=== PATIENT | female | born 1960 | race Caucasian/White ===

== ENCOUNTER 2016-07-22 17:01 | Observation (INO) | payer SELFPAY ==
[~2016-07-22] VITALS: Ht 167.6 cm; Wt 53.2 kg
[~2016-07-22 17:01] MED LIST: LORTA10 PO
[2016-07-22 17:05] VITALS: BP 97/59; PULSE 91; RESP 18; TEMP 98.7; O2SAT 96
[2016-07-22] MEDS ORDERED: SODIUM CHLOR 0.9% 1000 ML INJ 1,000 ML IV SCH (17:22)
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
[2016-07-22] MEDS ORDERED: SODIUM CHLORIDE 0.9% FLUSH 10 ML FLUSH IV FLUSH PRN ×2 (17:30→19:45)
[2016-07-22 18:03] LABS: HEMO FLAGS DIFF FINAL; MEAN CELL VOLUME 99.6 FL (80.0-100.0); MEAN CORPUSCULAR HEMOGLOBIN 34.5 PG (27.0-34.0); MEAN CORPUSCULAR HGB CONC 34.6 % (32.0-36.0); PLATELET COUNT 227 TH/MM3 (150-450); RED BLOOD COUNT 3.81 MIL/MM3 (4.00-5.30); RED CELL DISTRIBUTION WIDTH 14.8 % (11.6-17.2); WHITE BLOOD COUNT 8.4 TH/MM3 (4.0-11.0)
[2016-07-22 18:04] LABS: AUTOMATED NEUTROPHIL # 3.5 TH/MM3 (1.8-7.7); BASOPHIL # 0.1 TH/MM3 (0-0.2); BASOPHIL % 1.3 % (0.0-2.0); EOSINOPHIL # 0.2 TH/MM3 (0-0.4); EOSINOPHIL % 2.9 % (0.0-4.0); LYMPH % 47.1 % (9.0-44.0); LYMPHOCYTE # 4.1 TH/MM3 (1.0-4.8); MONO % 7.3 % (0.0-8.0); NEUT % 41.4 % (16.0-70.0)
[2016-07-22 18:10] LABS: BLOOD, URINE SMALL (NEG); GLUCOSE,URINE NEG (NEG); KETONE, URINE TRACE mg/dL (NEG); NITRITE,URINE NEG (NEG); PH, URINE 5.5 (5.0-8.5)
[2016-07-22 18:12] LABS: CHLORIDE 110 MEQ/L (98-107); POTASSIUM 3.4 MEQ/L (3.5-5.1); SODIUM (NA) 146 MEQ/L (136-145)
[2016-07-22 18:14] VITALS: O2SAT 98
[2016-07-22 18:16] LABS: ANION GAP 9 MEQ/L (5-15); BICARBONATE 27.4 MEQ/L (21.0-32.0)
[2016-07-22 18:17] LABS: BLOOD UREA NITROGEN 22 MG/DL (7-18)
[2016-07-22 18:17] LABS: URINE COLOR YELLOW (YELLW/STRAW)
[2016-07-22 18:18] LABS: AMPHETAMINE, URINE NEG (NEG); BARBITURATES, URINE NEG (NEG); COCAINE, URINE NEG (NEG)
[2016-07-22 18:18] LABS: APTT (PATIENT) 24.4 SEC (24.3-30.1); INTERNATIONAL NORMALIZED RATIO 0.9 RATIO; PROTHROMBIN TIME - PATIENT 9.8 SEC (9.8-11.6)
[2016-07-22 18:19] LABS: ALT (GPT) 61 U/L (10-53); AST (GOT) 69 U/L (15-37); GLOMERULAR FILTRATION RATE 105 ML/MIN (>89)
[2016-07-22 18:21] LABS: TOTAL BILIRUBIN ADULT 0.3 MG/DL (0.2-1.0)
[2016-07-22 18:22] LABS: ALKALINE PHOSPHATASE 45 U/L (45-117)
[2016-07-22 18:22] LABS: COMMENT (UR) CULT NOT INDICATED; CULTURE IF INDICATED CULT NOT INDICATED; SQUAMOUS EPITHELIAL CELL URINE 0-5 /hpf (0-5); WBC, URINE 0-2 /hpf (0-5)
--- NOTE | 2016-07-22 18:27 | RADHPO ---
EXAM DATE/TIME: 07/22/2016 17:52 [facility] COMPARISON: CHEST SINGLE AP, October 06, 2013, 19:33. INDICATIONS : Chest tightness. MEDICAL HISTORY : None. SURGICAL HISTORY : None. ENCOUNTER: Initial ACUITY: 3 months PAIN SCORE: 4/10 LOCATION: Bilateral chest FINDINGS: The lungs are clear without infiltrate, nodule, or mass. There is no appreciable pleural effusion fo r technique. Heart and mediastinum are unremarkable. CONCLUSION: No acute cardiopulmonary disease. Leyla Renteria MD on July 22, 2016 at 18:26 Board Certified Radiologist. This report was verified electronically.
--- NOTE | 2016-07-22 18:40 | RADHPO ---
EXAM DATE/TIME: 07/22/2016 17:56 [facility] COMPARISON: No previous studies available for comparison. INDICATIONS : Bilateral flank pain. Low back pain. Dysuria. ORAL CONTRAST: No oral contrast ingested. RADIATION DOSE: 5.96 CTDIvol (mGy) MEDICAL HISTORY : None SURGICAL HISTORY : Appendectomy. ENCOUNTER: Initial ACUITY: 2 weeks PAIN SCALE: 7/10 LOCATION: Bilateral flank TECHNIQUE: Volumetric scanning of the abdomen and pelvis was performed. Using automated exposure control and ad justment of the mA and/or kV according to patient size, radiation dose was kept as low as reasonably achievable to obtain optimal diagnostic quality images. FINDINGS: CT Abdomen: The liver, spleen, pancreas, kidneys, adrenals are unremarkable. There is no evidence for any appreciable pathological adenopathy, free fluid, or bowel obstruction. Chronic vascular calcific ations are present involving the aorta, iliac arteries without any significant stenosis or aneurysmal dilatations for technique. There is no evidence for any stones in the kidneys or the course of the ureters on either side. There is no hydronephrosis. CT pelvis: There is moderate amount of stool throughout the colon and in the cecum and towards the ti p of the cecum anteromedially there is a masslike area measures 4.6 cm may be a fecaloma, however a m ass is difficult to exclude. CONCLUSION: Possible fecaloma in the cecum, however a mass is difficult to exclude and may consid er nonemergent colonoscopy based on clinical grounds. Leyla Renteria MD on July 22, 2016 at 18:35 Board Certified Radiologist. This report was verified electronically.
[2016-07-22 19:03] VITALS: BP 112/62; PULSE 79; RESP 18; O2SAT 94
[2016-07-22 19:12] LABS: ACETAMINOPHEN LESS THAN 2.0 MCG/ML (10.0-30.0)
[2016-07-22] MEDS ORDERED: BISACODYL 10 MG SUPP RECTAL PRN (19:45)
[2016-07-22] MEDS ORDERED: LORazepam 2 MG TAB PO PRN (19:45)
[2016-07-22] MEDS ORDERED: ACETAMINOPHEN 325 MG TAB PO PRN (19:45)
[2016-07-22] MEDS ORDERED: HALOPERIDOL LACTATE 5 MG/ML AMP IM PRN (19:45)
[2016-07-22] MEDS ORDERED: ONDANSETRON HCL 4 MG/2 ML VIAL IVP PRN (19:45)
[2016-07-22] MEDS ORDERED: LORazepam 2 MG/ML VIAL IV PUSH PRN ×4 (19:45)
[2016-07-22] MEDS ORDERED: FLUMAZENIL 0.5 MG/5 ML VIAL IV PUSH PRN (19:45)
[2016-07-22] MEDS ORDERED: LORazepam 1 MG TAB PO PRN (19:45)
[2016-07-22 20:06] VITALS: BP 114/60; PULSE 80; RESP 18; O2SAT 96
[2016-07-22] MEDS: MULTIVITAMIN INJ 10 ML, FOLIC ACID INJ 1 MG in SODIUM CHLORID 0.9% 500 ML INJ 500 ML IV SCH (20:39)
[2016-07-22] MEDS: SODIUM CHLORIDE 0.9% FLUSH 10 ML FLUSH IV FLUSH SCH (21:00)
[2016-07-23 00:45] VITALS: BP 141/84; PULSE 80; RESP 16; TEMP 99; O2SAT 97
[2016-07-23] MEDS: SODIUM CHLOR 0.9% 1000 ML INJ 1,000 ML IV SCH ×4 (00:55→22:43)
[2016-07-23] MEDS: THIAMINE INJ 100 MG in SODIUM CHLORIDE 0.9% INJ 100 ML IV SCH ×2 (00:56→20:00)
[2016-07-23 04:00] VITALS: BP 155/74; PULSE 79; RESP 16; TEMP 98.8; O2SAT 93
[2016-07-23 06:01] LABS: AUTOMATED NEUTROPHIL # 3.9 TH/MM3 (1.8-7.7); BASOPHIL # 0.1 TH/MM3 (0-0.2); BASOPHIL % 0.9 % (0.0-2.0); EOSINOPHIL # 0.3 TH/MM3 (0-0.4); EOSINOPHIL % 4.1 % (0.0-4.0); HEMO FLAGS DIFF FINAL; LYMPH % 38.3 % (9.0-44.0); LYMPHOCYTE # 2.9 TH/MM3 (1.0-4.8); MEAN CELL VOLUME 98.2 FL (80.0-100.0); MEAN CORPUSCULAR HEMOGLOBIN 33.1 PG (27.0-34.0); MEAN CORPUSCULAR HGB CONC 33.7 % (32.0-36.0); MONO % 5.9 % (0.0-8.0); NEUT % 50.8 % (16.0-70.0); PLATELET COUNT 190 TH/MM3 (150-450); RED BLOOD COUNT 3.67 MIL/MM3 (4.00-5.30); RED CELL DISTRIBUTION WIDTH 14.9 % (11.6-17.2); WHITE BLOOD COUNT 7.6 TH/MM3 (4.0-11.0)
[2016-07-23 06:10] LABS: CHLORIDE 112 MEQ/L (98-107); POTASSIUM 3.4 MEQ/L (3.5-5.1); SODIUM (NA) 146 MEQ/L (136-145)
[2016-07-23 06:14] LABS: ANION GAP 10 MEQ/L (5-15); BICARBONATE 24.1 MEQ/L (21.0-32.0)
[2016-07-23 06:15] LABS: BLOOD UREA NITROGEN 15 MG/DL (7-18)
[2016-07-23 06:18] LABS: ALT (GPT) 58 U/L (10-53); AST (GOT) 66 U/L (15-37); GLOMERULAR FILTRATION RATE 144 ML/MIN (>89)
[2016-07-23 06:19] LABS: TOTAL BILIRUBIN ADULT 0.6 MG/DL (0.2-1.0)
[2016-07-23 06:20] LABS: ALKALINE PHOSPHATASE 39 U/L (45-117)
[2016-07-23 08:00] VITALS: BP 140/81; PULSE 68; RESP 16; TEMP 98.4; O2SAT 96
[2016-07-23] MEDS: SODIUM CHLORIDE 0.9% FLUSH 10 ML FLUSH IV FLUSH SCH ×2 (09:00→21:00)
[2016-07-23 12:00] VITALS: BP 155/75; PULSE 62; RESP 16; TEMP 98.2; O2SAT 95
--- NOTE | 2016-07-23 13:23 | HHI.HP ---
[facility] [place] [facility] Unknown Admission Diagnosis alcohol intoxication, abdominal pain, fecaloma versus colon mass Diagnoses: Chief Complaint: Alcohol intoxication, joint aches, pain. Travel History International Travel<30 Days: No Contact w/Intl Traveler <30 Da: No Traveled to Known Affected Are: No History of Present Illness Ms. Bhat is a 55 year old female with a history of alcoholism who presented to the ED on 07/22/2016 for evaluation of joint pains and aches. She also requested alcohol detox. She tried to detox on her own but had trouble dealing with withdrawal symptoms. So she started drinking again. She reports room spinning sensation whenever she moves her head. However, slow movement of her head does not cause much symptoms. She also expressed suicidal ideations. Initial alcohol level was 334. ED workup included CT abdomen pelvis which showed possible fecaloma in the cecum however a mass was difficult to exclude. Patient was subsequently admitted to the hospital for observation. Patient denies any chest pain, SOB, fever, chills. No changes in bowel or bladder habits. Review of Systems Except as stated in HPI: all other systems reviewed are Neg Past Family Social History Past Medical History Alcoholism Arthritis. Past Surgical History Appendectomy Gynecological surgery. Reported Medications No medication on a regular basis. Allergies: Coded Allergies: No Known Allergies (Unverified , 07/22/16) Family History Mother - lung cancer. Dad left when she was 3. Social History Smokes pack a day. Drinks alcohol. Denies using illicit drugs. Physical Exam Vital Signs Vital Signs Date Time Temp Pulse Resp B/P Pulse Ox O2 Delivery O2 Flow Rate FiO2 07/23/16 08:00 98.4 68 16 140/81 96 07/23/16 04:00 98.8 79 16 155/74 93 07/23/16 00:45 99.0 80 16 141/84 97 07/23/16 00:26 18 07/22/16 23:04 18 07/22/16 23:04 18 07/22/16 21:28 18 Room Air 07/22/16 20:15 80 18 07/22/16 20:06 80 18 114/60 96 Room Air 07/22/16 19:03 79 18 112/62 94 Room Air 07/22/16 19:03 82 18 94 Room Air 07/22/16 18:14 98 Room Air 07/22/16 17:05 98.7 91 18 97/59 96 Physical Exam GENERAL: This is a well-nourished, well-developed patient, in no apparent distress. No tremors. SKIN: No rashes, ecchymoses or lesions. Warm and dry. HEAD: Atraumatic. Normocephalic. No temporal or scalp tenderness. EYES: Pupils equal round and reactive. No injection or drainage. ENT: Nose without bleeding, purulent drainage or septal hematoma. Airway patent. NECK: Trachea midline. No lymphadenopathy. Supple, nontender, no meningeal signs. CARDIOVASCULAR: Regular rate and rhythm without murmurs, gallops, or rubs. No JVD. RESPIRATORY: Moderate air entry. Breath sounds equal bilaterally. No wheezes, rales, or rhonchi. GASTROINTESTINAL: Abdomen soft, non-tender, nondistended. No guarding. MUSCULOSKELETAL: Extremities without clubbing, cyanosis, or edema. NEUROLOGICAL: Awake and alert. Cranial nerves II through XII intact. No focal neurological deficits. Normal speech. Laboratory Laboratory Tests Test 07/22/16 07/22/16 07/23/16 17:35 18:00 05:00 White Blood Count 8.4 7.6 Red Blood Count 3.81 3.67 Hemoglobin 13.1 12.1 Hematocrit 38.0 36.0 Mean Corpuscular Volume 99.6 98.2 Mean Corpuscular Hemoglobin 34.5 33.1 Mean Corpuscular Hemoglobin 34.6 33.7 Concent Red Cell Distribution Width 14.8 14.9 Platelet Count 227 190 Mean Platelet Volume 7.6 7.4 Neutrophils (%) (Auto) 41.4 50.8 Lymphocytes (%) (Auto) 47.1 38.3 Monocytes (%) (Auto) 7.3 5.9 Eosinophils (%) (Auto) 2.9 4.1 Basophils (%) (Auto) 1.3 0.9 Neutrophils # (Auto) 3.5 3.9 Lymphocytes # (Auto) 4.1 2.9 Monocytes # (Auto) 0.6 0.4 Eosinophils # (Auto) 0.2 0.3 Basophils # (Auto) 0.1 0.1 CBC Comment DIFF FINAL DIFF FINAL Differential Comment Prothrombin Time 9.8 Prothromb Time International 0.9 Ratio Activated Partial 24.4 Thromboplast Time Sodium Level 146 146 Potassium Level 3.4 3.4 Chloride Level 110 112 Carbon Dioxide Level 27.4 24.1 Anion Gap 9 10 Blood Urea Nitrogen 22 15 Creatinine 0.59 0.45 Estimat Glomerular Filtration 105 144 Rate Random Glucose 90 104 Calcium Level 8.1 7.6 Total Bilirubin 0.3 0.6 Aspartate Amino Transf 69 66 (AST/SGOT) Alanine Aminotransferase 61 58 (ALT/SGPT) Alkaline Phosphatase 45 39 Total Protein 6.8 6.1 Albumin 3.6 3.2 Salicylates Level 4.3 Acetaminophen Level LESS THAN 2.0 Ethyl Alcohol Level 334 Urine Color YELLOW Urine Turbidity CLEAR Urine pH 5.5 Urine Specific [place] 1.026 Urine Protein TRACE Urine Glucose (UA) NEG Urine Ketones TRACE Urine Occult Blood SMALL Urine Nitrite NEG Urine Bilirubin NEG Urine Leukocyte Esterase NEG Urine RBC 3-5 Urine WBC 0-2 Urine Squamous Epithelial 0-5 Cells Urine Bacteria NONE Microscopic Urinalysis Comment CULT NOT INDICATED Urine Opiates Screen NEG Urine Barbiturates Screen NEG Urine Amphetamines Screen NEG Urine Benzodiazepines Screen NEG Urine Cocaine Screen NEG Urine Cannabinoids Screen NEG Result Diagram: 07/23/16 0500 07/23/16 0500 Imaging Last Impressions Abdomen/Pelvis CT 07/22/16 1722 Signed Impressions: Service Date/Time: July 17:56 - CONCLUSION: Possible fecaloma in the cecum, however a mass is difficult to exclude and may consider nonemergent colonoscopy based on clinical grounds. Leyla Renteria MD Chest X-Ray 07/22/16 0000 Signed Impressions: Service Date/Time: July 17:52 - CONCLUSION: No acute cardiopulmonary disease. Leyla Renteria MD Assessment and Plan Problem List: (1) Alcohol intoxication ICD Code: F10.129 Status: Acute (2) Fecaloma ICD Code: K56.41 Status: Acute (3) Arthritis ICD Code: M19.90 Status: Acute (4) Vertigo ICD Code: R42 Status: Acute Assessment and Plan Ms. Bhat is a 55-year-old female who presented to the hospital on 07/22/2016 due to joint pain and aches. She also requested alcohol detox. CT abdomen pelvis was done due to abdominal pain. Imaging studies shows fecaloma in the cecum - however a mass could not be excluded. Gastroenterology was consulted. - Acute alcohol intoxication - Continue CIWA protocol. - Continue multivitamins, thiamine. - Start Librium 10 mg 3 times a day. - Fecaloma versus colonic mass - Awaiting input from gastroenterology. - Hand arthritis - will get Hand x-ray. Acetaminophen for pain. - Vertigo - start meclizine. - Transfer to the floor. Full code. Lovenox. Problem Qualifiers (1) Alcohol intoxication: Qualified Code: F10.120 - Alcohol intoxication, uncomplicated Kameron Bell DO Jul 23, 2016 13:23
--- NOTE | 2016-07-23 15:56 | PD.CONS ---
Provisional Diagnosis Admission Date Jul 22, 2016 at 19:39 [place] I. Alcohol-induced mood disorder, alcohol disorder [place] II. Deferred [place] III. No medical history [place] IV. Recently became unemployed [place] V. 54 History of Present Illness Service Psychiatry Consult Requested By Primary Care Physician Unknown HPI The patient is a 55-year-old woman, domiciled with her daughter and her mother in [place], unemployed, , with psychiatric history of alcohol use disorder, no previous psychiatric hospitalizations, no previous suicidal attempts, history of self cutting behavior with no SI, no significant medical history, who presented to the ED on 07/22/2016 for evaluation of joint pains and aches. She also requested alcohol detox. She tried to detox on her own but had trouble dealing with withdrawal symptoms. Initial alcohol level was 334. Admitted due to abdominal CT finding fecaloma, dehydration. Patient expressed suicidal ideation in the ER. Consulted to psychiatry. On somatic evaluation the patient denies depressive symptoms, she states that she was drunk when she stated that she wanted to . She denies depressive symptoms, she denies anxiety, she denies anhedonia, denies hopelessness she denies visual and auditory hallucinations, and she denies suicidal or homicidal ideation.. Patient is fully oriented 3, no gross cognitive impairment observed. No agitation, no aggressive behavior, no paranoia, no delusions observed. Patient reports daily use of alcohol, difficult to quantify, she says she drinks a pint of vodka at least everyday. Patient is motivated to go to detox/rehabilitation. Review of Systems Constitutional: DENIES: Diaphoretic episodes, Fatigue, Fever, Weight gain, Weight loss, Chills, Dizziness, Change in appetite, Night Sweats Endocrine: DENIES: Abnorml menstrual pattern, Heat/cold intolerance, Polydipsia , Polyuria, Polyphagia Eyes: DENIES: Blurred vision, Diplopia, Eye inflammation, Eye pain, Vision loss , Photosensitivity, Double Vision Ears, nose, mouth, throat: DENIES: Tinnitus, Hearing loss, Vertigo, Nasal discharge, Oral lesions, Throat pain, Hoarseness, Ear Pain, Running Nose, Epistaxis, Sinus Pain, Toothache, Odynophagia Respiratory: DENIES: Apneas, Cough, Snoring, Wheezing, Hemoptysis, Sputum production, Shortness of breath Cardiovascular: DENIES: Chest pain, Palpitations, Syncope, Dyspnea on Exertion , PND, Lower Extremity Edema, Orthopnea, Claudication Genitourinary: DENIES: Abnormal vaginal bleeding, Dysmenorrhea, Dyspareunia, Sexual dysfunction, Urinary frequency, Urinary incontinence, Urgency, Hematuria , Dysuria, Nocturia, Vaginal discharge Musculoskeletal: DENIES: Joint pain, Muscle aches, Stiffness, Joint Swelling, Back pain, Neck pain Integumentary: DENIES: Abnormal pigmentation, Pruritus, Rash, Nail changes, Breast masses, Breast skin changes, Nipple discharge Hematologic/lymphatic: DENIES: Bruising, Lymphadenopathy Immunologic/allergic: DENIES: Eczema, Urticaria Neurologic: DENIES: Abnormal gait, Headache, Localized weakness, Paresthesias, Seizures, Speech Problems, Tremor, Poor Balance Psychiatric: DENIES: Anxiety, Confusion, Mood changes, Depression, Hallucinations, Agitation, Suicidal Ideation, Homicidal Ideation, Delusions Past Family Social History Coded Allergies: No Known Allergies (Unverified , 07/22/16) No Active Prescriptions or Reported Meds Current Medications Medications (Trade) Dose Ordered Sig/Conrad Route Start Time Stop Time Status Last Admin Multivitamins 10 ml/Folic Acid 1 mg/Sodium Chloride 510.2 ml @ 125 mls/hr Q24H IV 07/22/16 20:00 07/27/16 19:59 07/22/16 20:39 (Thiamine Inj/NS Inj) 101 ml @ 100 mls/hr Q24H IV 07/22/16 20:00 07/25/16 19:59 07/23/16 00:56 (Vitamin B1) 100 mg DAILY PO 07/26/16 09:00 (Romazicon Inj) 0.2 mg Q1M PRN IV PUSH 07/22/16 19:45 (Ativan) 1 mg Q4H PRN PO 07/22/16 19:45 (Ativan Inj) 1 mg Q4H PRN IV PUSH 07/22/16 19:45 (Ativan) 2 mg Q2H PRN PO 07/22/16 19:45 (Ativan Inj) 2 mg Q2H PRN IV PUSH 07/22/16 19:45 (Ativan Inj) 2 mg Q1H PRN IV PUSH 07/22/16 19:45 (Ativan Inj) 2 mg Q15M PRN IV PUSH 07/22/16 19:45 Haloperidol Lactate 2 mg 2 mg Q15M PRN IM 07/22/16 19:45 (NS 1000 ml Inj) 1,000 ml @ 100 mls/hr Q10H IV 07/22/16 19:32 07/23/16 00:55 (NS Flush) 2 ml UNSCH PRN IV FLUSH 07/22/16 19:45 (NS Flush) 2 ml BID IV FLUSH 07/22/16 21:00 07/22/16 21:00 (Zofran Inj) 4 mg Q6H PRN IVP 07/22/16 19:45 (Dulcolax Supp) 10 mg DAILY PRN RECTAL 07/22/16 19:45 (Tylenol) 650 mg Q6H PRN PO 07/22/16 19:45 (Roxicodone) 10 mg Q4H PRN PO 07/22/16 19:45 (Roxicodone) 5 mg Q4H PRN PO 07/22/16 19:45 (Lovenox Inj) 40 mg Q24H SQ 07/23/16 16:00 (Librium) 10 mg TID PO 07/23/16 18:00 Family History She denies Social History Patient was born and raised in [place], she is unemployed, recently lost her job in [employer] due to alcoholism, she is , lives with her daughter and her mother, her highest level of education is high school Patient's Strengths (min. 2) Verbal communication Physical Exam On physical exam, no withdrawal symptoms, no EPS, no rigidity, no gait abnormalities, no stiffness, no skin lesions, Vital Signs Vital Signs Date Time Temp Pulse Resp B/P Pulse Ox O2 Delivery O2 Flow Rate FiO2 07/23/16 12:00 98.2 62 16 155/75 95 07/22/16 21:28 Room Air I/O 07/22/16 07/22/16 07/23/16 08:00 16:00 00:00 Intake Total 1000 ml Balance 1000 ml Lab Results NA 146, K3.5, BUN 15, creatinine 0.4, BAL 339, AST 66, ALT 54 CT abdomen pelvis which showed possible fecaloma in the cecum however a mass was difficult to exclude. Mental Status Examination Appearance woman, good hygiene, age appearing, calm, cooperative a little bit agreeable Speech: Unremarkable Orientation: x3 Memory: Impaired (describe) Thought Process: Logical Thought Content: Unremarkable Hallucination Type: None Suicidal Ideation: No Homicidal Ideation: No Previous Homicide Attempts: No Insight: Good Mood: Appropriate Motor Activity: Normal gait Assessment & Plan Problem List: (1) Alcohol abuse with alcohol-induced mood disorder Assessment & Plan: At the moment of this evaluation the patient does not present any acute, significant or concerning objective or subjective symptomatology of depression, anxiety, khadijah or psychosis. She denies suicidal or homicidal ideation, she denies visual and auditory hallucinations. Recent suicidal statement was done in the context of alcohol intoxication, but not the patient is clinically sober she denies suicidal intentions. She is motivated to go to detox/rehabilitation and follow-up medical recommendations. Patient has history of self cutting behavior, but denies SI behind this. The patient does not meet criteria for psychiatric admission at this moment. Continue CIWA protocol. Order trazodone 50 at bedtime to help for sleep. Extensive psychoeducation, supportive motivation provided. [employer] act will be lifted.. ICD Code: F10.14 Assessment & Plan Estimated LOS: Barney Wilde MD Jul 23, 2016 15:56
[2016-07-23] MEDS: ENOXAPARIN SODIUM 40 MG/0.4 ML SYRINGE SQ SCH (17:08)
--- NOTE | 2016-07-23 17:34 | RADHPO ---
EXAM DATE/TIME: 07/23/2016 17:13 [facility] COMPARISON: No previous studies available for comparison. INDICATIONS : Chronic right hand pain. MEDICAL HISTORY : None. SURGICAL HISTORY : Appendectomy. ENCOUNTER: Initial ACUITY: 1 week PAIN SCORE: 6/10 LOCATION: Right upper extremity FINDINGS: No definite fractures, or dislocations are identified. No definite lytic or sclerotic lesion is seen . The joint spaces are well maintained. CONCLUSION: Unremarkable study. Leyla Renteria MD on July 23, 2016 at 17:32 Board Certified Radiologist. This report was verified electronically.
--- NOTE | 2016-07-23 17:34 | RADHPO ---
EXAM DATE/TIME: 07/23/2016 17:13 [place] COMPARISON: No previous studies available for comparison. INDICATIONS : Chronic left hand pain. MEDICAL HISTORY : None. SURGICAL HISTORY : Appendectomy. ENCOUNTER: Initial ACUITY: 1 week PAIN SCORE: 6/10 LOCATION: Left upper extremity FINDINGS: No definite fractures, or dislocations are identified. No definite lytic or sclerotic lesion is seen . The joint spaces are well maintained. approximate 5 mm round calcification is present in the volar aspect of the patient's hand at the level of the third proximal metatarsal bone possibly a phlebolit h the exact etiology is not certain. CONCLUSION: No definite fracture is seen for technique. KRadha Renteria MD on July 23, 2016 at 17:31 Board Certified Radiologist. This report was verified electronically.
--- NOTE | 2016-07-23 19:28 | MB ---
cc: EMERITA BINGHAM M.D., AHMED DATE OF CONSULTATION: 07/23/2016. REASON FOR CONSULTATION: Abnormal CT scan suggesting possibility of colon cancer. PATIENT OF: Dr. Melo. HISTORY OF PRESENT ILLNESS: Ms. Bhat is a 55-year-old lady with strong history of alcohol who basically came in with generalized aches and pains for alcohol detoxification. Currently she has a sitter with her. She also tells me she has lost about 20 pounds in the last few months. She says she is eating well. Her bowels are moving regularly. She is not sure why she is losing weight. She has had no bleeding. There is a family history of lung cancer but no family history of colon polyps or cancer. REVIEW OF SYSTEMS: Unremarkable. PAST MEDICAL HISTORY: 1. Alcoholism. 2. Arthritis. PAST SURGICAL HISTORY: 1. Appendectomy. 2. Gynecological surgery. 3. No previous colonoscopy MEDICATIONS ON ADMISSION: None. ALLERGIES: NONE DOCUMENTED. FAMILY HISTORY: Lung cancer. SOCIAL HISTORY: The patient is a smoker. No alcohol. PHYSICAL EXAMINATION: GENERAL: The physical examination reveals a well-nourished lady who is in no apparent distress. VITAL SIGNS: Stable. HEAD AND NECK: Anicteric sclerae. CHEST: Bilateral air entry ABDOMEN: Abdomen is soft, nontender, no hepatosplenomegaly. Bowel sounds are present. SAFETY AND HEALTH MANAGER: Nonfocal. RECTAL: Deferred at this time. LABORATORY DATA: Labs reveal admission alcohol level of 334, AST 66, ALT 50, AST 58. INR is 0.9. Hemoglobin 12.1. IMAGING STUDIES: A CT of the abdomen and pelvis: Possible fecaloma versus a mass in the cecum. IMPRESSION: 1. Weight loss. 2. Abnormal CT scan. RECOMMENDATIONS: The patient needs a colonoscopy and this has been discussed with her. This can be done on Tuesday if the patient is here over the weekend, otherwise can be scheduled as an outpatient. We will follow with you. Thank you for this referral. MD IRENE Fox/ROCK /5:37 PM /7:21 PM
[2016-07-23 20:10] VITALS: BP 171/89; PULSE 57; RESP 16; TEMP 97.9; O2SAT 95
[2016-07-23] MEDS ORDERED: LORazepam 2 MG/ML VIAL IV PUSH ONE (22:15)
[2016-07-23] MEDS ORDERED: clonazePAM 0.5 MG TAB PO PRN (22:15)
[2016-07-23] MEDS ORDERED: MORPHINE SULFATE 4 MG/ML INJ IV PUSH PRN (22:15)
[2016-07-23] MEDS: MECLIZINE HCL 25 MG TAB PO SCH (22:21)
[2016-07-23] MEDS: MULTIVITAMIN INJ 10 ML, FOLIC ACID INJ 1 MG in SODIUM CHLORID 0.9% 500 ML INJ 500 ML IV SCH (23:45)
[2016-07-24] VITALS: BP 160/92; PULSE 72; RESP 18; TEMP 96; O2SAT 97
[2016-07-24 04:00] VITALS: BP 156/84; PULSE 57; RESP 18; TEMP 96; O2SAT 97
[2016-07-24] MEDS: MECLIZINE HCL 25 MG TAB PO SCH ×3 (06:34→20:54)
[2016-07-24 08:00] VITALS: BP 144/86; PULSE 60; RESP 19; TEMP 96.1; O2SAT 98
[2016-07-24] MEDS: SODIUM CHLORIDE 0.9% FLUSH 10 ML FLUSH IV FLUSH SCH ×2 (08:49→20:55)
--- NOTE | 2016-07-24 08:58 | HHI.PR ---
Subjective Remarks Follow up for alcohol intoxication, fecaloma. Patient is doing well. No acute concerns. Had a good night. No fever, chills. Objective Vitals Vital Signs Date Time Temp Pulse Resp B/P Pulse Ox O2 Delivery O2 Flow Rate FiO2 07/24/16 08:00 96.1 60 19 144/86 98 07/24/16 04:00 96.0 57 18 156/84 97 07/24/16 00:00 96.0 72 18 160/92 97 07/23/16 20:10 97.9 57 16 171/89 95 07/23/16 12:00 98.2 62 16 155/75 95 I/O 07/23/16 07/23/16 07/23/16 07/24/16 07/24/16 07/24/16 07:00 15:00 23:00 07:00 15:00 23:00 Intake Total 0 ml Balance 0 ml Intake Oral 0 ml # Voids 1 3 # Bowel Movements 1 Result Diagram: 07/23/16 0500 07/23/16 0500 Imaging Last Impressions Hand X-Ray 07/23/16 0000 Signed Impressions: Service Date/Time: Saturday, July 23, 2016 17:13 - CONCLUSION: Unremarkable study. Leyla Renteria MD Abdomen/Pelvis CT 07/22/16 1722 Signed Impressions: Service Date/Time: July 17:56 - CONCLUSION: Possible fecaloma in the cecum, however a mass is difficult to exclude and may consider nonemergent colonoscopy based on clinical grounds. Leyla Renteria MD Chest X-Ray 07/22/16 0000 Signed Impressions: Service Date/Time: July 17:52 - CONCLUSION: No acute cardiopulmonary disease. Leyla Renteria MD Objective Remarks GENERAL: AOX3, NAD. SKIN: Warm and dry. HEAD: Normocephalic. EYES: No scleral icterus. No injection or drainage. NECK: Supple, trachea midline. No JVD or lymphadenopathy. CARDIOVASCULAR: Regular rate and rhythm without murmurs, gallops, or rubs. RESPIRATORY: Breath sounds equal bilaterally. No accessory muscle use. GASTROINTESTINAL: Abdomen soft, non-tender, nondistended. MUSCULOSKELETAL: No cyanosis, or edema. BACK: Nontender without obvious deformity. No CVA tenderness. Procedures None. 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 Bhat is a 55-year-old female who presented to the hospital on 07/22/2016 due to joint pain and aches. She also requested alcohol detox. CT abdomen pelvis was done due to abdominal pain. Imaging studies shows fecaloma in the cecum - however a mass could not be excluded. Gastroenterology was consulted. - Acute alcohol intoxication - Continue CIWA protocol. - Continue multivitamins, thiamine. - Continue Librium 10 mg 3 times a day. - Fecaloma versus colonic mass - GI recommends colonoscopy on Tuesday07/26/2016. - Hand arthritis - will get Hand x-ray. Acetaminophen for pain. - Vertigo - continue meclizine. Full code. Lovenox. Problem Qualifiers (1) Alcohol intoxication: Qualified Code: F10.120 - Alcohol intoxication, uncomplicated Kameron Bell DO Jul 24, 2016 08:58
--- NOTE | 2016-07-24 10:32 | HHI.GIFU ---
GI Follow-up Note Consult Follow-up Subjective: Patient laying in bed comfortably,feeling better.no nausea, vomiting , abdominal pain.Feeling better.states she has weight loss-30 lbs last few month.Never had egd/colonoscopy Objective: PHYSICAL EXAMINATION: Vitals signs stable No fever Vital Signs Date Time Temp Pulse Resp B/P Pulse Ox O2 Delivery O2 Flow Rate FiO2 07/24/16 08:00 96.1 60 19 144/86 98 07/24/16 04:00 96.0 57 18 156/84 97 HEENT: Pupils round and reactive to light; normocephalic; atraumatic; no jaundice. Throat is clear. NECK: Neck is supple, no JVD, no lymphadenopathy. CHEST: Chest is clear to auscultation and percussion. CARDIAC: Regular rate and rhythm with no murmur gallop or rubs. ABDOMEN: Soft, nondistended, nontender; no hepatosplenomegaly; bowel sounds are present in all four quadrants. EXTREMITIES: No clubbing, cyanosis, or edema. SKIN: Normal; no rash; no jaundice. FORMS BUILDER: No focal deficits; alert and oriented times three. Available Data (labs, X- Rays, Procedues) : Laboratory Tests Test 07/22/16 07/22/16 07/23/16 17:35 18:00 05:00 White Blood Count 8.4 TH/MM3 7.6 TH/MM3 Red Blood Count 3.81 MIL/MM3 3.67 MIL/MM3 Hemoglobin 13.1 GM/DL 12.1 GM/DL Hematocrit 38.0 % 36.0 % Mean Corpuscular Volume 99.6 FL 98.2 FL Mean Corpuscular Hemoglobin 34.5 PG 33.1 PG Mean Corpuscular Hemoglobin 34.6 % 33.7 % Concent Red Cell Distribution Width 14.8 % 14.9 % Platelet Count 227 TH/MM3 190 TH/MM3 Mean Platelet Volume 7.6 FL 7.4 FL Neutrophils (%) (Auto) 41.4 % 50.8 % Lymphocytes (%) (Auto) 47.1 % 38.3 % Monocytes (%) (Auto) 7.3 % 5.9 % Eosinophils (%) (Auto) 2.9 % 4.1 % Basophils (%) (Auto) 1.3 % 0.9 % Neutrophils # (Auto) 3.5 TH/MM3 3.9 TH/MM3 Lymphocytes # (Auto) 4.1 TH/MM3 2.9 TH/MM3 Monocytes # (Auto) 0.6 TH/MM3 0.4 TH/MM3 Eosinophils # (Auto) 0.2 TH/MM3 0.3 TH/MM3 Basophils # (Auto) 0.1 TH/MM3 0.1 TH/MM3 CBC Comment DIFF FINAL DIFF FINAL Differential Comment Prothrombin Time 9.8 SEC Prothromb Time International 0.9 RATIO Ratio Activated Partial 24.4 SEC Thromboplast Time Sodium Level 146 MEQ/L 146 MEQ/L Potassium Level 3.4 MEQ/L 3.4 MEQ/L Chloride Level 110 MEQ/L 112 MEQ/L Carbon Dioxide Level 27.4 MEQ/L 24.1 MEQ/L Anion Gap 9 MEQ/L 10 MEQ/L Blood Urea Nitrogen 22 MG/DL 15 MG/DL Creatinine 0.59 MG/DL 0.45 MG/DL Estimat Glomerular Filtration 105 ML/MIN 144 ML/MIN Rate Random Glucose 90 MG/DL 104 MG/DL Calcium Level 8.1 MG/DL 7.6 MG/DL Total Bilirubin 0.3 MG/DL 0.6 MG/DL Aspartate Amino Transf 69 U/L 66 U/L (AST/SGOT) Alanine Aminotransferase 61 U/L 58 U/L (ALT/SGPT) Alkaline Phosphatase 45 U/L 39 U/L Total Protein 6.8 GM/DL 6.1 GM/DL Albumin 3.6 GM/DL 3.2 GM/DL Salicylates Level 4.3 MG/DL Acetaminophen Level LESS THAN 2.0 MCG/ML Ethyl Alcohol Level 334 MG/DL Urine Color YELLOW Urine Turbidity CLEAR Urine pH 5.5 Urine Specific [place] 1.026 Urine Protein TRACE mg/dL Urine Glucose (UA) NEG mg/dL Urine Ketones TRACE mg/dL Urine Occult Blood SMALL Urine Nitrite NEG Urine Bilirubin NEG Urine Leukocyte Esterase NEG Urine RBC 3-5 /hpf Urine WBC 0-2 /hpf Urine Squamous Epithelial 0-5 /hpf Cells Urine Bacteria NONE /hpf Microscopic Urinalysis Comment CULT NOT INDICATED Urine Opiates Screen NEG Urine Barbiturates Screen NEG Urine Amphetamines Screen NEG Urine Benzodiazepines Screen NEG Urine Cocaine Screen NEG Urine Cannabinoids Screen NEG ASSESSMENT/PLAN: abnormal ct questionable mass vs fecaloma in cecum-colonoscopy Tuesday weight loss, abdominal pain-egd Tuesday elevated lfts most likely secondary etoh Recommendations egd/colon Juan R monitor lfts hepatitis profile avoid etoh, hepatotoxics It was a pleasure seeing Clement Bhat. Thank you for this consult. Entered by: Kristina Mckeon MD Jul 24, 2016 10:32
[2016-07-24] MEDS: SODIUM CHLOR 0.9% 1000 ML INJ 1,000 ML IV SCH ×2 (11:32→21:32)
[2016-07-24 12:00] VITALS: BP 157/95; PULSE 65; RESP 20; TEMP 96.6; O2SAT 97
[2016-07-24 16:00] VITALS: BP 156/95; PULSE 65; RESP 20; TEMP 97; O2SAT 99
[2016-07-24] MEDS: ENOXAPARIN SODIUM 40 MG/0.4 ML SYRINGE SQ SCH (17:24)
[2016-07-24] MEDS: THIAMINE INJ 100 MG in SODIUM CHLORIDE 0.9% INJ 100 ML IV SCH (20:55)
[2016-07-24] MEDS: MULTIVITAMIN INJ 10 ML, FOLIC ACID INJ 1 MG in SODIUM CHLORID 0.9% 500 ML INJ 500 ML IV SCH (20:55)
[2016-07-24 21:19] VITALS: BP 151/82; PULSE 72; RESP 16; TEMP 98.3; O2SAT 99
[2016-07-25 00:51] VITALS: BP 127/76; PULSE 69; RESP 18; TEMP 98.1; O2SAT 100
[2016-07-25] MEDS: MECLIZINE HCL 25 MG TAB PO SCH ×3 (05:49→21:50)
[2016-07-25 08:00] VITALS: BP 169/86; PULSE 57; RESP 20; TEMP 96.5; O2SAT 100
[2016-07-25] MEDS: SODIUM CHLOR 0.9% 1000 ML INJ 1,000 ML IV SCH (08:40)
[2016-07-25] MEDS: SODIUM CHLORIDE 0.9% FLUSH 10 ML FLUSH IV FLUSH SCH ×2 (08:41→20:29)
--- NOTE | 2016-07-25 09:13 | HHI.PR ---
Subjective Remarks Follow up for alcohol intoxication, fecaloma. Patient is doing well. No acute concerns. Denies any fever, chills. Colonoscopy tomorrow. Objective Vitals Vital Signs Date Time Temp Pulse Resp B/P Pulse Ox O2 Delivery O2 Flow Rate FiO2 07/25/16 08:00 96.5 57 20 169/86 100 07/25/16 06:49 18 07/25/16 00:51 98.1 69 18 127/76 100 07/24/16 21:19 98.3 72 16 151/82 99 07/24/16 16:00 97.0 65 20 156/95 99 07/24/16 12:00 96.6 65 20 157/95 97 I/O 07/24/16 07/24/16 07/24/16 07/25/16 07/25/16 07/25/16 07:00 15:00 23:00 07:00 15:00 23:00 # Voids 3 3 # Bowel Movements 1 Result Diagram: 07/23/16 0500 07/23/16 0500 Imaging Last Impressions Hand X-Ray 07/23/16 0000 Signed Impressions: Service Date/Time: Saturday, July 23, 2016 17:13 - CONCLUSION: Unremarkable study. Leyla Renteria MD Abdomen/Pelvis CT 07/22/16 1722 Signed Impressions: Service Date/Time: July 17:56 - CONCLUSION: Possible fecaloma in the cecum, however a mass is difficult to exclude and may consider nonemergent colonoscopy based on clinical grounds. Leyla Renteria MD Chest X-Ray 07/22/16 0000 Signed Impressions: Service Date/Time: July 17:52 - CONCLUSION: No acute cardiopulmonary disease. Leyla Renteria MD Objective Remarks GENERAL: AOX3, NAD. SKIN: Warm and dry. HEAD: Normocephalic. EYES: No scleral icterus. No injection or drainage. NECK: Supple, trachea midline. No JVD or lymphadenopathy. CARDIOVASCULAR: Regular rate and rhythm without murmurs, gallops, or rubs. RESPIRATORY: Breath sounds equal bilaterally. No accessory muscle use. GASTROINTESTINAL: Abdomen soft, non-tender, nondistended. MUSCULOSKELETAL: No cyanosis, or edema. BACK: Nontender without obvious deformity. No CVA tenderness. Procedures None. 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 Bhat is a 55-year-old female who presented to the hospital on 07/22/2016 due to joint pain and aches. She also requested alcohol detox. CT abdomen pelvis was done due to abdominal pain. Imaging studies shows fecaloma in the cecum - however a mass could not be excluded. Gastroenterology was consulted. - Acute alcohol intoxication - Continue CIWA protocol. - Continue multivitamins, thiamine. - Continue Librium 10 mg 3 times a day. - Will d/c IV fluid. - Fecaloma versus colonic mass - GI recommends colonoscopy on Tuesday07/26/2016. - Hand arthritis - will get Hand x-ray. Acetaminophen for pain. - Vertigo - continue meclizine. Full code. Lovenox. Problem Qualifiers (1) Alcohol intoxication: Qualified Code: F10.120 - Alcohol intoxication, uncomplicated Kameron Bell DO Jul 25, 2016 9:13 am
[2016-07-25] MEDS ORDERED: PEG (High)/E-LYTE SOLN 4000 ML BTL PO ONE (10:45)
[2016-07-25 12:00] VITALS: BP 125/80; PULSE 61; RESP 20; TEMP 96; O2SAT 99
[2016-07-25] MEDS: ENOXAPARIN SODIUM 40 MG/0.4 ML SYRINGE SQ SCH (16:13)
[2016-07-25 16:19] VITALS: BP 148/79; PULSE 57; RESP 20; TEMP 96; O2SAT 100
[2016-07-25] MEDS: MULTIVITAMIN INJ 10 ML, FOLIC ACID INJ 1 MG in SODIUM CHLORID 0.9% 500 ML INJ 500 ML IV SCH (20:29)
[2016-07-25 21:23] VITALS: BP 157/93; PULSE 61; RESP 18; TEMP 98.7; O2SAT 97
[2016-07-26 00:54] VITALS: BP 165/85; PULSE 50; RESP 16; TEMP 96.5; O2SAT 97
[2016-07-26] MEDS: MECLIZINE HCL 25 MG TAB PO SCH (06:06)
[2016-07-26 06:44] VITALS: BP 152/77; PULSE 53; RESP 16; TEMP 98.3; O2SAT 98
--- NOTE | 2016-07-26 08:06 | GIPROC ---
[facility] [address] [place] [address], [id number] COLONOSCOPY PROCEDURE REPORT EXAM DATE: 07/26/2016 PATIENT NAME: Clement Bhat MR #: [id number] BIRTHDATE: 1960 ENDOSCOPIST: Esthela Restrepo MD ORDER #: [id number] SALES REPRESENTATIVE: Alexa Mart and Blayne Dumas STATUS: inpatient INDICATIONS: The patient is a 55 yr old female here for a colonoscopy due to abdominal pain and an abnormal CT PROCEDURE PERFORMED: Colonoscopy with polypectomy MEDICATIONS: None and Per Anesthesia. PREP QUALITY: 10 % obscured ESTIMATED BLOOD LOSS: None CONSENT: The patient understands the risks and benefits of the procedure and understands that these risks include, but are not limited to: sedation, allergic reaction, infection, perforation and/or bleeding. Alternative means of evaluation and treatment include, among others: physical exam, x-rays, and/or surgical intervention. The patient elects to proceed with this endoscopic procedure. medical equipment was checked for proper function. Hand hygiene and appropriate measures for infection prevention was taken. After the risks, benefits and alternatives of the procedure were thoroughly explained, Informed consent was verified, confirmed and timeout was successfully executed by the treatment team. A digital exam revealed no abnormalities of the rectum The Pentax [id number] endoscope was introduced through the anus and advanced to the cecum, which was identified by both the appendix and ileocecal valve. The instrument was then slowly withdrawn as the colon was fully examined. COLON FINDINGS: Some stool throughout the colon. No rectal or sigmoid mass. Small polyp in the rectum removed by snare. Most likely patient had decal impaction. Retroflexed views revealed no abnormalities The scope was then completely withdrawn from the patient and the procedure terminated. ADVERSE EVENTS: There were no complications. IMPRESSIONS: 1. Some stool throughout the colon 2. No rectal or sigmoid mass 3. Small polyp in the rectum removed by snare 4. Most likely patient had decal impaction 5. Retroflexed views revealed no abnormalities 6. Revealed no abnormalities of the rectum RECOMMENDATIONS: 1. Await biopsy results. Biopsy results will not be ready for 7-10 days. If you don't hear from us in two weeks, call our office for results. 2. Yearly hemoccult 3. High fiber diet RECALL: Return 1 year Colonoscopy Esthela Restrepo MD eSigned: Esthela Restrepo MD 07/26/2016 8:06 AM cc:
--- NOTE | 2016-07-26 08:10 | GIPROC ---
[facility] [address] [place] [address], [id number] EGD PROCEDURE REPORT EXAM DATE: 07/26/2016 PATIENT NAME: Clement Bhat MR #: [id number] BIRTHDATE: 1960 ATTENDING: Esthela Restrepo MD ORDER #: [id number] SCHEDULING ASSISTANT: Alexa Mart and Blayne Dumas STATUS: inpatient INDICATIONS: The patient is a 55 yr old female here for an EGD due to abdominal pain PROCEDURE PERFORMED: EGD w/ biopsy MEDICATIONS: None and Per Anesthesia. TOPICAL ANESTHETIC: none CONSENT: The patient understands the risks and benefits of the procedure and understands that these risks include, but are not limited to: sedation, allergic reaction, infection, perforation and/or bleeding. Alternative means of evaluation and treatment include, among others: physical exam, x-rays, and/or surgical intervention. The patient elects to proceed with this endoscopic procedure. medical equipment was checked for proper function. Hand hygiene and appropriate measures for infection prevention was taken. After the risks, benefits and alternatives of the procedure were thoroughly explained, Informed consent was verified, confirmed and timeout was successfully executed by the treatment team. The patient was anesthetized with topical anesthesia and the [id number] (Pedi C) endoscope was introduced through the mouth and advanced to the second portion of the duodenum. Retroflexed views revealed no abnormalities The gastroscope was then slowly withdrawn and removed. Mild duodenitis Bx from antrum to R/O H pylori. Mild esophagitis Bxdistal esophagus. ADVERSE EVENTS: There were no complications. IMPRESSIONS: 1. Mild duodenitis Bx from antrum to R/O H pylori 2. Mild esophagitis Bxdistal esophagus 3. Retroflexed views revealed no abnormalities RECOMMENDATIONS: 1. Await biopsy results. Biopsy results will not be ready for 7-10 days. If you don't hear from us in two weeks, call our office for biopsy results. 2. Anti-reflux regimen 3. Continue PPI 4. Avoid NSAIDS PATIENT CONDITION: stable DISPOSITION: Inpatient REPEAT EXAM: Return as needed for EGD Esthela Restrepo MD eSigned: Esthela Restrepo MD 07/26/2016 8:09 AM cc:
--- NOTE | 2016-07-26 08:16 | HHI.GIFU ---
Subjective Remarks feels ok, less abdominal pain, no nausea Objective Vitals I&O Vital Signs Date Time Temp Pulse Resp B/P Pulse Ox O2 Delivery O2 Flow Rate FiO2 07/26/16 06:44 98.3 53 16 152/77 98 07/26/16 00:54 96.5 50 16 165/85 97 07/25/16 21:23 98.7 61 18 157/93 97 07/25/16 16:19 96.0 57 20 148/79 100 07/25/16 12:00 96.0 61 20 125/80 99 I/O 07/25/16 07/25/16 07/25/16 07/26/16 07/26/16 07/26/16 07:00 15:00 23:00 07:00 15:00 23:00 Intake Total 1300 ml 1000 ml Balance 1300 ml 1000 ml Intake Oral 1300 ml Oral Supplement 1000 ml # Voids 3 7 2 # Bowel Movements 1 2 Physical Exam HEENT: Pupils round and reactive to light; normocephalic; atraumatic; no jaundice. Throat is clear. NECK: Neck is supple, no JVD, no lymphadenopathy. CHEST: Chest is clear to auscultation and percussion. CARDIAC: Regular rate and rhythm with no murmur gallop or rubs. ABDOMEN: Soft, nondistended, nontender; no hepatosplenomegaly; bowel sounds are present in all four quadrants. EXTREMITIES: No clubbing, cyanosis, or edema. SKIN: Normal; no rash; no jaundice. PRODUCT TESTER: No focal deficits; alert and oriented times three. Assessment and Plan Plan elevated LFTs, most likely ETOH, await labs, this can be followed as outpatient. abnormal CT scan Colonoscopy did not show a mass, most likely stool impaction, small polyp removed wt. loss, EGD is normal except mild esophagitis and duodenitis ok to feed patient, further W/U for Wt loss can be done by PCP as outpatient continue PPI No ETOH Esthela Restrepo MD Jul 26, 2016 08:16
[2016-07-26] MEDS ORDERED: PROPOFOL 200 MG/20 ML AMP IV ONE (08:29)
[2016-07-26] MEDS ORDERED: MECL-62 PO (08:59)
[2016-07-26] MEDS ORDERED: VITA100T2 PO (08:59)
[2016-07-26] MEDS ORDERED: FOLI1TAB4 PO (08:59)
[2016-07-26] MEDS ORDERED: CLON.5 PO (08:59)
[2016-07-26] MEDS ORDERED: THIAMINE HCL 100 MG TAB PO SCH (09:00)
[2016-07-26] MEDS ORDERED: RANI150T PO (09:07)
--- NOTE | 2016-07-26 09:08 | HHI.DS ---
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 Mild duodenitis Bx from antrum to R/O H pylori 2. Mild esophagitis Bxdistal esophagus 3. Retroflexed views revealed no abnormalities IMPRESSIONS: 1. Some stool throughout the colon 2. No rectal or sigmoid mass 3. Small polyp in the rectum removed by snare 4. Most likely patient had decal impaction 5. Retroflexed views revealed no abnormalities 6. Revealed no abnormalities of the rectum Brief History - From Admission Ms. Bhat is a 55 year old female with a history of alcoholism who presented to the ED on 07/22/2016 for evaluation of joint pains and aches. She also requested alcohol detox. She tried to detox on her own but had trouble dealing with withdrawal symptoms. So she started drinking again. She reports room spinning sensation whenever she moves her head. However, slow movement of her head does not cause much symptoms. She also expressed suicidal ideations. Initial alcohol level was 334. ED workup included CT abdomen pelvis which showed possible fecaloma in the cecum however a mass was difficult to exclude. Patient was subsequently admitted to the hospital for observation. Patient denies any chest pain, SOB, fever, chills. No changes in bowel or bladder habits. CBC/BMP: 07/23/16 0500 07/23/16 0500 Imaging Last Impressions Hand X-Ray 07/23/16 0000 Signed Impressions: Service Date/Time: Saturday, July 23, 2016 17:13 - CONCLUSION: Unremarkable study. Leyla Renteria MD Abdomen/Pelvis CT 07/22/16 1722 Signed Impressions: Service Date/Time: July 17:56 - CONCLUSION: Possible fecaloma in the cecum, however a mass is difficult to exclude and may consider nonemergent colonoscopy based on clinical grounds. Leyla Renteria MD Chest X-Ray 07/22/16 0000 Signed Impressions: Service Date/Time: July 17:52 - CONCLUSION: No acute cardiopulmonary disease. Leyla Renteria MD PE at Discharge GENERAL: AOX3, NAD. SKIN: Warm and dry. HEAD: Normocephalic. EYES: No scleral icterus. No injection or drainage. NECK: Supple, trachea midline. No JVD or lymphadenopathy. CARDIOVASCULAR: Regular rate and rhythm without murmurs, gallops, or rubs. RESPIRATORY: Breath sounds equal bilaterally. No accessory muscle use. GASTROINTESTINAL: Abdomen soft, non-tender, nondistended. MUSCULOSKELETAL: No cyanosis, or edema. BACK: Nontender without obvious deformity. No CVA tenderness. Pt update on day of discharge Patient is doing well. No acute concerns. She underwent EGD/Colonoscopy this morning. No significant findings on EGD/Colonoscopy. Hospital Course Ms. Bhat is a 55-year-old female who presented to the hospital on 07/22/2016 due to joint pain and aches. She also requested alcohol detox. CT abdomen pelvis was done due to abdominal pain. Imaging studies shows fecaloma in the cecum - however a mass could not be excluded. Gastroenterology was consulted who recommended EGD/Colonoscopy. EGD/Colonoscopy were done on 07/26/2016 and showed no significant findings. Doing the hospitalization patient was given supportive care with CIWA protocol, Librium, multivitamins and thiamine. Meclizine was continued for vertigo. Patient remained hemodynamically stable. After GI procedures patient was discharged home with outpatient follow-up with her PCP. Pt Condition on Discharge: Good Discharge Disposition: Discharge Home Discharge Time: > 30 minutes Discharge Instructions DIET: Follow Instructions for: As Tolerated, No Restrictions Activities you can perform: Regular-No Restrictions Follow up Referrals: PCP Follow-up - 1 Week New Medications: Folic Acid (Folate) 1 Mg Tab 1 MG PO DAILY Nutritional Supplement #30 Ref 0 TAB Ranitidine (Ranitidine) 150 Mg Tab 150 MG PO DAILY Heartburn Management #30 Ref 0 TAB Clonazepam (Klonopin) 0.5 Mg Tab 0.5 MG PO Q8HR PRN Anxiety #21 TAB Meclizine (Meclizine) 25 Mg Tab 25 MG PO Q8HR Vertigo #90 TAB Thiamine (Vitamin B-1) 100 Mg Tab 100 MG PO DAILY vitamin #30 TAB Kameron Bell DO Jul 26, 2016 9:08 am
[2016-07-26] MEDS: SODIUM CHLORIDE 0.9% FLUSH 10 ML FLUSH IV FLUSH SCH (10:22)
[2016-07-26 12:00] VITALS: BP 160/72; PULSE 73; RESP 16; TEMP 98.1; O2SAT 99
--- NOTE | 2016-07-26 14:18 | EKG ---
Date Performed: 07/26/2016 Time Performed: 05:55:06 PTAGE: 55 years EKG: Sinus bradycardia with sinus arrhythmia Normal ECG except for rate NO PREVIOUS TRACING DOCTOR: Robbie Patterson Interpretating Date/Time 07/26/2016 14:17:16
== END 2016-07-26 12:43 | disposition home or self-care (01) ==
LOC: PHED 17:01 → PHEDA 19:39 → PHICU 07-23 00:45 → PH3B 07-23 17:18
PROVIDERS: ADMIT Hospitalist; ATTEND Hospitalist
DX: F10.229 Alcohol dependence with intoxication, unspecified (principal); Y90.8 Blood alcohol level of 240 mg/100 ml or more; K56.41 Fecal impaction; K62.1 Rectal polyp; K20.9 Esophagitis, unspecified; K29.50 Unspecified chronic gastritis without bleeding; R30.0 Dysuria; F17.210 Nicotine dependence, cigarettes, uncomplicated; R63.4 Abnormal weight loss; E86.0 Dehydration; Z80.1 Family history of malignant neoplasm of trachea, bronchus and lung; Z59.0 Homelessness
CPT/HCPCS: 00810; 43239; 45385; 71010; 73120; 74176; 80053; 80074; 80307; 81001; 82948; 85025; 85610; 85730; 88305; 88312; 93005; 96360; 96361; 99285; G0378; J1650; J2060; J3411; J7030; J7040; 88304

== ENCOUNTER 2016-11-26 11:29 | Observation (INO) | payer SELFPAY ==
[2016-11-26] VITALS (8 sets, daily range): BP systolic 110–138; BP diastolic 51–83; PULSE 78–99; RESP 16–18; TEMP 98.2–99.6; O2SAT 93–98
[~2016-11-26] VITALS: Ht 167.6 cm; Wt 55.3 kg
[~2016-11-26 11:29] MED LIST changes: +CLON.5 PO; +FOLI1TAB4 PO; -LORTA10 PO; +MECL-62 PO; +RANI150T PO; +VITA100T2 PO
[2016-11-26] MEDS ORDERED: ACETAMINOPHEN/HYDROcodone 325 MG/5 MG TAB PO ONE (11:45)
--- NOTE | 2016-11-26 12:02 | PD ---
HPI Chief Complaint: Musculoskeletal Complaint Time Seen by Provider: 11:40 Travel History International Travel<30 days: No Contact w/Intl Traveler<30days: No Traveled to known affect area: No History of Present Illness HPI The patient is 55 years old. She arrives complaining of pain in the region of the right clavicle and right shoulder. She also has chest tightness. She reports 3 episodes of loss of consciousness yesterday. Evidently each time she slid down against the wall of the shower each time she recalls. At the time of initial evaluation her main complaint is clavicle pain on the right side, evidently severe. Generally the right clavicle feels larger as if protruding somewhat towards the medial end. The right shoulder is painful. It's worse with passive or active range of motion. She states the pain is 10 over 10. Normally it is 5/10. PFSH Past Medical History Diminished Hearing: No Tetanus Vaccination: Unknown ?: Not : 5 Para: 1 Miscarriage: 2 : 2 Ovarian Cysts: Yes Past Surgical History Appendectomy: Yes Social History Alcohol Use: Yes (1 [place] DAILY) Tobacco Use: Yes (1/2 PPD) Substance Use: No Allergies-Medications (Allergen,Severity, Reaction): Coded Allergies: No Known Allergies (Unverified , 11/26/16) Reported Meds & Prescriptions Reported Meds & Active Scripts Active Tramadol (Tramadol HCl) 50 Mg Tab 100 Mg PO Q6H PRN Review of Systems Except as stated in HPI: all other systems reviewed are Neg General / Constitutional: No: Fever Cardiovascular: Positive: Chest Pain or Discomfort Physical Exam Narrative GENERAL: Pleasant 55-year-old female well-nourished well-developed SKIN: Warm and dry. HEAD: Atraumatic. Normocephalic. EYES: Pupils equal and round. No scleral icterus. No injection or drainage. ENT: No nasal bleeding or discharge. Mucous membranes pink and moist. NECK: Trachea midline. No JVD. CARDIOVASCULAR: Regular rate and rhythm. RESPIRATORY: No accessory muscle use. Clear to auscultation. Breath sounds equal bilaterally. GASTROINTESTINAL: Abdomen soft, non-tender, nondistended. Hepatic and splenic margins not palpable. MUSCULOSKELETAL: Extremities without clubbing, cyanosis, or edema. No obvious deformities. The region of the right clavicle is nontender without erythema induration or warmth. Passive range of motion at the right shoulder is normal 2 + radial artery pulse bilaterally. No ecchymosis or deformity region of the right clavicle or right shoulder. NEUROLOGICAL: Awake and alert. No obvious cranial nerve deficits. Motor grossly within normal limits. Five out of 5 muscle strength in the arms and legs. Normal speech. PSYCHIATRIC: Appropriate mood and affect; insight and judgment normal. Data Data Last Documented VS Vital Signs Date Time Temp Pulse Resp B/P (MAP) Pulse Ox O2 Delivery O2 Flow Rate FiO2 11/26/16 11:44 99.6 99 16 112/56 (74) 95 Vital signs reviewed Orders Orders Clavicle (11/26/16 11:44) Shoulder, Complete (>2vws) (11/26/16 11:44) Ice/Cold Pack (11/26/16 11:44) Chest, Single Ap (11/26/16 11:44) Acetamin-Hydrocod 325-5 Mg ([place] 5-325 (11/26/16 11:45) Electrocardiogram (11/26/16 12:02) Basic Metabolic Panel (Bmp) (11/26/16 12:02) Complete Blood Count With Diff (11/26/16 12:02) Magnesium (Mg) (11/26/16 12:02) Troponin I (11/26/16 12:02) Ecg Monitoring (11/26/16 12:02) Iv Access Insert/Monitor (11/26/16 12:02) Oximetry (11/26/16 12:02) Oxygen Administration (11/26/16 12:02) Sodium Chloride 0.9% Flush (Ns Flush) (11/26/16 12:15) Alcohol (Ethanol) (11/26/16 12:02) Admit Order (Ed Use Only) (11/26/16 13:42) Labs Laboratory Tests Test 11/26/16 12:35 White Blood Count 9.5 TH/MM3 Red Blood Count 3.81 MIL/MM3 Hemoglobin 12.8 GM/DL Hematocrit 36.7 % Mean Corpuscular Volume 96.5 FL Mean Corpuscular Hemoglobin 33.6 PG Mean Corpuscular Hemoglobin Concent 34.8 % Red Cell Distribution Width 14.6 % Platelet Count 303 TH/MM3 Mean Platelet Volume 7.3 FL Neutrophils (%) (Auto) 56.5 % Lymphocytes (%) (Auto) 34.3 % Monocytes (%) (Auto) 4.4 % Eosinophils (%) (Auto) 0.8 % Basophils (%) (Auto) 4.0 % Neutrophils # (Auto) 5.4 TH/MM3 Lymphocytes # (Auto) 3.2 TH/MM3 Monocytes # (Auto) 0.4 TH/MM3 Eosinophils # (Auto) 0.1 TH/MM3 Basophils # (Auto) 0.4 TH/MM3 CBC Comment DIFF FINAL Differential Comment Blood Urea Nitrogen 23 MG/DL Creatinine 0.86 MG/DL Random Glucose 170 MG/DL Calcium Level 8.7 MG/DL Magnesium Level 2.5 MG/DL Sodium Level 139 MEQ/L Potassium Level 3.4 MEQ/L Chloride Level 101 MEQ/L Carbon Dioxide Level 24.4 MEQ/L Anion Gap 14 MEQ/L Estimat Glomerular Filtration Rate 68 ML/MIN Troponin I 0.02 NG/ML Ethyl Alcohol Level 212 MG/DL MDM Medical Decision Making Medical Screen Exam Complete: Yes Emergency Medical Condition: Yes Medical Record Reviewed: Yes Differential Diagnosis Clavicle injury, costochondritis, acromioclavicular dislocation, shoulder fracture, arthritis Narrative Course CBC & BMP Diagram 11/26/16 12:35 Calcium Level 8.7, Magnesium Level 2.5 Last 24 hours Impressions Shoulder X-Ray 11/26/16 1144 Signed Impressions: Service Date/Time: Saturday, November 26, 2016 12:19 - CONCLUSION: No acute right shoulder abnormality is identified. There is acromioclavicular joint osteoarthritis. Rik Claudio MD Clavicle X-Ray 11/26/16 1144 Signed Impressions: Service Date/Time: Saturday, November 26, 2016 12:14 - CONCLUSION: Acromioclavicular joint osteoarthritis with overlying soft tissue swelling. No acute finding is identified. Rik Claudio MD Chest X-Ray 11/26/16 1144 Signed Impressions: Service Date/Time: Saturday, November 26, 2016 12:08 - CONCLUSION: No acute disease. Bulmaro Chacon Jr., MD Tn 0.02 EKG sinus, no ST elevations, no deep TWI d/w Dr Bliss, [facility] protocol Diagnosis Primary Impression: Chest tightness Additional Impression: Alcohol intoxication Qualified Codes: F10.929 - Alcohol use, unspecified with intoxication, unspecified Parmjit Roche MD Nov 26, 2016 12:02
[2016-11-26] MEDS ORDERED: TRAM50TA PO (12:12)
[2016-11-26] MEDS ORDERED: SODIUM CHLORIDE 0.9% FLUSH 10 ML FLUSH IVF PRN (12:15)
--- NOTE | 2016-11-26 12:20 | RADRPT ---
EXAM DATE/TIME: 11/26/2016 12:08 [facility] COMPARISON: CHEST SINGLE AP, July 22, 2016, 17:52. INDICATIONS : Short of breath MEDICAL HISTORY : None. SURGICAL HISTORY : None. ENCOUNTER: Initial ACUITY: 2 days PAIN SCORE: 0/10 LOCATION: Bilateral chest FINDINGS: A single view of the chest demonstrates the lungs to be symmetrically aerated without evidence of mas s, infiltrate or effusion. The cardiomediastinal contours are unremarkable. Osseous structures are intact. CONCLUSION: No acute disease. Bulmaro Chacon Jr., MD on November 26, 2016 at 12:18 Board Certified Radiologist. This report was verified electronically.
--- NOTE | 2016-11-26 12:34 | RADRPT ---
EXAM DATE/TIME: 11/26/2016 12:14 [facility] COMPARISON: No previous studies available for comparison. INDICATIONS : Right shoulder pain after falling MEDICAL HISTORY : None. SURGICAL HISTORY : None. ENCOUNTER: Initial ACUITY: 2 days PAIN SCORE: 10/10 LOCATION: Right clavicle FINDINGS: 2 views of the right clavicle demonstrate no fracture or dislocation. Acromioclavicular joint is inta ct with osteoarthritis. There is mineralization at the rotator cuff insertion site adjacent to the hu meral head. Mild soft tissue swelling is present superficial to the acromioclavicular joint. CONCLUSION: Acromioclavicular joint osteoarthritis with overlying soft tissue swelling. No acute finding is ident ified. Rik Claudio MD on November 26, 2016 at 12:32 Board Certified Radiologist. This report was verified electronically.
--- NOTE | 2016-11-26 12:37 | RADRPT ---
EXAM DATE/TIME: 11/26/2016 12:19 [facility] COMPARISON: No previous studies available for comparison. INDICATIONS : Right shoulder pain with right arm numbness after falling MEDICAL HISTORY : None. SURGICAL HISTORY : None. ENCOUNTER: Initial ACUITY: 2 days PAIN SCORE: 10/10 LOCATION: Right entire shoulder FINDINGS: 4 views of the right shoulder demonstrate no fracture or dislocation. The acromioclavicular joint is intact but demonstrates moderate osteoarthritis. There is mineralization in the soft tissues adjacent to the greater tuberosity. The visualized soft tissues demonstrate no abnormality. Visualized portions of the right lung are clear. No displaced rib fracture is seen. CONCLUSION: No acute right shoulder abnormality is identified. There is acromioclavicular joint osteoarthritis. Rik Claudio MD on November 26, 2016 at 12:34 Board Certified Radiologist. This report was verified electronically.
[2016-11-26 12:45] LABS: AUTOMATED NEUTROPHIL # 5.4 TH/MM3 (1.8-7.7); BASOPHIL # 0.4 TH/MM3 (0-0.2); EOSINOPHIL # 0.1 TH/MM3 (0-0.4); EOSINOPHIL % 0.8 % (0.0-4.0); HEMATOCRIT 36.7 % (35.0-46.0); LYMPH % 34.3 % (9.0-44.0); LYMPHOCYTE # 3.2 TH/MM3 (1.0-4.8); MEAN CELL VOLUME 96.5 FL (80.0-100.0); MEAN CORPUSCULAR HEMOGLOBIN 33.6 PG (27.0-34.0); MEAN CORPUSCULAR HGB CONC 34.8 % (32.0-36.0); MONO % 4.4 % (0.0-8.0); NEUT % 56.5 % (16.0-70.0); PLATELET COUNT 303 TH/MM3 (150-450); RED BLOOD COUNT 3.81 MIL/MM3 (4.00-5.30); RED CELL DISTRIBUTION WIDTH 14.6 % (11.6-17.2); WHITE BLOOD COUNT 9.5 TH/MM3 (4.0-11.0)
[2016-11-26 12:51] LABS: HEMO FLAGS DIFF FINAL
[2016-11-26 12:54] LABS: POTASSIUM 3.4 MEQ/L (3.5-5.1)
[2016-11-26 12:57] LABS: BICARBONATE 24.4 MEQ/L (21.0-32.0); MAGNESIUM 2.5 MG/DL (1.5-2.5)
[2016-11-26] MEDS ORDERED: ONDANSETRON HCL 4 MG/2 ML VIAL IV PRN (13:45)
[2016-11-26] MEDS ORDERED: ACETAMINOPHEN 500 MG CPLT PO PRN (13:45)
[2016-11-26] MEDS ORDERED: SODIUM CHLORIDE 0.9% FLUSH 10 ML FLUSH IV FLUSH PRN (13:45)
[2016-11-26] MEDS ORDERED: NITROGLYCERIN 0.4 MG SL 25 TABS/BTL SL PRN (13:45)
[2016-11-26] MEDS ORDERED: MORPHINE SULFATE 4 MG/ML INJ IV PRN (13:45)
[2016-11-26] MEDS ORDERED: NALOXONE HCL 0.4 MG/ML AMP IV PRN (14:00)
[2016-11-26] MEDS ORDERED: HALOPERIDOL LACTATE 5 MG/ML AMP IM PRN (14:00)
[2016-11-26] MEDS ORDERED: LORazepam 1 MG TAB PO PRN (14:00)
[2016-11-26] MEDS ORDERED: LORazepam 2 MG TAB PO PRN (14:00)
[2016-11-26] MEDS ORDERED: BISACODYL 10 MG SUPP RECTAL PRN (14:00)
[2016-11-26] MEDS ORDERED: FLUMAZENIL 0.5 MG/5 ML VIAL IV PUSH PRN (14:00)
[2016-11-26] MEDS ORDERED: ACETAMINOPHEN 325 MG TAB PO PRN (14:00)
[2016-11-26] MEDS ORDERED: LORazepam 2 MG/ML VIAL IV PUSH PRN ×4 (14:00)
[2016-11-26] MEDS ORDERED: LACTULOSE SYRUP 20 GM/30 ML CUP PO PRN (14:00)
[2016-11-26] MEDS ORDERED: SENNOSIDES 8.6 MG TAB PO PRN (14:00)
[2016-11-26] MEDS ORDERED: MAGNESIUM HYDROXIDE SUSP 30 ML CUP PO PRN (14:00)
[2016-11-26] MEDS: ASPIRIN 325 MG TAB PO SCH (14:02)
[2016-11-26] MEDS ORDERED: POTASSIUM CHLORIDE 10 MEQ CONTROLLED RELEASE TAB PO ONE (15:00)
[2016-11-26 15:20] LABS: CKMB 5.3 NG/ML (0.5-3.6)
[2016-11-26] MEDS ORDERED: RESP: ALBUTEROL 2.5 MG/3 ML NEB (PRN) NEB (17:30)
--- NOTE | 2016-11-26 17:43 | HHI.HP ---
HPI Service [facility] Primary Care Physician No Primary Care Physician Admission Diagnosis Chest Tightness, R Shoulder/Clavicle Pain, EtOH Intox Diagnoses: Chief Complaint: Chest tightness Travel History International Travel<30 Days: No Contact w/Intl Traveler <30 Da: No Traveled to Known Affected Are: No History of Present Illness This is a 55-year-old female with history of chronic right clavicle pain, tobacco and alcohol abuse. States he has chronic right clavicle pain worse when she's working involving her right upper extremity. No history of trauma. She complains of constant chest tightness for the last 48 hours. It is not pleuritic. No radiation of pain, nausea, palpitations, diaphoresis, dizziness and shortness of breath. No history of CAD, DVT, PE, leg pain, swelling and recent immobilization. She has chronic nonproductive cough. She also reports of syncope yesterday while at work. States she was standing and vision just turned black for a few seconds. She then sat down on the floor denies fall and injuries. This happened 3 times. Today she just didn't feel well prompting ER visit. All other systems reviewed negative Review of Systems Except as stated in HPI: all other systems reviewed are Neg Past Family Social History Past Medical History As previously mentioned Past Surgical History Appendectomy Reported Medications Takes [id number] Tylenol Allergies: Coded Allergies: No Known Allergies (Unverified , 11/26/16) Family History Heart disease Social History Drinks alcohol but not on a daily basis. Denies having alcohol today even though level is 212. Smokes half a pack per day Physical Exam Vital Signs Vital Signs Date Time Temp Pulse Resp B/P (MAP) Pulse Ox O2 Delivery O2 Flow Rate FiO2 11/26/16 16:48 90 16 121/69 (86) 95 11/26/16 16:45 98 11/26/16 16:45 98 11/26/16 13:58 94 16 110/51 (70) 95 Room Air 11/26/16 11:44 99.6 99 16 112/56 (74) 95 Physical Exam GENERAL: This is a well-nourished, well-developed patient, in no apparent distress. SKIN: No rashes, ecchymoses or lesions. Cool and dry. HEAD: Atraumatic. Normocephalic. No temporal or scalp tenderness. EYES: Pupils equal round and reactive. Extraocular motions intact. No scleral icterus. No injection or drainage. ENT: Nose without bleeding, purulent drainage or septal hematoma. Throat without erythema, tonsillar hypertrophy or exudate. Uvula midline. Airway patent. NECK: Trachea midline. No JVD or lymphadenopathy. Supple, nontender, no meningeal signs. CARDIOVASCULAR: Regular rate and rhythm without murmurs, gallops, or rubs. RESPIRATORY: Clear to auscultation. Decreased Breath sounds equal bilaterally. No wheezes, rales, or rhonchi. Mild chest wall tenderness GASTROINTESTINAL: Abdomen soft, non-tender, nondistended. No guarding. MUSCULOSKELETAL: Extremities without clubbing, cyanosis, or edema. No joint tenderness, effusion, or edema noted. No calf tenderness. Negative Homans sign bilaterally. NEUROLOGICAL: Awake and alert. Cranial nerves II through XII intact. Motor and sensory grossly within normal limits. Five out of 5 muscle strength in all muscle groups. Normal speech. Laboratory Laboratory Tests Test 11/26/16 12:35 11/26/16 14:43 White Blood Count 9.5 Red Blood Count 3.81 Hemoglobin 12.8 Hematocrit 36.7 Mean Corpuscular Volume 96.5 Mean Corpuscular Hemoglobin 33.6 Mean Corpuscular Hemoglobin Concent 34.8 Red Cell Distribution Width 14.6 Platelet Count 303 Mean Platelet Volume 7.3 Neutrophils (%) (Auto) 56.5 Lymphocytes (%) (Auto) 34.3 Monocytes (%) (Auto) 4.4 Eosinophils (%) (Auto) 0.8 Basophils (%) (Auto) 4.0 Neutrophils # (Auto) 5.4 Lymphocytes # (Auto) 3.2 Monocytes # (Auto) 0.4 Eosinophils # (Auto) 0.1 Basophils # (Auto) 0.4 CBC Comment DIFF FINAL Differential Comment Blood Urea Nitrogen 23 Creatinine 0.86 Random Glucose 170 Calcium Level 8.7 Magnesium Level 2.5 Sodium Level 139 Potassium Level 3.4 Chloride Level 101 Carbon Dioxide Level 24.4 Anion Gap 14 Estimat Glomerular Filtration Rate 68 Troponin I 0.02 0.02 Ethyl Alcohol Level 212 Total Creatine Kinase 258 Creatine Kinase MB 5.3 Creatine Kinase MB % 2.1 Result Diagram: 11/26/16 1235 11/26/16 1235 Imaging EKG tracing #1 interpreted by me with sinus tachycardia nonspecific ST changes EKG #2 with sinus rhythm Chest x-ray image interpreted by me with no acute cardiopulmonary disease Last Impressions Shoulder X-Ray 11/26/16 1144 Signed Impressions: Service Date/Time: Saturday, November 26, 2016 12:19 - CONCLUSION: No acute right shoulder abnormality is identified. There is acromioclavicular joint osteoarthritis. Rik Claudio MD Clavicle X-Ray 11/26/16 1144 Signed Impressions: Service Date/Time: Saturday, November 26, 2016 12:14 - CONCLUSION: Acromioclavicular joint osteoarthritis with overlying soft tissue swelling. No acute finding is identified. Rik Claudio MD Chest X-Ray 11/26/16 1144 Signed Impressions: Service Date/Time: Saturday, November 26, 2016 12:08 - CONCLUSION: No acute disease. MD Hasmukh Isbell Jr. VTE Risk Assessment Capchristyi VTE Risk Assessment: No/Low Risk (score <= 1) Caprini Risk Assessment Model Point Value = 1 Point Value = 2 Point Value = 3 Point Value = 5 Age 41-60 Minor surgery BMI > 25 kg/m2 Swollen legs Varicose veins or History of unexplained or recurrent spontaneous Oral contraceptives or hormone replacement Sepsis (< 1 month) Serious lung disease, including pneumonia (< 1 month) Abnormal pulmonary function Acute myocardial infarction Congestive heart failure (< 1 month) History of inflammatory bowel disease Medical patient at bed rest Age 61-74 Arthroscopic surgery Major open surgery (> 45 min) Laparoscopic surgery (> 45 min) Malignancy Confined to bed (> 72 hours) Immobilizing plaster cast Central venous access Age >= 75 History of VTE Family history of VTE Factor V Leiden Prothrombin [id number] Lupus anticoagulant Anticardiolipin antibodies Elevated serum homocysteine Heparin-induced thrombocytopenia Other congenital or acquired thrombophilia Stroke (< 1 month) Elective arthroplasty Hip, pelvis, or leg fracture Acute spinal cord injury (< 1 month) Prophylaxis Regimen Total Risk Factor Score Risk Level Prophylaxis Regimen 0-1 Low Early ambulation 2 Moderate Order ONE of the following: *Sequential Compression Device (SCD) *Heparin 5000 units SQ BID 3-4 Higher Order ONE of the following medications: *Heparin 5000 units SQ TID *Enoxaparin/Lovenox 40 mg SQ daily (WT < 150 kg, CrCl > 30 mL/min) *Enoxaparin/Lovenox 30 mg SQ daily (WT < 150 kg, CrCl > 10-29 mL/min) *Enoxaparin/Lovenox 30 mg SQ BID (WT < 150 kg, CrCl > 30 mL/min) AND/OR *Sequential Compression Device (SCD) 5 or more Highest Order ONE of the following medications: *Heparin 5000 units SQ TID (Preferred with Epidurals) *Enoxaparin/Lovenox 40 mg SQ daily (WT < 150 kg, CrCl > 30 mL/min) *Enoxaparin/Lovenox 30 mg SQ daily (WT < 150 kg, CrCl > 10-29 mL/min) *Enoxaparin/Lovenox 30 mg SQ BID (WT < 150 kg, CrCl > 30 mL/min) AND *Sequential Compression Device (SCD) Assessment and Plan Problem List: (1) Chest tightness ICD Code: R07.89 - Other chest pain Assessment and Plan This is a 55-year-old female with history of chronic right clavicle pain, tobacco and alcohol abuse. She presents with chest tightness for the last 48 hours. ER M.D. recommended hospitalization for chest pain rule out [place] protocol Chest tightness with multiple risk factors for CAD including tobacco abuse and family history. Initial cardiac enzymes and EKG unremarkable. Trend cardiac enzymes. If she rules out for [place] will perform Lexiscan. Start aspirin. Tobacco cessation. This could be secondary to COPD. Start nebulization. Low suspicion for PE. Syncope likely vasovagal. She is neurologically intact. Orthostatic vital signs Hypokalemia likely related to alcoholism. Replace with 30 mEq By mouth potassium Alcohol abuse. Counseled. CIWA protocol Low risk for DVT Discussed Condition With Patient Jurgen Bliss MD Nov 26, 2016 17:43
[2016-11-26] MEDS ORDERED: PILL SPLITTER OTHER PRN (17:45)
[2016-11-26] MEDS ORDERED: RESP: ALBUTEROL 2.5 MG/3 ML NEB (SCH) NEB ONE (18:00)
[2016-11-26] MEDS: IBUPROFEN 400 MG TAB PO SCH (18:00)
[2016-11-26 19:03] LABS: CKMB 4.8 NG/ML (0.5-3.6)
[2016-11-26] MEDS: FAMOTIDINE 20 MG TAB PO SCH (20:39)
[2016-11-26] MEDS: DOCUSATE SODIUM 50 MG/SENNA 8.6 MG TAB PO SCH (20:39)
[2016-11-26] MEDS: SODIUM CHLORIDE 0.9% FLUSH 10 ML FLUSH IV FLUSH SCH (20:40)
[2016-11-26] MEDS: ACETAMINOPHEN/HYDROcodone 325 MG/7.5 MG TAB PO PRN (21:46)
[2016-11-27] VITALS (12 sets, daily range): BP systolic 135–172; BP diastolic 78–84; PULSE 58–82; RESP 18–20; TEMP 96.5–98.7; O2SAT 96–98
[2016-11-27] MEDS: IBUPROFEN 400 MG TAB PO SCH ×4 (06:41→18:00)
[2016-11-27] MEDS: ASPIRIN 325 MG TAB PO SCH (08:25)
[2016-11-27] MEDS: FOLIC ACID 1 MG TAB PO SCH (08:25)
[2016-11-27] MEDS: MULTIVITAMINS/MINERALS THERAPEUTIC TAB PO SCH (08:25)
[2016-11-27] MEDS: THIAMINE HCL 100 MG TAB PO SCH (08:25)
[2016-11-27] MEDS: FAMOTIDINE 20 MG TAB PO SCH ×2 (09:00→21:59)
[2016-11-27] MEDS: SODIUM CHLORIDE 0.9% FLUSH 10 ML FLUSH IV FLUSH SCH ×2 (09:00→22:00)
[2016-11-27] MEDS: DOCUSATE SODIUM 50 MG/SENNA 8.6 MG TAB PO SCH ×2 (09:00→21:59)
[2016-11-27] MEDS ORDERED: REGADENOSON INJ 0.4 MG/5 ML SYR IV ONE (10:43)
--- NOTE | 2016-11-27 11:44 | RADRPT ---
EXAM DATE/TIME: 11/27/2016 09:33 [facility] COMPARISON: No previous studies available for comparison. INDICATIONS : Chest pain with syncope episode. Angina. DOSE: 27.5 mCi Tc99m Myoview at stress. 8.4 mCi Tc99m Myoview at rest. 0.4 mg Lexiscan STRESS SYMPTOMS: Nausea and heart racing. EJECTION FRACTION: 62% MEDICAL HISTORY : ETOH abuse. Smoker. SURGICAL HISTORY : Appendectomy. ENCOUNTER: Initial ACUITY: 1 day PAIN SCALE: 0/10 LOCATION: Right chest TECHNIQUE: The patient underwent pharmacologic stress with infusion of prescribed dose. Continuous ECG tracing was monitored during stress. Gated SPECT imaging was performed after stress and conventional SPECT i maging was performed at rest. The examination was performed on a SPECT/CT scanner, both attenuation and non-corrected datasets were reviewed. FINDINGS: DISTRIBUTION: The maximum perfused segment at stress is in the anterior wall. PERFUSION STUDY: Small fixed perfusion defect seen at the apex. A small reversible perfusion deficit is seen of the la teral wall. GATED STUDY: There is intact wall motion and thickening without hypokinetic or dyskinetic segments. 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 Very small focus of mild stress-induced ischemia in the latera l wall. Normal wall motion. RISK CATEGORY: Low to medium Rik Kunz MD on November 27, 2016 at 11:39 Board Certified Radiologist. This report was verified electronically.
--- NOTE | 2016-11-27 12:22 | HHI.PR ---
Subjective Remarks Follow-up chest tightness. Improving chest discomfort. Denies radiation and associated signs and symptoms. Also improving cough. Discussed with RN Objective Vitals Vital Signs Date Time Temp Pulse Resp B/P (MAP) Pulse Ox O2 Delivery O2 Flow Rate FiO2 11/27/16 08:00 97.0 58 20 162/78 (106) 97 11/27/16 07:41 20 11/27/16 04:00 97.7 78 18 172/79 (110) 98 11/27/16 00:00 98.2 75 18 162/80 (107) 98 11/26/16 23:12 78 11/26/16 20:45 94 21 11/26/16 20:00 98.2 85 18 138/83 (101) 95 11/26/16 17:43 93 21 11/26/16 16:48 90 16 121/69 (86) 95 11/26/16 16:45 98 11/26/16 16:45 98 11/26/16 13:58 94 16 110/51 (70) 95 Room Air I/O 11/26/16 11/26/16 11/26/16 11/27/16 11/27/16 11/27/16 07:00 15:00 23:00 07:00 15:00 23:00 Intake Total 125 ml 0 ml Balance 125 ml 0 ml Intake Oral 125 ml 0 ml Result Diagram: 11/26/16 1235 11/26/16 1235 Imaging Last Impressions Myocardial Perfusion Scan Nuc Med 11/27/16 0600 Signed Impressions: Service Date/Time: Sunday, November 27, 2016 09:33 - CONCLUSION: An apparent small, 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 Very small focus of mild stress-induced ischemia in the lateral wall. Normal wall motion. RISK CATEGORY: Low to medium Rik Kunz MD Shoulder X-Ray 11/26/16 1144 Signed Impressions: Service Date/Time: Saturday, November 26, 2016 12:19 - CONCLUSION: No acute right shoulder abnormality is identified. There is acromioclavicular joint osteoarthritis. Rik Claudio MD Clavicle X-Ray 11/26/16 1144 Signed Impressions: Service Date/Time: Saturday, November 26, 2016 12:14 - CONCLUSION: Acromioclavicular joint osteoarthritis with overlying soft tissue swelling. No acute finding is identified. Rik Claudio MD Chest X-Ray 11/26/16 1144 Signed Impressions: Service Date/Time: Saturday, November 26, 2016 12:08 - CONCLUSION: No acute disease. Bulmaro Chacon Jr., MD Objective Remarks Well-developed, well-nourished in no distress Skin is warm nor rashes Exam expansion clear to auscultation decreased breath sounds with mild chest wall tenderness Regular rate and rhythm Abdomen soft nontender Extremities no edema no cyanosis Alert and oriented nonfocal Procedures Non- A/P Problem List: (1) Chest tightness ICD Code: R07.89 - Other chest pain Assessment and Plan This is a 55-year-old female with history of chronic right clavicle pain, tobacco and alcohol abuse. She presents with chest tightness for the last 48 hours. ER M.D. recommended hospitalization for chest pain rule out [place] protocol Chest tightness with multiple risk factors for CAD including tobacco abuse and family history. Patient ruled out for [place] however Lexiscan is abnormal with follow results small old apical infarct and very small focus of mild stress- induced ischemia in the lateral wall. Continue aspirin and start Nitropaste and Lopressor. Tobacco cessation. Consult cardiology Syncope likely vasovagal. She is neurologically intact. Orthostatic vital signs Hypokalemia likely related to alcoholism. Replace with 30 mEq By mouth potassium Alcohol abuse. Counseled. CIWA protocol. Monitor for DT Low risk for DVT. Patient ambulatory Discharge Planning Await cardiology consult Jurgen Bliss MD Nov 27, 2016 12:22
[2016-11-27] MEDS: NITROGLYCERIN 2% OINT 1 GM PACKET TOPICAL SCH ×2 (13:39→21:59)
--- NOTE | 2016-11-27 18:29 | EKG ---
Date Performed: 11/26/2016 Time Performed: 18:17:04 PTAGE: 55 years EKG: \Sinus rhythm NORMAL ECG PREVIOUS TRACING : 11/26/2016 14.45 Compared to prior tracing no significant change DOCTOR: Brittany Christianson Interpretating Date/Time 11/27/2016 18:28:21
--- NOTE | 2016-11-27 18:37 | EKG ---
Date Performed: 11/26/2016 Time Performed: 14:45:45 PTAGE: 55 years EKG: Sinus rhythm NORMAL ECG PREVIOUS TRACING : 11/26/2016 11.39 Compared to prior tracing no significant change DOCTOR: Brittany Christianson Interpretating Date/Time 11/27/2016 18:35:58
--- NOTE | 2016-11-27 18:48 | EKG ---
Date Performed: 11/26/2016 Time Performed: 11:39:14 PTAGE: 55 years EKG: SINUS TACHYCARDIA POSSIBLE LEFT ATRIAL ENLARGEMENT NONSPECIFIC ST & T-WAVE ABNORMALITY ABNO RMAL RHYTHM ECG PREVIOUS TRACING : 07/26/2016 05.55 Compared to prior tracing no significant change DOCTOR: Brittany Christianson Interpretating Date/Time 11/27/2016 18:47:02
[2016-11-27] MEDS ORDERED: METOPROLOL TARTRATE 25 MG TAB PO SCH (21:00)
--- NOTE | 2016-11-27 21:11 | MB ---
cc: OLIVIA SALAS M.D. DATE OF CONSULTATION 11/27/16 Clement is a very pleasant 55-year old lady with a history of tobacco use with no significant cardiovascular history who has chronic clavicular pain from arthritis, but then developed a similar type of pain. However, she clearly states that this is a different type of pain. She then developed a syncopal event and was brought to the [facility] emergency room. Otherwise denies any fevers, chills, cough, GI or bleeding, paroxysmal nocturnal dyspnea, orthopnea or dizziness. PAST MEDICAL HISTORY Per history of present illness. SOCIAL HISTORY She drinks a pint of vodka daily. Smokes half-pack cigarettes a day. ALLERGIES None. MEDICATIONS Prior to admission Tramadol. In the hospital 1. Metoprolol 12.5 q.12 h 2. Half inch nitro paste q.8 h. 3. Folic acid. 4. Thiamine. 5. Multivitamins. 6. Famotidine 10 mg b.i.d. 7. Ibuprofen 400 q.6 h p.o. 8. Aspirin 325 p.o. daily. PHYSICAL EXAMINATION VITAL SIGNS: Blood pressure 156/82, pulse 70, respiratory rate 20, temperature 97.7. GENERAL: She is alert and oriented times three in no acute distress NECK: Supple. No JVD, no bruit CARDIOVASCULAR: S1, S2. No murmurs, rubs or gallops. LUNGS: Clear to auscultation bilaterally. ABDOMEN: Soft, nontender, nondistended, positive bowel sounds. EXTREMITIES: No lower extremity edema. LABORATORY DATA White count 9.5, hemoglobin 12.8, hematocrit 36.7, platelet count 303. Sodium 139, potassium 3.4, 111, bicarb 24.4, BUN 23, creatinine 0.86, glucose 170, troponin is 0.02 x3. Toxicology is positive for ethyl alcohol level of 212. CARDIOLOGY STUDIES EKG done 11/26/2016 - Normal sinus rhythm at 94 beats per minute. Nonspecific ST-T wave changes. Nuclear stress test 11/27/2016 - small old apical infarct, "small focus of mild stress-induced ischemia in the lateral wall" risk category is rated as low to medium. Gated study is intact wall motion thickening without hypokinetic or dyskinetic segments. IMAGING STUDIES Chest x-ray - No acute disease seen. DIAGNOSES 1. Unstable angina 2. [place] [employer] class IV angina 3. Tobacco use. 4. Hyperglycemia. 5. Alcohol abuse. 6. Alcohol intoxication. 7. Hypokalemia 8. Elevated CPK 9. Low to intermediate risk nuclear stress test. 10. Hypertension. DISCUSSION At this point in time, I think it is medically necessary to proceed with left heart catheterization due to [place] [employer] Class IV angina, unstable angina, multiple cardiac risk factors including tobacco use, hyperglycemia, age greater than 55, postmenopausal. Strongly recommend smoking cessation. Add Norvasc for better blood pressure control as well. Continue aspirin. MD CASPER Courtney/ /6:43 PM /8:50 PM
[2016-11-27] MEDS: ACETAMINOPHEN/HYDROcodone 325 MG/7.5 MG TAB PO PRN (22:00)
[2016-11-28] VITALS (27 sets, daily range): BP systolic 137–158; BP diastolic 66–88; PULSE 51–80; RESP 16–18; TEMP 97.5–98.7; O2SAT 97–98
[2016-11-28] MEDS: IBUPROFEN 400 MG TAB PO SCH ×3 (00:14→11:11)
[2016-11-28] MEDS: NITROGLYCERIN 2% OINT 1 GM PACKET TOPICAL SCH ×3 (05:47→21:26)
[2016-11-28] MEDS: MULTIVITAMINS/MINERALS THERAPEUTIC TAB PO SCH (08:01)
[2016-11-28] MEDS: DOCUSATE SODIUM 50 MG/SENNA 8.6 MG TAB PO SCH ×2 (08:01→21:22)
[2016-11-28] MEDS: THIAMINE HCL 100 MG TAB PO SCH (08:01)
[2016-11-28] MEDS: FAMOTIDINE 20 MG TAB PO SCH ×2 (08:01→21:23)
[2016-11-28] MEDS: ASPIRIN 325 MG TAB PO SCH (08:02)
[2016-11-28] MEDS: ACETAMINOPHEN/HYDROcodone 325 MG/7.5 MG TAB PO PRN ×3 (08:02→21:24)
[2016-11-28] MEDS: FOLIC ACID 1 MG TAB PO SCH (08:02)
[2016-11-28] MEDS: SODIUM CHLORIDE 0.9% FLUSH 10 ML FLUSH IV FLUSH SCH ×2 (08:25→21:26)
--- NOTE | 2016-11-28 11:41 | PD.CARD.PN ---
Subjective Subjective Remarks denies chest pain Objective Vital Signs / I&O Vital Signs Date Time Temp Pulse Resp B/P (MAP) Pulse Ox O2 Delivery O2 Flow Rate FiO2 11/28/16 09:09 18 11/28/16 08:00 98.7 61 18 140/74 (96) 97 11/28/16 07:00 54 11/28/16 06:00 56 11/28/16 05:16 72 16 137/79 (98) 97 11/28/16 05:00 60 11/28/16 04:00 56 11/28/16 03:00 51 11/28/16 02:00 58 11/28/16 01:00 56 11/28/16 00:00 74 16 149/66 (93) 98 11/28/16 00:00 58 11/27/16 23:00 64 11/27/16 22:00 74 11/27/16 21:00 68 11/27/16 20:00 62 11/27/16 19:15 98.7 68 18 135/84 (101) 96 11/27/16 19:00 73 11/27/16 16:00 97.7 70 20 156/82 (106) 97 11/27/16 14:39 20 11/27/16 12:00 96.5 70 20 158/82 (107) 96 I/O 11/27/16 11/27/16 11/27/16 11/28/16 11/28/16 11/28/16 07:00 15:00 23:00 07:00 15:00 23:00 Intake Total 0 ml 240 ml Output Total 0 ml Balance 0 ml 240 ml Intake Oral 0 ml 240 ml Output Stool Total 0 ml # Voids 3 Imaging GENERAL: SKIN: Warm and dry. HEAD: Normocephalic. EYES: No scleral icterus. No injection or drainage. NECK: Supple, trachea midline. No JVD or lymphadenopathy. CARDIOVASCULAR: Regular rate and rhythm without murmurs, gallops, or rubs. RESPIRATORY: Breath sounds equal bilaterally. No accessory muscle use. GASTROINTESTINAL: Abdomen soft, non-tender, nondistended. MUSCULOSKELETAL: No cyanosis, or edema. BACK: Nontender without obvious deformity. No CVA tenderness. Assessment and Plan Problem List: (1) Unstable angina ICD Codes: I20.0 - Unstable angina (2) Alcohol intoxication ICD Codes: F10.129 - Alcohol abuse with intoxication, unspecified Status: Acute (3) Chest tightness ICD Codes: R07.89 - Other chest pain Assessment and Plan 1.) [place] - assymptomatic, [facility] scheduled 11/28/16, continue aspirin, lopressor, dc tobacco Robbie Patterson MD Nov 28, 2016 11:41
--- NOTE | 2016-11-28 11:58 | HHI.PR ---
Subjective Remarks Follow up for chest discomfort and recent episode of syncope. Patient is currently doing well. No chest pain, shortness of breath, fever, chills. She is resting in bed. Objective Vitals Vital Signs Date Time Temp Pulse Resp B/P (MAP) Pulse Ox O2 Delivery O2 Flow Rate FiO2 11/28/16 09:09 18 11/28/16 08:00 98.7 61 18 140/74 (96) 97 11/28/16 07:00 54 11/28/16 06:00 56 11/28/16 05:16 72 16 137/79 (98) 97 11/28/16 05:00 60 11/28/16 04:00 56 11/28/16 03:00 51 11/28/16 02:00 58 11/28/16 01:00 56 11/28/16 00:00 74 16 149/66 (93) 98 11/28/16 00:00 58 11/27/16 23:00 64 11/27/16 22:00 74 11/27/16 21:00 68 11/27/16 20:00 62 11/27/16 19:15 98.7 68 18 135/84 (101) 96 11/27/16 19:00 73 11/27/16 16:00 97.7 70 20 156/82 (106) 97 11/27/16 14:39 20 11/27/16 12:00 96.5 70 20 158/82 (107) 96 I/O 11/27/16 11/27/16 11/27/16 11/28/16 11/28/16 11/28/16 07:00 15:00 23:00 07:00 15:00 23:00 Intake Total 0 ml 240 ml Output Total 0 ml Balance 0 ml 240 ml Intake Oral 0 ml 240 ml Output Stool Total 0 ml # Voids 3 Result Diagram: 11/26/16 1235 11/26/16 1235 Imaging Last Impressions Myocardial Perfusion Scan Nuc Med 11/27/16 0600 Signed Impressions: Service Date/Time: Sunday, November 27, 2016 09:33 - CONCLUSION: An apparent small, 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 Very small focus of mild stress-induced ischemia in the lateral wall. Normal wall motion. RISK CATEGORY: Low to medium Rik Kunz MD Shoulder X-Ray 11/26/16 1144 Signed Impressions: Service Date/Time: Saturday, November 26, 2016 12:19 - CONCLUSION: No acute right shoulder abnormality is identified. There is acromioclavicular joint osteoarthritis. Rik Claudio MD Clavicle X-Ray 11/26/16 1144 Signed Impressions: Service Date/Time: Saturday, November 26, 2016 12:14 - CONCLUSION: Acromioclavicular joint osteoarthritis with overlying soft tissue swelling. No acute finding is identified. Rik Claudio MD Chest X-Ray 11/26/16 1144 Signed Impressions: Service Date/Time: Saturday, November 26, 2016 12:08 - CONCLUSION: No acute disease. Bulmaro Chacon Jr., MD Objective Remarks GENERAL: AOX3, NAD. SKIN: Warm and dry. HEAD: Normocephalic. EYES: No scleral icterus. No injection or drainage. NECK: Supple, trachea midline. No JVD or lymphadenopathy. CARDIOVASCULAR: Regular rate and rhythm without murmurs, gallops, or rubs. RESPIRATORY: Breath sounds equal bilaterally. No accessory muscle use. GASTROINTESTINAL: Abdomen soft, non-tender, nondistended. MUSCULOSKELETAL: No cyanosis, or edema. BACK: Nontender without obvious deformity. No CVA tenderness. Procedures None. A/P Problem List: (1) Chest tightness ICD Code: R07.89 - Other chest pain Assessment and Plan This is a 55-year-old female with history of chronic right clavicle pain, tobacco and alcohol abuse. She presents with chest tightness for the last 48 hours. ER M.D. recommended hospitalization for chest pain rule out [place] protocol. Upon consultation, cardiology indicated the need for cardiac cath given patient's symptoms. - Chest pain - multiple risk factors for CAD including tobacco abuse and family history. - Abnormal nuclear stress test. - Cardiac cath today. IF clear, patient will be discharged home today. - Start Lipitor 20mg QHS. - Chronic pain - Acetaminophen, [place] and Morphine PRN. - Syncope - likely vasovagal. If syncope or near syncope, dizziness, lightheadedness occur again, we will obtain orthostatic BP - Alcohol abuse - Tobacco abuse - Patient has been counselled on abusing alcohol and tobacco. - Will stop Ibuprofen - pt has a history of alcohol abuse, currently on Aspirin 325mg and also being worked up for chest pain. - NSAIDs can cause both cardiac and GI adverse effects. Full code. SCDs. Kameron Bell DO Nov 28, 2016 11:58
[2016-11-28] MEDS: ATORVASTATIN 20 MG TAB PO SCH (21:21)
[2016-11-29] VITALS (27 sets, daily range): BP systolic 113–145; BP diastolic 62–78; PULSE 52–79; RESP 16–18; TEMP 97.9–98.9; O2SAT 97–99
[2016-11-29] MEDS: NITROGLYCERIN 2% OINT 1 GM PACKET TOPICAL SCH ×2 (06:10→21:10)
[2016-11-29] MEDS: ACETAMINOPHEN/HYDROcodone 325 MG/7.5 MG TAB PO PRN ×2 (06:11→21:11)
[2016-11-29] MEDS: ASPIRIN 325 MG TAB PO SCH (09:08)
[2016-11-29] MEDS: THIAMINE HCL 100 MG TAB PO SCH (09:08)
[2016-11-29] MEDS: SODIUM CHLORIDE 0.9% FLUSH 10 ML FLUSH IV FLUSH SCH (09:08)
[2016-11-29] MEDS: DOCUSATE SODIUM 50 MG/SENNA 8.6 MG TAB PO SCH ×2 (09:08→21:11)
[2016-11-29] MEDS: MULTIVITAMINS/MINERALS THERAPEUTIC TAB PO SCH (09:08)
[2016-11-29] MEDS: FAMOTIDINE 20 MG TAB PO SCH ×2 (09:09→21:10)
[2016-11-29] MEDS: FOLIC ACID 1 MG TAB PO SCH (09:09)
--- NOTE | 2016-11-29 09:25 | HHI.PR ---
Subjective Remarks Follow-up regarding chest pain. Had positive stress test. Is scheduled for cardiac catheterization today. Await cardiac catheterization for further determination of the patient's treatment A.m. labs Discussed with patient and RN Objective Vitals Vital Signs Date Time Temp Pulse Resp B/P (MAP) Pulse Ox O2 Delivery O2 Flow Rate FiO2 11/29/16 07:34 97.9 59 16 127/64 (85) 97 11/29/16 06:00 56 11/29/16 05:08 61 16 119/65 (83) 97 11/29/16 05:00 52 11/29/16 04:00 52 11/29/16 03:00 54 11/29/16 02:00 52 11/29/16 01:00 52 11/29/16 00:00 71 18 145/78 (100) 99 11/29/16 00:00 56 11/28/16 23:00 54 11/28/16 22:00 56 11/28/16 21:00 58 11/28/16 20:00 62 11/28/16 19:53 97.5 70 18 142/80 (100) 97 11/28/16 19:00 64 11/28/16 18:00 54 11/28/16 17:30 97 21 11/28/16 17:00 52 11/28/16 16:00 52 11/28/16 15:59 18 11/28/16 15:00 98.5 58 18 146/69 (94) 97 11/28/16 15:00 53 11/28/16 14:00 58 11/28/16 13:00 52 11/28/16 12:30 18 11/28/16 12:00 98.3 70 18 158/88 (111) 98 11/28/16 12:00 60 11/28/16 11:00 60 11/28/16 10:00 58 I/O 11/28/16 11/28/16 11/28/16 11/29/16 11/29/16 11/29/16 06:59 14:59 22:59 06:59 14:59 22:59 Intake Total 240 ml 720 ml 480 ml Output Total 0 ml 1000 ml Balance 240 ml 720 ml -520 ml Intake Oral 240 ml 720 ml 480 ml Output Urine Total 1000 ml Stool Total 0 ml # Voids 3 3 # Bowel Movements 0 Result Diagram: 11/26/16 1235 11/26/16 1235 Other Results Laboratory Tests Test 11/26/16 12:35 11/26/16 14:43 11/26/16 18:12 White Blood Count 9.5 TH/MM3 Red Blood Count 3.81 MIL/MM3 Hemoglobin 12.8 GM/DL Hematocrit 36.7 % Mean Corpuscular Volume 96.5 FL Mean Corpuscular Hemoglobin 33.6 PG Mean Corpuscular Hemoglobin Concent 34.8 % Red Cell Distribution Width 14.6 % Platelet Count 303 TH/MM3 Mean Platelet Volume 7.3 FL Neutrophils (%) (Auto) 56.5 % Lymphocytes (%) (Auto) 34.3 % Monocytes (%) (Auto) 4.4 % Eosinophils (%) (Auto) 0.8 % Basophils (%) (Auto) 4.0 % Neutrophils # (Auto) 5.4 TH/MM3 Lymphocytes # (Auto) 3.2 TH/MM3 Monocytes # (Auto) 0.4 TH/MM3 Eosinophils # (Auto) 0.1 TH/MM3 Basophils # (Auto) 0.4 TH/MM3 CBC Comment DIFF FINAL Differential Comment Blood Urea Nitrogen 23 MG/DL Creatinine 0.86 MG/DL Random Glucose 170 MG/DL Calcium Level 8.7 MG/DL Magnesium Level 2.5 MG/DL Sodium Level 139 MEQ/L Potassium Level 3.4 MEQ/L Chloride Level 101 MEQ/L Carbon Dioxide Level 24.4 MEQ/L Anion Gap 14 MEQ/L Estimat Glomerular Filtration Rate 68 ML/MIN Troponin I 0.02 NG/ML 0.02 NG/ML 0.02 NG/ML Ethyl Alcohol Level 212 MG/DL Total Creatine Kinase 258 U/L 269 U/L Creatine Kinase MB 5.3 NG/ML 4.8 NG/ML Creatine Kinase MB % 2.1 % 1.8 % Imaging Last Impressions Myocardial Perfusion Scan Nuc Med 11/27/16 0600 Signed Impressions: Service Date/Time: Sunday, November 27, 2016 09:33 - CONCLUSION: An apparent small, 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 Very small focus of mild stress-induced ischemia in the lateral wall. Normal wall motion. RISK CATEGORY: Low to medium Rik Kunz MD Shoulder X-Ray 11/26/16 1144 Signed Impressions: Service Date/Time: Saturday, November 26, 2016 12:19 - CONCLUSION: No acute right shoulder abnormality is identified. There is acromioclavicular joint osteoarthritis. Rik Claudio MD Clavicle X-Ray 11/26/16 1144 Signed Impressions: Service Date/Time: Saturday, November 26, 2016 12:14 - CONCLUSION: Acromioclavicular joint osteoarthritis with overlying soft tissue swelling. No acute finding is identified. Rik Claudio MD Chest X-Ray 11/26/16 1144 Signed Impressions: Service Date/Time: Saturday, November 26, 2016 12:08 - CONCLUSION: No acute disease. Bulmaro Chacon Jr., MD Objective Remarks GENERAL: Awake alert and oriented talkative and cooperative SKIN: Warm and dry. No obvious rashes HEAD: Atraumatic. Normocephalic. EYES: Pupils equal and round. No scleral icterus. No injection or drainage. Extraocular muscles intact ENT: No nasal bleeding or discharge. Mucous membranes pink and moist. Tongue is midline NECK: Trachea midline. No JVD. Supple CARDIOVASCULAR: Regular rate and rhythm. S1-S2 no S3 or S4 no heave or thrill or rub or gallop RESPIRATORY: No accessory muscle use. Clear to auscultation. Breath sounds equal bilaterally. GASTROINTESTINAL: Abdomen soft, non-tender, nondistended. Hepatic and splenic margins not palpable. MUSCULOSKELETAL: Extremities without clubbing, cyanosis, or edema. No obvious deformities. NEUROLOGICAL: Awake and alert. No obvious cranial nerve deficits. Motor grossly within normal limits. Five out of 5 muscle strength in the arms and legs. Normal speech. PSYCHIATRIC: Appropriate mood and affect; insight and judgment normal. Procedures None. Medications and IVs Current Medications Acetaminophen/ Hydrocodone Bitart (Avalon 5-325 Mg) 2 tab ONCE ONCE PO Last administered on 11/26/16 12:41; Start 11/26/16 at 11:45; Stop 11/26/16 at 11:46 ; Status DC Sodium Chloride (NS Flush) 2 ml UNSCH PRN IVF FLUSH AFTER USING IV ACCESS; Start 11/26/16 at 12:15; Stop 11/26/16 at 13:48; Status DC Sodium Chloride (NS Flush) 2 ml UNSCH PRN IV FLUSH FLUSH AFTER USING IV ACCESS ; Start 11/26/16 at 13:45 Sodium Chloride (NS Flush) 2 ml BID IV FLUSH Last administered on 11/29/16 09: 08; Start 11/26/16 at 21:00 Acetaminophen (Tylenol) 500 mg Q4H PRN PO HEADACHE; Start 11/26/16 at 13:45; Stop 11/28/16 at 12:26; Status DC Acetaminophen/ Hydrocodone Bitart (Avalon 7.5-325 Mg) 1 tab Q4H PRN PO PAIN SCALE 5 TO 10 Last administered on 11/29/16 06:11; Start 11/26/16 at 13:45 Morphine Sulfate (Morphine Inj) 2 mg Q4H PRN IV BREAKTHROUGH PAIN; Start at 13:45 Ondansetron HCl (Zofran Inj) 4 mg Q6H PRN IV NAUSEA; Start 11/26/16 at 13:45 Nitroglycerin (Nitrostat Sl) 0.4 mg Q5M PRN SL CHEST PAIN; Start 11/26/16 at 13 :45 Aspirin (Aspirin) 325 mg DAILY PO Last administered on 11/29/16 09:08; Start 11/26/16 at 14:00 Potassium Chloride (KCl) 30 meq ONCE ONCE PO Last administered on 11/26/16 15 :42; Start 11/26/16 at 15:00; Stop 11/26/16 at 15:01; Status DC Folic Acid (Folate) 1 mg DAILY PO Last administered on 11/29/16 09:09; Start 11/27/16 at 09:00; Stop 12/02/16 at 08:59 Thiamine HCl (Vitamin B1) 100 mg DAILY PO Last administered on 11/29/16 09:08 ; Start 11/27/16 at 09:00 Multivitamins/ Minerals Therapeutic (Theragran M Tab) 1 tab DAILY PO Last administered on 11/29/16 09:08; Start 11/27/16 at 09:00; Stop 12/02/16 at 08:59 Flumazenil (Romazicon Inj) 0.2 mg Q1M PRN IV PUSH SEE LABEL COMMENTS; Start at 14:00 Lorazepam (Ativan) 1 mg Q4H PRN PO CIWA 8 - 10 Last administered on 11/29/16 09:11; Start 11/26/16 at 14:00 Lorazepam (Ativan Inj) 1 mg Q4H PRN IV PUSH CIWA 8 - 10; Start 11/26/16 at 14: 00 Lorazepam (Ativan) 2 mg Q2H PRN PO CIWA 11-14; Start 11/26/16 at 14:00 Lorazepam (Ativan Inj) 2 mg Q2H PRN IV PUSH CIWA 11-14; Start 11/26/16 at 14:00 Lorazepam (Ativan Inj) 2 mg Q1H PRN IV PUSH CIWA 15-20; Start 11/26/16 at 14:00 Lorazepam (Ativan Inj) 2 mg Q15M PRN IV PUSH CIWA > 20; Start 11/26/16 at 14:00 Haloperidol Lactate (Haldol Inj) 2 mg Q15M PRN IM SEE LABEL COMMENTS; Start at 14:00 Acetaminophen (Tylenol) 650 mg Q4H PRN PO Headache, fever, pain 1-4; Start at 14:00 Naloxone HCl (Narcan Inj) 0.4 mg UNSCH PRN IV SEE LABEL COMMENTS; Start at 14:00 Senna/Docusate Sodium (Desiree-Colace) 1 tab BID PO Last administered on 09:08; Start 11/26/16 at 21:00 Magnesium Hydroxide (Milk Of Magnesia Liq) 30 ml Q12H PRN PO MILD - MODERATE CONSTIPATION; Start 11/26/16 at 14:00 Sennosides (Senokot) 17.2 mg Q12H PRN PO MODERATE - SEVERE CONSTIPATION; Start 11/26/16 at 14:00 Bisacodyl (Dulcolax Supp) 10 mg DAILY PRN RECTAL SEVERE CONSITIPATION; Start at 14:00 Lactulose (Lactulose Liq) 30 ml DAILY PRN PO SEVERE CONSITIPATION; Start at 14:00 Albuterol Sulfate (Albuterol Neb) 2.5 mg ONCE ONCE NEB Last administered on t 17:57; Start 11/26/16 at 18:00; Stop 11/26/16 at 18:01; Status DC Albuterol Sulfate (Albuterol Neb) 2.5 mg Q2HR NEB PRN NEB sob or chest tightness; Start 11/26/16 at 17:30 Ibuprofen (Motrin) 400 mg Q6HR PO Last administered on 11/28/16 11:11; Start 11/26/16 at 18:00; Stop 11/28/16 at 11:55; Status DC Famotidine (Pepcid) 10 mg BID PO Last administered on 11/29/16 09:09; Start at 21:00 Miscellaneous (Pill Splitter) 1 ea UNSCH PRN OTHER SEE LABEL COMMENTS; Start at 17:45 Regadenoson (Lexiscan Inj) 0.4 mg STK-MED ONCE IV Last administered on 10:43; Start 11/27/16 at 10:43; Stop 11/27/16 at 10:44; Status DC Nitroglycerin (Nitroglycerin 2% Oint) 0.5 inch Q8HR TOPICAL Last administered on 11/29/16 06:10; Start 11/27/16 at 14:00 Metoprolol Tartrate (Lopressor) 12.5 mg Q12HR PO ; Start 11/27/16 at 21:00; Stop 11/27/16 at 21:00; Status DC Atorvastatin Calcium (Lipitor) 20 mg HS PO Last administered on 11/28/16 21:21 ; Start 11/28/16 at 21:00 Urinary Catheter: No Vascular Central Line Catheter: No A/P Problem List: (1) Chest tightness ICD Code: R07.89 - Other chest pain (2) Tobacco abuse ICD Code: Z72.0 - Tobacco use (3) Alcohol intoxication ICD Code: F10.129 - Alcohol abuse with intoxication, unspecified Status: Acute Assessment and Plan This is a 55-year-old female with history of chronic right clavicle pain, tobacco and alcohol abuse. She presents with chest tightness for the last 48 hours. ER M.D. recommended hospitalization for chest pain rule out [place] protocol. Upon consultation, cardiology indicated the need for cardiac cath given patient's symptoms. - Chest pain - multiple risk factors for CAD including tobacco abuse and family history. - Abnormal nuclear stress test. - Cardiac cath today. IF clear, patient MAY be discharged home today. - Start Lipitor 20mg QHS. - Chronic pain - Acetaminophen, [place] and Morphine PRN. - Syncope - likely vasovagal. If syncope or near syncope, dizziness, lightheadedness occur again, we will obtain orthostatic BP - Alcohol abuse - Tobacco abuse - Patient has been counselled on abusing alcohol and tobacco. - Will stop Ibuprofen - pt has a history of alcohol abuse, currently on Aspirin 325mg and also being worked up for chest pain. - NSAIDs can cause both cardiac and GI adverse effects. NICODERM AND ROMANI, THIAMINE, FOLIC ACID Full code. SCDs. Sundeep Talavera DO Nov 29, 2016 09:25
[2016-11-29] MEDS ORDERED: NICOTINE 14 MG/24 HR PATCH T-DERMAL ONE (11:00)
[2016-11-29] MEDS ORDERED: IOHEXOL 350 MG/ML 100 ML BTL (for Cath Lab) OTHER ONE (11:59)
[2016-11-29] MEDS ORDERED: HEPARIN-NS/PF INJ 1,000 ML ONE (12:08)
--- NOTE | 2016-11-29 12:13 | TR ---
Date Performed: 11/27/2016 Time Performed: 10:25:41 DOCTOR: Johann Dillon DRUG LIST: CLINICAL HISTORY: REASON FOR TEST: REASON FOR ENDING: OBSERVATION: CONCLUSION: Lexiscan stress test was performed under standard four minute protocol. [place]ionucl[place] e was injected one minute prior to ending the test. No electrocardiographic abormalities were present to suggest ischemia. Nuclear imaging and interpretation are pending. COMMENTS:
[2016-11-29] MEDS ORDERED: MIDAZOLAM HCL 2 MG/2 ML VIAL ONE (12:19)
[2016-11-29] MEDS ORDERED: HEPARIN SODIUM - IV 10,000 UNITS/10 ML VIAL ONE (12:34)
[2016-11-29] MEDS ORDERED: TIROFIBAN INFUSION INJ 250 ML IV ONE (12:39)
[2016-11-29] MEDS ORDERED: CLOPIDOGREL 300 MG TAB ONE (12:59)
[2016-11-29] MEDS ORDERED: TIROFIBAN INFUSION INJ 250 ML IV SCH (13:00)
[2016-11-29] MEDS ORDERED: SODIUM CHLORIDE 0.9% FLUSH 10 ML FLUSH PRN (13:00)
[2016-11-29] MEDS ORDERED: MISC INFORMATION XX ONE (13:00)
[2016-11-29] MEDS ORDERED: CLOPIDOGREL 300 MG TAB PO ONE (13:00)
[2016-11-29] MEDS ORDERED: BACITRACIN OINT 0.9 GM PKT TOP ONE (13:00)
--- NOTE | 2016-11-29 13:16 | CATHPROC ---
[facility] HIS Report Study Information Study Number Admission Scheduled Start Study Start [id number] Nov 26 2016 1:43PM 11/29/2016 Nov 29 2016 11:57AM [place] Service Cardiac Catheterization Admit Source Facility Department Emergency department [facility] Physician and Clinical Staff Initial Robbie Elizabeth Prick Stitcher Pranav Coyle RN Recorder Cristal Yarbrough RCIS TECH2 Scrub Katy De Santiago,RT(R) Procedures Performed Procedure Location (Site) Vessel Name Coronary Angiograms LCA Left Coronary Coronary Angiograms RCA Right Coronary Drug Eluting Inflatio LAD Mid Left Coronary LV Gram-hand inj. LV LV Ventricle Wire insertion Fem Art (right) Femoral Art Equipment Time Outdoor Landscape Architect Description Size Mfg Part Number Used/Scraped [id number] 12:38 [facility] WIRE, [employer] PROWATER 180CM 180CM Used *[id number] TRANSDUCER, TRUWAVE [id number] 12:08 [employer] * Used W/STOCKCOCK *[id number] [id number] *[id number] [id number] *[id number] [phone] *[id number] [phone] *[id number] 12:08 [employer] INDUSTRIES PACK, CCL CUSTOM * Used *[id number] 12:08 Peer39 PACER PEN, SKIN DUAL W/ RULER * Used *[id number] 12:36 [employer] STENT, 3.0 9 INTEGRITY 3.0 9 Used *[id number] 12:50 [employer] 30 GALEN INDEFLATOR Used *[id number] 12:35 [employer] MEDICAL SHEATH, FR6.5 PRELUDE 11CM FR 6.5 038ACT Used *[id number] 12:08 [employer] WIRE, 3MMJ .035 180CM 180CM Used *[id number] 12:08 NAMIC MANIFOLD, 4 PORT * Used *[id number] 12:08 [employer]COMED OMNIPAQUE, 350 MG, 150ML 150ML [id number] Used [id number] 12:08 [employer]WOK MEDICAL BLANKET,WARM AIR CCL * Used *[id number] 12:08 TERUMO MEDICAL SHEATH, FR4 TERUMO (10CM) FR 4 Used *[id number] Equipment Model, Serial, Lot Number and Expiration Data Description Model Number Serial Number Lot Number Expiration Date STENT, 3.0 9 INTEGRITY [id number] 06-30-2018 History: Allergies Allergy Reaction No Known Allergies History: Risk Factors Family History of Hypertension Dyslipidemia Previous AL Previous Heart Failure Premature CAD No No Yes No No Prior Valve Prior PCI Prior CABG Surgery No No No Cerebrovascular Peripheral Artery Chronic Lung On Dialysis Diabetes Disease Disease Disease No No No No No History: Symptoms/Diagnosis Selection Items Chest pain Syncope History: Stress Tests Stress or Imaging Studies Performed Yes Standard Exercise Stress Test No Stress Echo No Stress Test SPECT Stress Test SPECT Result Stress Test SPECT Ischemia Risk/Extent Yes Positive Intermediate Stress Test CMR No Cardiac CTA Coronary Calcium Score No No History: Other Current Smoker Method Packs a Day Years Used Pack Years Yes Cigarettes 1 30 30 Labs Hgb (g/dl) Hct (%) RBC (MIL/MM3) WBC (l/cumm) Platelets (thousands) 11.60-17.00 35.00-51.00 4.00-5.90 4.00-11.00 150.00-450.00 12.8 36.7 3.8 9.5 303 Glucose (mg/dl) BUN (mg/dl) Creatinine (mg/dl) BUN:Creatinine (1:x) 74.00-106.00 7.00-18.00 0.50-1.30 10.00-20.00 170 23 0.8 28.8 Na (meq/l) K (meq/l) Cl (meq/l) CO2 (mmol/L) Ca (mg/dl) 136.00-145.00 3.50-5.10 98.00-107.00 21.00-32.00 8.50-10.10 139 3.4 101 24.4 8.7 Troponin I (ng/ml) CPK (u/l) CPK-MB (ng/ML) 0.02-0.05 26.00-308.00 0.50-3.60 0.02 258 5.3 Medication Medication Total Dose (Bolus/Oral) Medication Total Dosage/Unit 1% XYLOCAINE 20 mL AGGRASTAT BOLUS 28 mL HEPARIN 4900 units PLAVIX 600 mg VERSED 2 mg Medications (Bolus/Oral) Medication Time Given Dosage/Unit Administered By Reason VERSED 11/29/2016 12:27:31 PM 1 mg Pranav Coyle 1 mg VERSED given in lab by Pranav Coyle RN in Left Forearm via Peripheral IV. Ordered by Robbie Patterson. 1% XYLOCAINE 11/29/2016 12:27:35 PM 20 mL Robbie Patterson 20 mL 1% XYLOCAINE given in lab by Robbie Patterson in Right Groin via Subcutaneous. HEPARIN 11/29/2016 12:33:07 PM 3900 units Pranav Coyle 3900 units HEPARIN given in lab by Pranav Coyle RN in Left Forearm via Peripheral IV. Ordered by Robbie Ramos. VERSED 11/29/2016 12:34:35 PM 1 mg Pranav Coyle 1 mg VERSED given in lab by Pranav Coyle RN in Left Forearm via Peripheral IV. Ordered by Robbie Patterson. HEPARIN 11/29/2016 12:49:47 PM 1000 units Pranav Coyle 1000 units HEPARIN given in lab by Pranav Coyle RN in Left Forearm via Peripheral IV. Ordered by Robbie Ramos. AGGRASTAT BOLUS 11/29/2016 12:51:06 PM 28 mL Pranav Coyle 28 mL AGGRASTAT BOLUS given in lab by Pranav Coyle RN in Left Forearm via Peripheral IV. Ordered by Robbie Patterson. PLAVIX 11/29/2016 1:00:17 PM 600 mg Pranav Coyle 600 mg PLAVIX given in lab by Pranav Coyle RN via Oral. Ordered by Robbie Patterson. Medication (Drip) Medication Time Given Dosage/Unit Concentration/Unit Diluent (ml) Solution AGGRASTAT DRIP 11/29/2016 12:53:40 PM 0.15 mcg/kg/min 12.5 mg 250 NaCl .9 0.15 mcg/kg/min AGGRASTAT DRIP given in lab by Pranav Coyle RN in Left Forearm via Peripheral IV. P ump/Drip Flow = 10.03 ml/hr using NaCl .9 with a concentration of 12.5 mg in 250 ml. Ordered by Robbie Patterson. Initial Case Assessment Cardiovascular HR Rhythm NIBP Chest Pain 51 sb 125/73 0 Circulatory - Right Pulses Dorsalis Pedis Femoral 3 3 Scale (0,1,2,3,4,d) Circulatory - Left Pulses Dorsalis Pedis Femoral 3 3 Scale (0,1,2,3,4,d) Neurological State Oriented to time-place- Alert Moves all extremities person Respiration - General Respiration Rate SpO2 (%) (B/min) 16 99 Final Case Assessment Cardiovascular HR Rhythm NIBP 59 SR 139/64 Circulatory - Right Pulses Dorsalis Pedis Femoral 3 3 Scale (0,1,2,3,4,d) Circulatory - Left Pulses Dorsalis Pedis Femoral 3 3 Scale (0,1,2,3,4,d) Neurological State Oriented to time-place- Alert Moves all extremities person Respiration - General Respiration Rate SpO2 (%) (B/min) 21 96 Chronological Log Time Study Chronological Log 11:59:39 Patient arrived via Bed. 11:59:40 Patient Name, D.O.B, / Armband Verified By R.N. 11:59:41 Consent signed by the physician and the patient and verified by the [facility] staff. 11:59:42 Pre-op and post- op instructions given; patient acknowledges understanding of instructions. 11:59:45 Verbal Stimulation=2 Physical Stimulation=2 Airway=2 Respiration=2 TOTAL=8. (0=absent, 1=li mited, 2=present) 11:59:55 Patient has been NPO for More than 6Hrs. 11:59:56 Skin Breakdown-cut on rt foot from sandal. 11:59:57 Patient Warmer Placed on the Table. 11:59:57 Disposable Defibrillator Pads Placed On Patient. 11:59:58 Harriett Prominences Protected 12:00:02 A # 20 IV was noted in the Forearm (left). Grade = 0 12:00:03 History and physical on the chart or being dictated. Assessment: Initial Case, HR=51 BPM, Rhythm=sb, LDWH=052/73 mmhg, Chest Pain=0 Right Pulses: Abram Ped=3, Femoral=3 12:00:12 Left Pulses: Abram Ped=3, Femoral=3 Neurological: State=Alert, Ox3, MARIANO Respiration: Resp=16 B/min, SpO2=99 % Vitals capture started with the following parameters, Patient=Adult, Interval=5 min, Initial Pr vjjmcg=035 mmHg, 12:03:43 Deflation Rate=5 mmHg, Cuff placed on Left Arm 12:04:24 HR=52 bpm, PRJU=380/74 mmhg, SpO2=99.0 %, Resp=20 B/min, Pain=0, Mckeon=2 12:09:21 HR=59 bpm, XDYP=664/73 mmhg, SpO2=99.0 %, Resp=15 B/min, Pain=0, Mckeon=2 12:09:46 Reference ECG taken 12:12:12 Bilateral groins prepped with 2% chlorhexidine, and with a 3 min. waiting time. 12:14:18 HR=53 bpm, EUCT=292/70 mmhg, SpO2=99.0 %, Resp=15 B/min 12:16:18 Pressure channel 1 zeroed. 12:19:19 HR=54 bpm, CERE=227/71 mmhg, SpO2=97.0 %, Resp=18 B/min, Pain=0, Mckeon=2 12::29 MD paged 12::30 MD responded 12:: MD arrived. 12:24:18 HR=56 bpm, ZWBN=475/72 mmhg, SpO2=98.0 %, Resp=13 B/min Time Out. Correct patient, correct procedure,correct physician, ,power injector not loaded with contrast with surgical 12:27:12 team present. Time Out Concurred by MD, individual staff in procedure 12::29 Case Start 12::31 1 mg VERSED given in lab by Pranav Coyle RN in Left Forearm via Peripheral IV. Ordered by Robbie Patterson. 12:27:35 20 mL 1% XYLOCAINE given in lab by Robbie Patterson in Right Groin via Subcutaneous. 12:28:32 Access site was Right Femoral Artery. 12:28:47 A SHEATH, FR4 TERUMO (10CM) FR 4 was advanced into the Fem Art (right) using the Percutaneo us technique. A JR 4.0 INFINITI CATHETER FR 4 was advanced over a wire. OMNIPAQUE, 350 MG, 150ML 150ML was us ed for 12:29:19 injections. 12:29:21 HR=60 bpm, BYIS=117/66 mmhg, SpO2=97.0 %, Resp=13 B/min, Pain=0, Mckeon=2 Recorded Pressure: LV, HR=62, Condition=Condition 1 12:30:12 (Left Ventricle) LV 124/1/7 12:30:18 The LV was manually injected with 10 cc's and visualized. OMNIPAQUE, 350 MG, 150ML 150ML us ed. Recorded Pressure: LV, Ao, HR=64, Condition=Condition 1 12:30:28 (Left Ventricle) LV 112/0/7, (Aorta) Ao 118/60/84 12:30:43 The RCA was injected and visualized at various angles. OMNIPAQUE, 350 MG, 150ML 150ML used . 12:30:58 Catheter was removed A JL 4.0 INFINITI CATHETER FR 4 was advanced over a wire. OMNIPAQUE, 350 MG, 150ML 150ML was us ed for 12:31:09 injections. 12:32:19 The LCA was injected and visualized at various angles. OMNIPAQUE, 350 MG, 150ML 150ML used . 12:33:07 3900 units HEPARIN given in lab by Pranav Coyle RN in Left Forearm via Peripheral IV. Ord ered by Robbie Patterson. A SHEATH, FR6.5 PRELUDE 11CM FR 6.5 was exchanged in the Fem Art (right). This was necessary in order to 12:34:07 accomodate a larger catheter. 12:34:18 HR=60 bpm, XOPD=147/71 mmhg, SpO2=96.0 %, Resp=10 B/min, Pain=0, Mckeon=2 12:34:35 1 mg VERSED given in lab by Pranav Coyle RN in Left Forearm via Peripheral IV. Ordered by Robbie Patterson. A XB 3.5 GUIDE CATHETER FR 6 was advanced over a wire. OMNIPAQUE, 350 MG, 150ML 150ML was used for 12:35:39 injections. 12:37:19 Activated Clotting Time Drawn 12:37:55 A WIRE, ASAHI PROWATER 180CM 180CM was inserted via Fem Art (right). 12:38:47 Wire removed 12:39:23 HR=68 bpm, HYAW=620/64 mmhg, SpO2=96.0 %, Resp=12 B/min Unable to cannulate LCA. After removing the current catheter a XB 3.0 GUIDE CATHETER FR 6 was a dvanced over a 12:40:36 WIRE, 3MMJ .035 180CM 180CM. 12:41:38 ACT (Normal Range 90-180) = 201 12:42:37 The LCA was injected and visualized at various angles. OMNIPAQUE, 350 MG, 150ML 150ML used . 12:43:22 A WIRE, ASAHI PROWATER 180CM 180CM was inserted via Fem Art (right). 12:44:20 HR=58 bpm, EIEC=063/60 mmhg, SpO2=97.0 %, Resp=11 B/min A STENT, 3.0 9 INTEGRITY 3.0 9 was advanced through a XB 3.0 GUIDE CATHETER FR 6 over a WIRE, A WILLIAM 12:46:03 PROWATER 180CM 180CM. A STENT, 3.0 9 INTEGRITY 3.0 9 was deployed using a 30 GALEN INDEFLATOR at 13 atmospheres for 40 seconds in the 12:49:04 LAD Mid. 12:49:19 HR=63 bpm, ERMU=686/73 mmhg, SpO2=95.0 %, Resp=17 B/min 12:49:47 1000 units HEPARIN given in lab by Pranav Coyle RN in Left Forearm via Peripheral IV. Ord ered by Robbie Patterson. 12:50:20 Delivery device removed 12:50:38 Wire removed 12:50:40 Catheter was removed 12:50:48 Case End 28 mL AGGRASTAT BOLUS given in lab by Pranav Coyle RN in Left Forearm via Peripheral IV. Orde red by Yesenia, 12:51:06 Robbie. 0.15 mcg/kg/min AGGRASTAT DRIP given in lab by Pranav Coyle RN in Left Forearm via Peripheral IV. Pump/Drip Flow 12:53:40 = 10.03 ml/hr using NaCl .9 with a concentration of 12.5 mg in 250 ml. Ordered by Kiko Patterson. 12:54:20 HR=56 bpm, GSGN=951/64 mmhg, SpO2=98.0 %, Resp=16 B/min 12:56:32 In the Fem Art (right) the SHEATH, FR6.5 PRELUDE 11CM FR 6.[address] by Katy De Santiago RT(R). 12:56:47 Sterile dressing applied to site 12:56:49 No case complications noted. Assessment: Final Case, HR=59 BPM, Rhythm=SR, TETF=756/64 mmhg Right Pulses: Abram Ped=3, Femoral=3 12:56:50 Left Pulses: Abram Ped=3, Femoral=3 Neurological: State=Alert, Ox3, MARIANO Respiration: Resp=21 B/min, SpO2=96 % 12:59:25 HR=53 bpm, JGXA=844/65 mmhg, SpO2=95.0 %, Resp=16 B/min, Pain=0, Mckeon=2 13:00:17 600 mg PLAVIX given in lab by Pranav Coyle RN via Oral. Ordered by Robbie Patterson. 13:00:18 Activated Clotting Time Drawn 13:03:59 Vitals capture stopped. 13:04:11 ACT (Normal Range 90-180) = 236 13:07:32 Patient moved to bed 13:09:32 Patient transported to [facility] End Study - Contrast Media Used In Study Contrast Total Opened (mL) Total Used (mL) Total Wasted (mL) Omnipaque 100 100 0 End Study - Maximum Contrast Load Max Contrast Load (mL) 348.0 End Study - Radiation Exposure Fluoro Time (minutes) 4.4 End Study - Patient Disposition Complications Transferred To Interventional Outcome No Telemetry Bed successful
[2016-11-29] MEDS: SODIUM CHLORIDE 0.9% FLUSH 10 ML FLUSH SCH (21:00)
[2016-11-29] MEDS: ATORVASTATIN 20 MG TAB PO SCH (21:10)
[2016-11-29] MEDS: guaiFENesin E.R. 600 MG TAB PO SCH (21:10)
[2016-11-30] VITALS (12 sets, daily range): BP systolic 101–122; BP diastolic 52–69; PULSE 53–68; RESP 18–20; TEMP 89.3–98; O2SAT 97
[2016-11-30] MEDS: ACETAMINOPHEN/HYDROcodone 325 MG/7.5 MG TAB PO PRN (04:43)
[2016-11-30] MEDS: NITROGLYCERIN 2% OINT 1 GM PACKET TOPICAL SCH (06:23)
[2016-11-30 07:23] LABS: BICARBONATE 25.5 MEQ/L (21.0-32.0); POTASSIUM 4.1 MEQ/L (3.5-5.1)
[2016-11-30 07:26] LABS: AUTOMATED NEUTROPHIL # 4.1 TH/MM3 (1.8-7.7); BASOPHIL # 0.1 TH/MM3 (0-0.2); BASOPHIL % 0.8 % (0.0-2.0); EOSINOPHIL # 0.3 TH/MM3 (0-0.4); EOSINOPHIL % 3.3 % (0.0-4.0); HEMATOCRIT 37.3 % (35.0-46.0); HEMO FLAGS DIFF FINAL; LYMPH % 36.3 % (9.0-44.0); LYMPHOCYTE # 2.8 TH/MM3 (1.0-4.8); MEAN CELL VOLUME 100.6 FL (80.0-100.0); MEAN CORPUSCULAR HEMOGLOBIN 33.8 PG (27.0-34.0); MEAN CORPUSCULAR HGB CONC 33.6 % (32.0-36.0); MONO % 6.1 % (0.0-8.0); NEUT % 53.5 % (16.0-70.0); PLATELET COUNT 226 TH/MM3 (150-450); RED BLOOD COUNT 3.71 MIL/MM3 (4.00-5.30); RED CELL DISTRIBUTION WIDTH 15.2 % (11.6-17.2); WHITE BLOOD COUNT 7.6 TH/MM3 (4.0-11.0)
[2016-11-30 07:27] LABS: HDL CHOLESTEROL 64.1 MG/DL (40.0-60.0)
[2016-11-30] MEDS: MULTIVITAMINS/MINERALS THERAPEUTIC TAB PO SCH (08:22)
[2016-11-30] MEDS: FAMOTIDINE 20 MG TAB PO SCH (08:22)
[2016-11-30] MEDS: REMOVE OLD PATCH T-DERMAL SCH ×3 (08:22→09:00)
[2016-11-30] MEDS: FOLIC ACID 1 MG TAB PO SCH (08:23)
[2016-11-30] MEDS: THIAMINE HCL 100 MG TAB PO SCH (08:23)
[2016-11-30] MEDS: guaiFENesin E.R. 600 MG TAB PO SCH (08:23)
[2016-11-30] MEDS: DOCUSATE SODIUM 50 MG/SENNA 8.6 MG TAB PO SCH (08:23)
--- NOTE | 2016-11-30 08:49 | HHI.PR ---
Subjective Remarks HAD CARDIAC CATH YESTERDAY WITH STENT TO LAD WANTS TO GO HOME TODAY DC TO HOME IF OK WITH CARDIOLOGY DW PT AND RN NO CHEST PAIN Objective Vitals Vital Signs Date Time Temp Pulse Resp B/P (MAP) Pulse Ox O2 Delivery O2 Flow Rate FiO2 11/30/16 07:40 89.3 68 20 101/52 (68) 11/30/16 07:00 68 11/30/16 06:00 56 11/30/16 05:00 56 11/30/16 04:00 54 11/30/16 03:00 53 11/30/16 03:00 98.0 53 18 122/69 (86) 97 11/30/16 02:00 58 11/30/16 01:00 66 11/30/16 00:00 62 11/29/16 23:00 64 11/29/16 23:00 98.3 61 18 115/62 (79) 98 11/29/16 22:00 61 11/29/16 21:00 66 11/29/16 20:00 70 11/29/16 19:02 97 11/29/16 19:00 98.8 68 18 117/67 (84) 98 11/29/16 19:00 72 11/29/16 18:00 60 11/29/16 17:00 60 11/29/16 16:00 60 11/29/16 15:45 98.4 60 16 138/67 (90) 98 11/29/16 15:45 98.4 60 16 138/67 (90) 98 11/29/16 15:00 62 11/29/16 11:40 98.9 57 16 113/67 (82) 97 11/29/16 11:00 79 11/29/16 10:15 98 11/29/16 10:00 56 11/29/16 09:00 52 I/O 11/29/16 11/29/16 11/29/16 11/30/16 11/30/16 11/30/16 07:00 15:00 23:00 07:00 15:00 23:00 Intake Total 480 ml 480 ml 434 ml Output Total 1000 ml 400 ml 500 ml Balance -520 ml 80 ml -66 ml Intake Oral 480 ml 480 ml 240 ml IV Total 194 ml Output Urine Total 1000 ml 400 ml 500 ml # Bowel Movements 0 Result Diagram: 11/30/16 0500 11/30/16 0550 Other Results Laboratory Tests Test 11/30/16 05:00 11/30/16 05:50 White Blood Count 7.6 TH/MM3 Red Blood Count 3.71 MIL/MM3 Hemoglobin 12.5 GM/DL Hematocrit 37.3 % Mean Corpuscular Volume 100.6 FL Mean Corpuscular Hemoglobin 33.8 PG Mean Corpuscular Hemoglobin Concent 33.6 % Red Cell Distribution Width 15.2 % Platelet Count 226 TH/MM3 Mean Platelet Volume 8.0 FL Neutrophils (%) (Auto) 53.5 % Lymphocytes (%) (Auto) 36.3 % Monocytes (%) (Auto) 6.1 % Eosinophils (%) (Auto) 3.3 % Basophils (%) (Auto) 0.8 % Neutrophils # (Auto) 4.1 TH/MM3 Lymphocytes # (Auto) 2.8 TH/MM3 Monocytes # (Auto) 0.5 TH/MM3 Eosinophils # (Auto) 0.3 TH/MM3 Basophils # (Auto) 0.1 TH/MM3 CBC Comment DIFF FINAL Differential Comment Blood Urea Nitrogen 17 MG/DL Creatinine 0.56 MG/DL Random Glucose 84 MG/DL Calcium Level 8.6 MG/DL Sodium Level 140 MEQ/L Potassium Level 4.1 MEQ/L Chloride Level 105 MEQ/L Carbon Dioxide Level 25.5 MEQ/L Anion Gap 10 MEQ/L Estimat Glomerular Filtration Rate 112 ML/MIN Total Creatine Kinase 74 U/L Triglycerides Level 68 MG/DL Cholesterol Level 174 MG/DL LDL Cholesterol 96 MG/DL HDL Cholesterol 64.1 MG/DL Cholesterol/HDL Ratio 2.71 RATIO Imaging Last Impressions Myocardial Perfusion Scan Nuc Med 11/27/16 0600 Signed Impressions: Service Date/Time: Sunday, November 27, 2016 09:33 - CONCLUSION: An apparent small, 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 Very small focus of mild stress-induced ischemia in the lateral wall. Normal wall motion. RISK CATEGORY: Low to medium Rik Kunz MD Shoulder X-Ray 11/26/16 1145 Signed Impressions: Service Date/Time: Saturday, November 26, 2016 12:19 - CONCLUSION: No acute right shoulder abnormality is identified. There is acromioclavicular joint osteoarthritis. Rik Claudio MD Clavicle X-Ray 11/26/16 1140 Signed Impressions: Service Date/Time: Saturday, November 26, 2016 12:14 - CONCLUSION: Acromioclavicular joint osteoarthritis with overlying soft tissue swelling. No acute finding is identified. Rik Claudio MD Chest X-Ray 11/26/16 1144 Signed Impressions: Service Date/Time: Saturday, November 26, 2016 12:08 - CONCLUSION: No acute disease. Bulmaro Chacon Jr., MD Objective Remarks GENERAL: Awake alert and oriented talkative and cooperative SKIN: Warm and dry. No obvious rashes HEAD: Atraumatic. Normocephalic. EYES: Pupils equal and round. No scleral icterus. No injection or drainage. Extraocular muscles intact ENT: No nasal bleeding or discharge. Mucous membranes pink and moist. Tongue is midline NECK: Trachea midline. No JVD. Supple CARDIOVASCULAR: Regular rate and rhythm. S1-S2 no S3 or S4 no heave or thrill or rub or gallop RESPIRATORY: No accessory muscle use. Clear to auscultation. Breath sounds equal bilaterally. GASTROINTESTINAL: Abdomen soft, non-tender, nondistended. Hepatic and splenic margins not palpable. MUSCULOSKELETAL: Extremities without clubbing, cyanosis, or edema. No obvious deformities. RIGHT GROIN IS STABLE NEUROLOGICAL: Awake and alert. No obvious cranial nerve deficits. Motor grossly within normal limits. Five out of 5 muscle strength in the arms and legs. Normal speech. PSYCHIATRIC: Appropriate mood and affect; insight and judgment normal. Procedures None. Medications and IVs Current Medications Acetaminophen/ Hydrocodone Bitart ([place] 5-325 Mg) 2 tab ONCE ONCE PO Last administered on 11/26/16 12:41; Start 11/26/16 at 11:45; Stop 11/26/16 at 11:46 ; Status DC Sodium Chloride (NS Flush) 2 ml UNSCH PRN IVF FLUSH AFTER USING IV ACCESS; Start 11/26/16 at 12:15; Stop 11/26/16 at 13:48; Status DC Sodium Chloride (NS Flush) 2 ml UNSCH PRN IV FLUSH FLUSH AFTER USING IV ACCESS ; Start 11/26/16 at 13:45; Stop 11/29/16 at 13:46; Status DC Sodium Chloride (NS Flush) 2 ml BID IV FLUSH Last administered on 11/29/16 09: 08; Start 11/26/16 at 21:00; Stop 11/29/16 at 13:46; Status DC Acetaminophen (Tylenol) 500 mg Q4H PRN PO HEADACHE; Start 11/26/16 at 13:45; Stop 11/28/16 at 12:26; Status DC Acetaminophen/ Hydrocodone Bitart ([place] 7.5-325 Mg) 1 tab Q4H PRN PO PAIN SCALE 5 TO 10 Last administered on 11/30/16 04:43; Start 11/26/16 at 13:45 Morphine Sulfate (Morphine Inj) 2 mg Q4H PRN IV BREAKTHROUGH PAIN; Start at 13:45 Ondansetron HCl (Zofran Inj) 4 mg Q6H PRN IV NAUSEA; Start 11/26/16 at 13:45 Nitroglycerin (Nitrostat Sl) 0.4 mg Q5M PRN SL CHEST PAIN; Start 11/26/16 at 13 :45 Aspirin (Aspirin) 325 mg DAILY PO Last administered on 11/29/16 09:08; Start 11/26/16 at 14:00; Stop 11/29/16 at 13:46; Status DC Potassium Chloride (KCl) 30 meq ONCE ONCE PO Last administered on 11/26/16 15 :42; Start 11/26/16 at 15:00; Stop 11/26/16 at 15:01; Status DC Folic Acid (Folate) 1 mg DAILY PO Last administered on 11/30/16 08:23; Start 11/27/16 at 09:00; Stop 12/02/16 at 08:59 Thiamine HCl (Vitamin B1) 100 mg DAILY PO Last administered on 11/30/16 08:23 ; Start 11/27/16 at 09:00 Multivitamins/ Minerals Therapeutic (Theragran M Tab) 1 tab DAILY PO Last administered on 11/30/16 08:22; Start 11/27/16 at 09:00; Stop 12/02/16 at 08:59 Flumazenil (Romazicon Inj) 0.2 mg Q1M PRN IV PUSH SEE LABEL COMMENTS; Start at 14:00 Lorazepam (Ativan) 1 mg Q4H PRN PO CIWA 8 - 10 Last administered on 11/29/16 09:11; Start 11/26/16 at 14:00 Lorazepam (Ativan Inj) 1 mg Q4H PRN IV PUSH CIWA 8 - 10; Start 11/26/16 at 14: 00 Lorazepam (Ativan) 2 mg Q2H PRN PO CIWA 11-14; Start 11/26/16 at 14:00 Lorazepam (Ativan Inj) 2 mg Q2H PRN IV PUSH CIWA 11-14; Start 11/26/16 at 14:00 Lorazepam (Ativan Inj) 2 mg Q1H PRN IV PUSH CIWA 15-20; Start 11/26/16 at 14:00 Lorazepam (Ativan Inj) 2 mg Q15M PRN IV PUSH CIWA > 20; Start 11/26/16 at 14:00 Haloperidol Lactate (Haldol Inj) 2 mg Q15M PRN IM SEE LABEL COMMENTS; Start at 14:00 Acetaminophen (Tylenol) 650 mg Q4H PRN PO Headache, fever, pain 1-4; Start at 14:00 Naloxone HCl (Narcan Inj) 0.4 mg UNSCH PRN IV SEE LABEL COMMENTS; Start at 14:00 Senna/Docusate Sodium (Desiree-Colace) 1 tab BID PO Last administered on 08:23; Start 11/26/16 at 21:00 Magnesium Hydroxide (Milk Of Magnesia Liq) 30 ml Q12H PRN PO MILD - MODERATE CONSTIPATION; Start 11/26/16 at 14:00 Sennosides (Senokot) 17.2 mg Q12H PRN PO MODERATE - SEVERE CONSTIPATION; Start 11/26/16 at 14:00 Bisacodyl (Dulcolax Supp) 10 mg DAILY PRN RECTAL SEVERE CONSITIPATION; Start at 14:00 Lactulose (Lactulose Liq) 30 ml DAILY PRN PO SEVERE CONSITIPATION; Start at 14:00 Albuterol Sulfate (Albuterol Neb) 2.5 mg ONCE ONCE NEB Last administered on 17:57; Start 11/26/16 at 18:00; Stop 11/26/16 at 18:01; Status DC Albuterol Sulfate (Albuterol Neb) 2.5 mg Q2HR NEB PRN NEB sob or chest tightness; Start 11/26/16 at 17:30 Ibuprofen (Motrin) 400 mg Q6HR PO Last administered on 11/28/16 11:11; Start 11/26/16 at 18:00; Stop 11/28/16 at 11:55; Status DC Famotidine (Pepcid) 10 mg BID PO Last administered on 11/30/16 08:22; Start at 21:00 Miscellaneous (Pill Splitter) 1 ea UNSCH PRN OTHER SEE LABEL COMMENTS; Start at 17:45 Regadenoson (Lexiscan Inj) 0.4 mg STK-MED ONCE IV Last administered on 10:43; Start 11/27/16 at 10:43; Stop 11/27/16 at 10:44; Status DC Nitroglycerin (Nitroglycerin 2% Oint) 0.5 inch Q8HR TOPICAL Last administered on 11/30/16 06:23; Start 11/27/16 at 14:00 Metoprolol Tartrate (Lopressor) 12.5 mg Q12HR PO ; Start 11/27/16 at 21:00; Stop 11/27/16 at 21:00; Status DC Atorvastatin Calcium (Lipitor) 20 mg HS PO Last administered on 11/29/16 21:10 ; Start 11/28/16 at 21:00 Guaifenesin (Mucinex Er) 600 mg BID PO Last administered on 11/30/16 08:23; Start 11/29/16 at 21:00 Nicotine (Habitrol 14 Mg Patch.24 Hr) 1 patch ONCE ONCE T-DERMAL ; Start at 11:00; Stop 11/29/16 at 11:01; Status DC Nicotine (Habitrol 14 Mg Patch.24 Hr) 1 patch DAILY T-DERMAL Last administered on 11/30/16 08:22; Start 11/30/16 at 09:00 Miscellaneous Information 1 DAILY T-DERMAL ; Start 11/30/16 at 09:00 Heparin Sodium/ Sodium Chloride 1,000 ml @ As Directed STK-MED ONCE .ROUTE ; Start 11/29/16 at 12:08; Stop 11/29/16 at 12:09; Status DC Midazolam HCl (Versed Inj) 2 mg STK-MED ONCE .ROUTE ; Start 11/29/16 at 12:19; Stop 11/29/16 at 12:20; Status DC Heparin Sodium (Porcine) (Heparin Inj) 10,000 units STK-MED ONCE .ROUTE ; Start 11/29/16 at 12:34; Stop 11/29/16 at 12:35; Status DC Tirofiban/Sodium Chloride 250 ml @ As Directed STK-MED ONCE IV ; Start at 12:39; Stop 11/29/16 at 12:40; Status DC Clopidogrel Bisulfate (Plavix) 600 mg STK-MED ONCE .ROUTE ; Start 11/29/16 at 12 :59; Stop 11/29/16 at 13:00; Status DC Sodium Chloride (NS Flush) 2 ml UNSCH PRN .XX FLUSH AFTER USING IV ACCESS; Start 11/29/16 at 13:00 Sodium Chloride (NS Flush) 2 ml BID .XX Last administered on 11/29/16 21:00; Start 11/29/16 at 21:00 Aspirin (Aspirin Chew) 162 mg DAILY PO Last administered on 11/30/16 08:23; Start 11/30/16 at 09:00 Clopidogrel Bisulfate (Plavix) 600 mg ONCE ONCE PO ; Start 11/29/16 at 13:00; Stop 11/29/16 at 13:47; Status DC Clopidogrel Bisulfate (Plavix) 75 mg DAILY PO Last administered on 11/30/16 08 :23; Start 11/30/16 at 09:00 Tirofiban/Sodium Chloride 250 ml @ 10.026 mls/ hr Q24H IV ; Start 11/29/16 at 13:00; Stop 11/30/16 at 06:59; Status DC Miscellaneous Information 1 ONCE ONCE XX ; Start 11/29/16 at 13:00; Stop at 13:46; Status DC Bacitracin (Bacitracin Oint Packet) 0.9 gm ONCE ONCE TOP ; Start 11/29/16 at 13 :00; Stop 11/29/16 at 13:46; Status DC Urinary Catheter: No Vascular Central Line Catheter: No A/P Problem List: (1) Chest tightness ICD Code: R07.89 - Other chest pain (2) Tobacco abuse ICD Code: Z72.0 - Tobacco use (3) Alcohol intoxication ICD Code: F10.129 - Alcohol abuse with intoxication, unspecified Status: Acute Assessment and Plan This is a 55-year-old female with history of chronic right clavicle pain, tobacco and alcohol abuse. She presents with chest tightness for the last 48 hours. ER M.D. recommended hospitalization for chest pain rule out [place] protocol. Upon consultation, cardiology indicated the need for cardiac cath given patient's symptoms. - Chest pain - multiple risk factors for CAD including tobacco abuse and family history. - Abnormal nuclear stress test. - Cardiac cath today. IF clear, patient MAY be discharged home today. - Start Lipitor 20mg QHS. HAD STENT TO LAD DC TO HOME TODAY - Chronic pain - Acetaminophen, [place] and Morphine PRN. - Syncope - likely vasovagal. If syncope or near syncope, dizziness, lightheadedness occur again, we will obtain orthostatic BP - Alcohol abuse - Tobacco abuse - Patient has been counselled on abusing alcohol and tobacco. - Will stop Ibuprofen - pt has a history of alcohol abuse, currently on Aspirin 325mg and also being worked up for chest pain. - NSAIDs can cause both cardiac and GI adverse effects. NICODERM AND MVI, THIAMINE, FOLIC ACID Full code. SCDs. DC TO HOME FOLLOW UP WITH Sundeep Anderson DO Nov 30, 2016 08:49
[2016-11-30] MEDS ORDERED: NICOTINE 14 MG/24 HR PATCH T-DERMAL SCH (09:00)
[2016-11-30] MEDS: SODIUM CHLORIDE 0.9% FLUSH 10 ML FLUSH SCH (09:00)
[2016-11-30] MEDS ORDERED: ASPIRIN 81 MG CHEW TAB PO SCH (09:00)
[2016-11-30] MEDS ORDERED: CLOPIDOGREL 75 MG TAB PO SCH (09:00)
[2016-11-30] MEDS ORDERED: PLAV75TA29 PO (09:06)
[2016-11-30] MEDS ORDERED: ASPI81CH25 PO (09:06)
[2016-11-30] MEDS ORDERED: FAMO20TA2 PO (09:06)
[2016-11-30] MEDS ORDERED: VENTAER INH (09:06)
[2016-11-30] MEDS ORDERED: HYDR-3580 PO (09:06)
[2016-11-30] MEDS ORDERED: FOLI1TAB6 PO (09:06)
[2016-11-30] MEDS ORDERED: GNP100TA3 PO (09:06)
[2016-11-30] MEDS ORDERED: guaiFENesin ER PO (09:06)
[2016-11-30] MEDS ORDERED: THERM PO (09:06)
[2016-11-30] MEDS ORDERED: ATOR20TA15 PO (09:06)
[2016-11-30] MEDS ORDERED: NITR0.4S SL (09:06)
--- NOTE | 2016-11-30 09:11 | HHI.DS ---
Discharge Summary Admission Date Nov 26, 2016 at 13:43 Discharge Date: Nov 30, 2016 Admitting Diagnosis Chest Tightness, R Shoulder/Clavicle Pain, EtOH Intox (1) Chest tightness ICD Code: R07.89 - Other chest pain Diagnosis: Principal Status: Acute (2) Tobacco abuse ICD Code: Z72.0 - Tobacco use Diagnosis: Principal Status: Chronic (3) Alcohol intoxication ICD Code: F10.129 - Alcohol abuse with intoxication, unspecified Diagnosis: Secondary Status: Chronic (4) Unstable angina ICD Code: I20.0 - Unstable angina Diagnosis: Principal Status: Acute (5) Alcohol abuse with alcohol-induced mood disorder ICD Code: F10.14 - Alcohol abuse with alcohol-induced mood disorder Diagnosis: Principal Status: Chronic (6) GERD (gastroesophageal reflux disease) ICD Code: K21.9 - Gastro-esophageal reflux disease without esophagitis Diagnosis: Principal Status: Chronic (7) Hyperlipidemia ICD Code: E78.5 - Hyperlipidemia, unspecified Diagnosis: Secondary Status: Chronic (8) CAD (coronary artery disease) ICD Code: I25.10 - Atherosclerotic heart disease of [place] coronary artery without angina pectoris Diagnosis: Principal Status: Chronic Procedures CARDIAC CATH WITH STENT TO LAD STRESS TEST THAT WAS ABNORMAL Brief History - From Admission This is a 55-year-old female with history of chronic right clavicle pain, tobacco and alcohol abuse. States he has chronic right clavicle pain worse when she's working involving her right upper extremity. No history of trauma. She complains of constant chest tightness for the last 48 hours. It is not pleuritic. No radiation of pain, nausea, palpitations, diaphoresis, dizziness and shortness of breath. No history of CAD, DVT, PE, leg pain, swelling and recent immobilization. She has chronic nonproductive cough. She also reports of syncope yesterday while at work. States she was standing and vision just turned black for a few seconds. She then sat down on the floor denies fall and injuries. This happened 3 times. Today she just didn't feel well prompting ER visit. 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 Very small focus of mild stress-induced ischemia in the lateral wall. Normal wall motion. RISK CATEGORY: Low to medium Rik Kunz MD Shoulder X-Ray 11/26/16 1144 Signed Impressions: Service Date/Time: Saturday, November 26, 2016 12:19 - CONCLUSION: No acute right shoulder abnormality is identified. There is acromioclavicular joint osteoarthritis. Rik Claudio MD Clavicle X-Ray 11/26/16 1144 Signed Impressions: Service Date/Time: Saturday, November 26, 2016 12:14 - CONCLUSION: Acromioclavicular joint osteoarthritis with overlying soft tissue swelling. No acute finding is identified. Rik Claudio MD Chest X-Ray 11/26/16 1144 Signed Impressions: Service Date/Time: Saturday, November 26, 2016 12:08 - CONCLUSION: No acute disease. Bulmaro Chacon Jr., MD PE at Discharge GENERAL: Awake alert and oriented talkative and cooperative SKIN: Warm and dry. No obvious rashes HEAD: Atraumatic. Normocephalic. EYES: Pupils equal and round. No scleral icterus. No injection or drainage. Extraocular muscles intact ENT: No nasal bleeding or discharge. Mucous membranes pink and moist. Tongue is midline NECK: Trachea midline. No JVD. Supple CARDIOVASCULAR: Regular rate and rhythm. S1-S2 no S3 or S4 no heave or thrill or rub or gallop RESPIRATORY: No accessory muscle use. Clear to auscultation. Breath sounds equal bilaterally. GASTROINTESTINAL: Abdomen soft, non-tender, nondistended. Hepatic and splenic margins not palpable. MUSCULOSKELETAL: Extremities without clubbing, cyanosis, or edema. No obvious deformities. RIGHT GROIN IS STABLE NEUROLOGICAL: Awake and alert. No obvious cranial nerve deficits. Motor grossly within normal limits. Five out of 5 muscle strength in the arms and legs. Normal speech. PSYCHIATRIC: Appropriate mood and affect; insight and judgment normal. Hospital Course CAME INTO HOSPITAL HAD STRESS TEST THAT WAS POSITIVE UNDERWENT CARDIAC CATH WITH STENT TO LAD ON 11-[address] SALAS WANTS TO GO HOME TODAY Pt Condition on Discharge: Good Discharge Disposition: Discharge Home Discharge Time: > 30 minutes Discharge Instructions DIET: Follow Instructions for: Heart Healthy Diet Speech Therapy-Diet Recommends: Regular Activities you can perform: Shower Only-No Bath Activities to Avoid: Lifting/Bending, Weight Bearing, Strenuous Activity, Bathing, Sexual Activity Follow up Referrals: Cardiology - 1 Week with Robbie Salas MD PCP Follow-up - 1 Week New Medications: Albuterol 18 GM Inh (Ventolin Hfa 18 GM Inh) 90 Mcg/Act Aer 2 PUFF INH Q4-6H PRN for SHORTNESS OF BREATH, #1 INHALER 0 Refills Aspirin (Aspirin Low Strength) 81 Mg Chew 162 MG PO DAILY for Blood Clot Prevention, #60 EA 11 Refills Atorvastatin (Atorvastatin) 20 Mg Tab 20 MG PO HS for Cholesterol Management, #30 TAB 11 Refills Clopidogrel (Plavix) 75 Mg Tab 75 MG PO DAILY for Blood Clot Prevention, #30 TAB 11 Refills Famotidine (Famotidine) 20 Mg Tab 20 MG PO BID for Heartburn Management, #60 TAB Folic Acid (Folic Acid) 1 Mg Tablet 1 MG PO DAILY for Alcohol Detox, #30 TAB 11 Refills Hydrocodone-Acetaminophen (Hydrocodone-Acetaminophen) 7.5-325 mg Tab 1 TAB PO Q4H PRN for PAIN SCALE 5 TO 10, #20 TAB Multiple Vitamins W/ Minerals (Thera M Plus) 1 Tab 1 TAB PO DAILY for Alcohol Detox, #30 TAB Nitroglycerin SL (Nitrostat SL) 0.4 Mg Subl 0.4 MG SL Q5M PRN for CHEST PAIN, #100 TAB Thiamine HCl (Gnp Vitamin B-1) 100 Mg Tab 100 MG PO DAILY for Alcohol Detox, #30 TAB 11 Refills [guaiFENesin ER] () 600 MG TABCR 600 MG PO BID for Cough, #60 TAB Sundeep Talavera DO Nov 30, 2016 09:11
--- NOTE | 2016-11-30 13:13 | EKG ---
Date Performed: 11/30/2016 Time Performed: 05:43:34 PTAGE: 55 years EKG: Sinus bradycardia Normal ECG except for rate PREVIOUS TRACING : 11/29/2016 21.04 Compared to prior tracing no significant change DOCTOR: Marie Doshi Interpretating Date/Time 11/30/2016 13:12:23
--- NOTE | 2016-11-30 13:14 | EKG ---
Date Performed: 11/29/2016 Time Performed: 21:04:26 PTAGE: 55 years EKG: Sinus rhythm Normal ECG PREVIOUS TRACING : 11/26/2016 18.17 Compared to prior tracing no significant change DOCTOR: Marie Doshi Interpretating Date/Time 11/30/2016 13:12:32
--- NOTE | 2016-11-30 16:42 | MA ---
cc: OLIVIA SALAS M.D. DATE: 11/29/2016 PROCEDURE PERFORMED: 1. Left heart catheterization. 2. Coronary angiography. 3. Left ventriculography. 4. PCI bare metal stent of the mid LAD. INDICATION: 1. Unstable angina. 2. [place] [employer], class IV angina. Intermediate risk. 3. Nuclear stress test 4. Coronary artery disease. 5. Tobacco use. 6. Rheumatoid arthritis. Systemic inflammatory condition. PROCEDURE: The patient was brought to the Cardiac Catheterization Laboratory, prepped and draped in the usual sterile fashion. 10 cc of 1% lidocaine was used to locally anesthetize the right common femoral artery. A 4 Brazilian sheath was successfully placed in the right common femoral artery. 4 Brazilian JR4 and JL4 catheters were used to perform left and right coronary angiography and left ventriculography. FINDINGS: LV pressure is 110/5/7, ejection fraction 60%. The right coronary artery is non-dominant and has mild disease up to 10% in the proximal segment. The left main coronary artery has no significant disease angiographically. The left circumflex vessel is a dominant vessel. It gives off a small left PDA, however. The first obtuse marginal vessel is a small 1 millimeter vessel with an ostial 70% stenosis. The second obtuse marginal vessel is a large vessel, probably 3-0 to 3-5 with mild diffuse disease in the proximal segment, up to 10 to 20% angiographically. The mid AV groove left circumflex vessel has mild diffuse disease up to 20 to 30% angiographically. The LAD is a large transapical vessel with the transapical segment supplying the distal 1/3 of the inferior apical wall. There is 80% stenosis in the mid LAD. The 6 Brazilian sheath was exchanged for the 4 Brazilian sheath, 70 units per kilo of heparin was given, initial ACT of 204. An addition 1000 units of heparin was given. Final ACT was pending at the time of dictation. A 6 Brazilian XP 3.0 guide, 0.014 [place] guide wire was placed into the distal LAD. A 309 Integrity stent was delivered to the lesion site, deployed with one inflation of 13 atmospheres. Note: It took at least 13 atmospheres to get a symmetric deployment of the distal stent. I did not want to go to higher atmospheres as I was concerned about vessel injury, even though the distal stent was not as well deployed as the proximal stent, it did appear to be adequately deployed. The patient was sedated with 2 milligrams of Versed and was asleep during the procedure. Therefore I cannot assess her symptoms to balloon inflation. CONCLUSIONS: 1. Unstable angina. [place] [employer], class IV angina, intermediate nuclear stress test, 80% stenosis of a mid LAD as detailed above. 2. Otherwise mild to moderate three vessel coronary disease in a left dominant system. 3. Normal LV systolic function, ejection fraction 60%. 4. Successful PCI bare metal stent of the mid LAD from 80% to 0% with MANSI-3 flow. 5. Recommend aspirin 162 milligrams daily, Plavix 600 milligrams p.o. load and then 75 milligrams a day for 12 to 15 months, Aggrastat drip, strongly recommend smoking cessation and treat guideline parameters. MD CASPER Courtney/JANETH /12:55 PM /4:00 PM
== END 2016-11-30 11:35 | disposition home or self-care (01) ==
LOC: PHED 11:29 → PHEDA 13:43 → PH3B 16:53 → HCIS 11-27 18:40
PROVIDERS: ADMIT Hospitalist; ATTEND Hospitalist
DX: I25.110 Atherosclerotic heart disease of native coronary artery with unstable angina pectoris (principal); F10.129 Alcohol abuse with intoxication, unspecified; E87.6 Hypokalemia; R55 Syncope and collapse; K21.9 Gastro-esophageal reflux disease without esophagitis; G89.29 Other chronic pain; E78.5 Hyperlipidemia, unspecified; F17.210 Nicotine dependence, cigarettes, uncomplicated
CPT/HCPCS: 71010; 73000; 73030; 78452; 80048; 80061; 80307; 82550; 82552; 82948; 83735; 84484; 85002; 85025; 92928; 93005; 93017; 93458; 94664; 99285; A9502; C1769; C1874; C1876; C1887; C1893; G0378; J1644; J2250; J2785; J3246; J7613; 85347; Q9967

== ENCOUNTER 2016-12-25 08:41 | Inpatient (IN) | payer SELFPAY ==
[~2016-12-25] VITALS: Ht 167.6 cm; Wt 56.5 kg
[2016-12-25] VITALS (10 sets, daily range): BP systolic 137–174; BP diastolic 66–81; PULSE 57–106; RESP 16–24; TEMP 98.6–98.9; O2SAT 97–100
[~2016-12-25 08:41] MED LIST changes: +ASPI81CH25 PO; +ATOR20TA15 PO; -CLON.5 PO; +FAMO20TA2 PO; -FOLI1TAB4 PO; +FOLI1TAB6 PO; +GNP100TA3 PO; +HYDR-3580 PO; -MECL-62 PO; +NITR0.4S SL; +PLAV75TA29 PO; -RANI150T PO; +THERM PO; +VENTAER INH; -VITA100T2 PO; +guaiFENesin ER PO
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
[2016-12-25] MEDS ORDERED: METOPROLOL TARTRATE 25 MG TAB PO ONE (09:30)
[2016-12-25] MEDS ORDERED: SODIUM CHLORIDE 0.9% FLUSH 10 ML FLUSH IVF PRN (09:30)
[2016-12-25] MEDS ORDERED: ASPIRIN 81 MG CHEW TAB CHEW ONE (09:30)
[2016-12-25 10:06] LABS: AUTOMATED NEUTROPHIL # 7.5 TH/MM3 (1.8-7.7); BASOPHIL # 0.1 TH/MM3 (0-0.2); BASOPHIL % 0.9 % (0.0-2.0); EOSINOPHIL % 0.2 % (0.0-4.0); HEMATOCRIT 37.9 % (35.0-46.0); HEMO FLAGS DIFF FINAL; LYMPH % 19.6 % (9.0-44.0); LYMPHOCYTE # 2.1 TH/MM3 (1.0-4.8); MEAN CELL VOLUME 99.5 FL (80.0-100.0); MEAN CORPUSCULAR HEMOGLOBIN 34.5 PG (27.0-34.0); MEAN CORPUSCULAR HGB CONC 34.7 % (32.0-36.0); MONO % 7.9 % (0.0-8.0); NEUT % 71.4 % (16.0-70.0); PLATELET COUNT 254 TH/MM3 (150-450); RED BLOOD COUNT 3.81 MIL/MM3 (4.00-5.30); RED CELL DISTRIBUTION WIDTH 14.7 % (11.6-17.2); WHITE BLOOD COUNT 10.5 TH/MM3 (4.0-11.0)
[2016-12-25 10:16] LABS: INTERNATIONAL NORMALIZED RATIO 0.9 RATIO
[2016-12-25 10:29] LABS: ANION GAP 12 MEQ/L (5-15); BICARBONATE 25.4 MEQ/L (21.0-32.0); CHLORIDE 97 MEQ/L (98-107); GLOMERULAR FILTRATION RATE 76 ML/MIN (>89); MAGNESIUM 2.1 MG/DL (1.5-2.5); SODIUM (NA) 134 MEQ/L (136-145)
[2016-12-25 10:35] LABS: BLOOD UREA NITROGEN 19 MG/DL (7-18); CREATINE KINASE 162 U/L (26-192)
[2016-12-25 10:47] LABS: CKMB 3.7 NG/ML (0.5-3.6)
--- NOTE | 2016-12-25 11:10 | RADRPT ---
EXAM DATE/TIME: 12/25/2016 10:34 [place] COMPARISON: CHEST SINGLE AP, November 26, 2016, 12:08. INDICATIONS : Chest pain and tightness. MEDICAL HISTORY : None. SURGICAL HISTORY : Cardiac stent. ENCOUNTER: Initial ACUITY: 1 day PAIN SCORE: 4/10 LOCATION: chest FINDINGS: Portable AP view of the chest demonstrates a normal-sized cardiac silhouette. No effusion, consolidat ion, or pneumothorax is visualized. The bones and soft tissues demonstrate no acute abnormality. EKG lines overlie the patient. CONCLUSION: No acute cardiopulmonary abnormality is identified. Rik Claudio MD on December 25, 2016 at 11:08 Board Certified Radiologist. This report was verified electronically.
[2016-12-25] MEDS ORDERED: HEPARIN SODIUM - IV 10,000 UNITS/10 ML VIAL IV ONE (11:15)
[2016-12-25] MEDS ORDERED: NITROGLYCERIN-D5W 50 MG/250 ML 250 ML IV PRN (11:15)
[2016-12-25] MEDS ORDERED: ACETAMINOPHEN 325 MG TAB PO PRN ×2 (11:30)
[2016-12-25] MEDS ORDERED: LACTULOSE SYRUP 20 GM/30 ML CUP PO PRN (11:30)
[2016-12-25] MEDS ORDERED: ONDANSETRON HCL 4 MG/2 ML VIAL IVP PRN (11:30)
[2016-12-25] MEDS ORDERED: SENNOSIDES 8.6 MG TAB PO PRN (11:30)
[2016-12-25] MEDS ORDERED: MAGNESIUM HYDROXIDE SUSP 30 ML CUP PO PRN (11:30)
[2016-12-25] MEDS ORDERED: MORPHINE SULFATE 4 MG/ML INJ IV PUSH PRN (11:30)
[2016-12-25] MEDS ORDERED: NALOXONE HCL 0.4 MG/ML AMP IV PUSH PRN (11:30)
[2016-12-25] MEDS ORDERED: BISACODYL 10 MG SUPP RECTAL PRN (11:30)
[2016-12-25] MEDS: HEPARIN-D5W 25,000 U/250 ML 250 ML IV PRN (11:45)
[2016-12-25] MEDS: SODIUM CHLOR 0.9% 1000 ML INJ 1,000 ML IV SCH (11:46)
[2016-12-25 12:41] LABS: HEMATOCRIT 38.6 % (35.0-46.0); MEAN CORPUSCULAR HEMOGLOBIN 33.9 PG (27.0-34.0); MEAN CORPUSCULAR HGB CONC 33.9 % (32.0-36.0); PLATELET COUNT 249 TH/MM3 (150-450); RED BLOOD COUNT 3.86 MIL/MM3 (4.00-5.30); RED CELL DISTRIBUTION WIDTH 14.8 % (11.6-17.2); REVIEW FLAG FINAL; WHITE BLOOD COUNT 11.6 TH/MM3 (4.0-11.0)
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
[2016-12-25 12:49] LABS: APTT (PATIENT) 23.6 SEC (24.3-30.1)
[2016-12-25] MEDS ORDERED: GLUCAGON 1 MG/ML VIAL OTHER PRN (16:45)
[2016-12-25] MEDS ORDERED: DEXTROSE 50% IN WATER 50 ML VIAL(D50) IV PUSH PRN (16:45)
[2016-12-25] MEDS ORDERED: HEPARIN SODIUM - IV 10,000 UNITS/10 ML VIAL IV PRN ×2 (17:15)
[2016-12-25] MEDS ORDERED: CLOPIDOGREL 75 MG TAB PO ONE (18:00)
--- NOTE | 2016-12-25 18:21 | MB ---
cc: OLIVIA SALAS M.D. DATE OF CONSULTATION: 12/25/2016. HISTORY OF PRESENT ILLNESS: Clement is a very pleasant 56-year-old lady with history of coronary artery disease status post percutaneous coronary intervention by myself in November. She was sent home on aspirin and Plavix but has been noncompliant with both per the emergency room notes, she last took aspirin and Plavix two days ago. She is still smoking. She presented with a chief complaint of chest pain which started this morning. The chest pain is described as squeezing. She otherwise denies any fevers, chills, cough, GI or bleeding, paroxysmal nocturnal dyspnea, orthopnea, syncope or dizziness. PAST MEDICAL HISTORY: The past medical history is as per the history of present illness. 1. She has a history of arthritis. 2. Ovarian cyst. 3. Appendectomy. SOCIAL HISTORY: She drinks a pint of vodka daily. She smokes half a pack of cigarettes a day. ALLERGIES: NONE. MEDICATIONS PRIOR TO ADMISSION: 1. Ventolin. 2. Hydrocodone. 3. Nitrostat. 4. Multiple vitamins: ____ vitamin, B1, folic acid. 5. Famotidine. 6. Aspirin 81 milligrams daily. 7. Atorvastatin 20 at bedtime. 8. Plavix 75 daily. MEDICATIONS IN THE HOSPITAL: 1. Heparin drip per protocol. 2. Aspirin 162 x1. 3. Metoprolol 25 milligrams x1. PHYSICAL EXAMINATION: VITAL SIGNS: Blood pressure 156/80, pulse 78, temperature not recorded, respiratory rate 18. GENERAL: She is alert and oriented times three and in no acute distress. NECK: The neck is supple. No jugular venous distention. No bruits. CARDIOVASCULAR EXAM: S1-S2. No murmurs, rubs or gallops. LUNGS: Clear to auscultation bilaterally. ABDOMEN: The abdomen is soft, nontender and nondistended with positive bowel sounds. EXTREMITIES: No lower extremity edema. LABS: White count 11.6, hemoglobin 13.1, hematocrit is 38.6. MCV is 100. Platelet count is 249,000. INR is 0.9. Sodium 134, potassium 4.0, chloride 97, BUN 19, creatinine 0.78. Troponin is 0.20 followed by 0.16. Glucose 177. IMAGING STUDIES: Chest x-ray shows no acute cardiopulmonary abnormalities identified. EKGS: EKG shows normal sinus rhythm and otherwise normal. DIAGNOSES: She has the following diagnoses: 1. NSTEMI. 2. Coronary artery disease. 3. Tobacco abuse. 4. Alcohol abuse. 5. Medical noncompliance. 6. Hypertension. 7. Hyperglycemia. 8. Hyponatremia. 9. Elevated white count. RECOMMENDATIONS AND PLAN: 1. NSTEMI: A. Continue heparin drip. B. Will also continue aspirin 162 milligrams daily. C. Reload with Plavix 300 milligrams and then 75 milligrams daily. D. Re-start Lipitor 20 at bedtime. E. Strongly recommend tobacco cessation and alcohol abstinence. F. Also start Lopressor 25 milligrams q. 6 hours. Plan for heart catheterization on Tuesday, December 27. G. I have strongly counselled her and advised her to stop smoking and to abstain from alcohol and to be compliant with her medications. The patient voices understanding and agrees. MD CASPER Courtney/JCC /5:54 PM /6:01 PM
[2016-12-25] MEDS: ATORVASTATIN 20 MG TAB PO SCH (19:54)
[2016-12-25] MEDS: DOCUSATE SODIUM 50 MG/SENNA 8.6 MG TAB PO SCH (19:54)
[2016-12-25] MEDS ORDERED: CHLORHEXIDINE GLUCONATE 2 % 1 PACK (2 CLOTHS)(extra cloths) TOPICAL PRN (21:00)
[2016-12-25] MEDS: INSULIN ASPART SUPPLEMENTAL SCALE SQ SCH ×2 (21:00→22:35)
[2016-12-25] MEDS: METOPROLOL TARTRATE 25 MG TAB PO SCH (21:07)
[2016-12-26] VITALS (10 sets, daily range): BP systolic 123–159; BP diastolic 58–86; PULSE 51–79; RESP 15–33; TEMP 98.1–98.5; O2SAT 96–99
[2016-12-26] MEDS ORDERED: CHLORHEXIDINE GLUCONATE 2 % 1 PACK (2 CLOTHS)(taper/protocol) TOPICAL SCH (04:00)
[2016-12-26] MEDS: SODIUM CHLOR 0.9% 1000 ML INJ 1,000 ML IV SCH ×2 (04:25→16:02)
[2016-12-26 04:41] LABS: AUTOMATED NEUTROPHIL # 3.9 TH/MM3 (1.8-7.7); BASOPHIL # 0.1 TH/MM3 (0-0.2); BASOPHIL % 1.3 % (0.0-2.0); EOSINOPHIL # 0.2 TH/MM3 (0-0.4); EOSINOPHIL % 3.5 % (0.0-4.0); HEMATOCRIT 37.2 % (35.0-46.0); HEMO FLAGS DIFF FINAL; LYMPH % 31.4 % (9.0-44.0); LYMPHOCYTE # 2.1 TH/MM3 (1.0-4.8); MEAN CELL VOLUME 100.8 FL (80.0-100.0); MEAN CORPUSCULAR HEMOGLOBIN 33.9 PG (27.0-34.0); MEAN CORPUSCULAR HGB CONC 33.7 % (32.0-36.0); MONO % 5.9 % (0.0-8.0); NEUT % 57.9 % (16.0-70.0); PLATELET COUNT 211 TH/MM3 (150-450); RED BLOOD COUNT 3.69 MIL/MM3 (4.00-5.30); RED CELL DISTRIBUTION WIDTH 14.7 % (11.6-17.2); WHITE BLOOD COUNT 6.8 TH/MM3 (4.0-11.0)
[2016-12-26 04:56] LABS: ALKALINE PHOSPHATASE 40 U/L (45-117); ALT (GPT) 44 U/L (10-53); ANION GAP 6 MEQ/L (5-15); AST (GOT) 66 U/L (15-37); BICARBONATE 28.5 MEQ/L (21.0-32.0); BLOOD UREA NITROGEN 13 MG/DL (7-18); CHLORIDE 104 MEQ/L (98-107); GLOMERULAR FILTRATION RATE 105 ML/MIN (>89); SODIUM (NA) 138 MEQ/L (136-145); TOTAL BILIRUBIN ADULT 1.2 MG/DL (0.2-1.0)
[2016-12-26 04:58] LABS: APTT (PATIENT) 41.3 SEC (24.3-30.1)
[2016-12-26] MEDS: METOPROLOL TARTRATE 25 MG TAB PO SCH ×3 (06:00→20:40)
[2016-12-26] MEDS: INSULIN ASPART SUPPLEMENTAL SCALE SQ SCH ×4 (08:00→21:00)
--- NOTE | 2016-12-26 08:41 | HHI.PR ---
Subjective Remarks Follow up NSTEMI. Chest pain has resolved. Denies dyspnea, nausea, vomiting. No complaints at this time. Objective Vitals Vital Signs Date Time Temp Pulse Resp B/P (MAP) Pulse Ox O2 Delivery O2 Flow Rate FiO2 12/26/16 06:00 51 12/26/16 04:00 66 12/26/16 04:00 98.2 51 15 134/82 (99) 96 12/26/16 02:00 57 12/26/16 00:00 98.4 61 20 148/86 (106) 99 12/26/16 00:00 61 12/25/16 22:00 57 12/25/16 20:00 98.6 65 16 137/66 (89) 12/25/16 20:00 65 12/25/16 20:00 65 137/66 12/25/16 18:00 70 12/25/16 16:00 58 12/25/16 16:00 98.8 58 19 151/67 (95) 97 12/25/16 14:00 67 12/25/16 13:00 98.9 66 24 153/68 (96) 97 12/25/16 13:00 66 12/25/16 12:15 12/25/16 11:45 78 156/80 12/25/16 11:36 100 21 12/25/16 10:19 78 18 159/71 (100) 98 Room Air 12/25/16 09:37 174/81 (112) 12/25/16 09:10 94 16 100 Room Air 12/25/16 08:42 98.6 106 20 150/72 (98) 99 Room Air I/O 12/25/16 12/25/16 12/25/16 12/26/16 12/26/16 12/26/16 07:00 15:00 23:00 07:00 15:00 23:00 Intake Total 1480 ml Output Total 425 ml 400 ml Balance -425 ml 1080 ml Intake Oral 480 ml IV Total 1000 ml Output Urine Total 425 ml 400 ml # Voids 2 2 # Bowel Movements 0 Result Diagram: 12/26/16 0142 12/26/16 0425 Imaging Last Impressions Chest X-Ray 12/25/16 0920 Signed Impressions: Service Date/Time: Sunday, December 25, 2016 10:34 - CONCLUSION: No acute cardiopulmonary abnormality is identified. Rik Claudio MD Objective Remarks General: No acute distress. Heart: Regular rate and rhythm. No murmur. Lungs: Clear to auscultation bilaterally. No wheezes, rales, or rhonchi. Breathing is nonlabored. Abdomen: Soft, nontender, nondistended. Extremities: No lower extremity edema. Psych: Alert and oriented. Procedures None Urinary Catheter: No Vascular Central Line Catheter: No A/P Problem List: (1) Non-STEMI (non-ST elevated myocardial infarction) ICD Code: I21.4 - Non-ST elevation (NSTEMI) myocardial infarction Status: Acute (2) Chest tightness ICD Code: R07.89 - Other chest pain Status: Acute (3) CAD (coronary artery disease) ICD Code: I25.10 - Atherosclerotic heart disease of [place] coronary artery without angina pectoris Status: Chronic (4) Hypertension ICD Code: I10 - Essential (primary) hypertension Status: Chronic (5) Hyperlipidemia ICD Code: E78.5 - Hyperlipidemia, unspecified Status: Chronic (6) Tobacco abuse ICD Code: Z72.0 - Tobacco use Status: Chronic Assessment and Plan 1. NSTEMI: Troponins are mildly elevated. Chest pain has resolved. Appreciate cardiology recommendations. Patient still on nitroglycerin and heparin drips. Planning for cardiac catheterization tomorrow. Continue aspirin, Plavix, beta vivian, statin. 2. Hypertension: Continue metoprolol. 3. Tobacco abuse: Counseled quit smoking. 4. History of alcohol abuse: No signs of withdrawal at this time. 5. DVT prophylaxis: Heparin drip. Kenan Haley MD Dec 26, 2016 08:41
[2016-12-26] MEDS: ASPIRIN EC 81 MG TABEC PO SCH (08:52)
[2016-12-26] MEDS: CLOPIDOGREL 75 MG TAB PO SCH (08:52)
[2016-12-26] MEDS: DOCUSATE SODIUM 50 MG/SENNA 8.6 MG TAB PO SCH ×2 (08:52→20:40)
--- NOTE | 2016-12-26 11:05 | PD.CARD.PN ---
Subjective Subjective Remarks alert in nad, denies chest pain Objective Vital Signs / I&O Vital Signs Date Time Temp Pulse Resp B/P (MAP) Pulse Ox O2 Delivery O2 Flow Rate FiO2 12/26/16 07:40 96 21 12/26/16 06:00 51 12/26/16 04:00 66 12/26/16 04:00 98.2 51 15 134/82 (99) 96 12/26/16 02:00 57 12/26/16 00:00 98.4 61 20 148/86 (106) 99 12/26/16 00:00 61 12/25/16 22:00 57 12/25/16 20:00 98.6 65 16 137/66 (89) 12/25/16 20:00 65 12/25/16 20:00 65 137/66 12/25/16 18:00 70 12/25/16 16:00 58 12/25/16 16:00 98.8 58 19 151/67 (95) 97 12/25/16 14:00 67 12/25/16 13:00 98.9 66 24 153/68 (96) 97 12/25/16 13:00 66 12/25/16 12:15 12/25/16 11:45 78 156/80 12/25/16 11:36 100 21 I/O 12/25/16 12/25/16 12/25/16 12/26/16 12/26/16 12/26/16 07:00 15:00 23:00 07:00 15:00 23:00 Intake Total 1480 ml Output Total 425 ml 400 ml Balance -425 ml 1080 ml Intake Oral 480 ml IV Total 1000 ml Output Urine Total 425 ml 400 ml # Voids 2 2 # Bowel Movements 0 Physical Exam GENERAL: SKIN: Warm and dry. HEAD: Normocephalic. EYES: No scleral icterus. No injection or drainage. NECK: Supple, trachea midline. No JVD or lymphadenopathy. CARDIOVASCULAR: Regular rate and rhythm without murmurs, gallops, or rubs. RESPIRATORY: Breath sounds equal bilaterally. No accessory muscle use. GASTROINTESTINAL: Abdomen soft, non-tender, nondistended. MUSCULOSKELETAL: No cyanosis, or edema. BACK: Nontender without obvious deformity. No CVA tenderness. Laboratory Laboratory Tests Test 12/25/16 11:25 12/25/16 12:50 12/25/16 16:13 12/25/16 18:24 White Blood Count 11.6 TH/MM3 Red Blood Count 3.86 MIL/MM3 Hemoglobin 13.1 GM/DL Hematocrit 38.6 % Mean Corpuscular Volume 100.0 FL Mean Corpuscular Hemoglobin 33.9 PG Mean Corpuscular Hemoglobin Concent 33.9 % Red Cell Distribution Width 14.8 % Platelet Count 249 TH/MM3 Mean Platelet Volume 7.4 FL Activated Partial Thromboplast Time 23.6 SEC 35.0 SEC Nasal Screen MRSA (PCR) MRSA NOT DETECTED Total Creatine Kinase 166 U/L Troponin I 0.16 NG/ML Test 12/25/16 22:36 12/26/16 01:42 12/26/16 04:25 Total Creatine Kinase 169 U/L Troponin I 0.14 NG/ML White Blood Count 6.8 TH/MM3 Red Blood Count 3.69 MIL/MM3 Hemoglobin 12.5 GM/DL Hematocrit 37.2 % Mean Corpuscular Volume 100.8 FL Mean Corpuscular Hemoglobin 33.9 PG Mean Corpuscular Hemoglobin Concent 33.7 % Red Cell Distribution Width 14.7 % Platelet Count 211 TH/MM3 Mean Platelet Volume 7.2 FL Neutrophils (%) (Auto) 57.9 % Lymphocytes (%) (Auto) 31.4 % Monocytes (%) (Auto) 5.9 % Eosinophils (%) (Auto) 3.5 % Basophils (%) (Auto) 1.3 % Neutrophils # (Auto) 3.9 TH/MM3 Lymphocytes # (Auto) 2.1 TH/MM3 Monocytes # (Auto) 0.4 TH/MM3 Eosinophils # (Auto) 0.2 TH/MM3 Basophils # (Auto) 0.1 TH/MM3 CBC Comment DIFF FINAL Differential Comment Activated Partial Thromboplast Time 41.3 SEC Blood Urea Nitrogen 13 MG/DL Creatinine 0.59 MG/DL Random Glucose 84 MG/DL Total Protein 6.0 GM/DL Albumin 3.5 GM/DL Calcium Level 8.3 MG/DL Alkaline Phosphatase 40 U/L Aspartate Amino Transf (AST/SGOT) 66 U/L Alanine Aminotransferase (ALT/SGPT) 44 U/L Total Bilirubin 1.2 MG/DL Sodium Level 138 MEQ/L Potassium Level 4.0 MEQ/L Chloride Level 104 MEQ/L Carbon Dioxide Level 28.5 MEQ/L Anion Gap 6 MEQ/L Estimat Glomerular Filtration Rate 105 ML/MIN Assessment and Plan Problem List: (1) Non-STEMI (non-ST elevated myocardial infarction) ICD Codes: I21.4 - Non-ST elevation (NSTEMI) myocardial infarction Status: Acute (2) CAD (coronary artery disease) ICD Codes: I25.10 - Atherosclerotic heart disease of [place] coronary artery without angina pectoris Status: Chronic (3) Tobacco abuse ICD Codes: Z72.0 - Tobacco use Status: Chronic (4) Hyperlipidemia ICD Codes: E78.5 - Hyperlipidemia, unspecified Status: Chronic (5) Hypertension ICD Codes: I10 - Essential (primary) hypertension Status: Chronic Assessment and Plan 1. ) NSTEMI - assymptomatic, cpntinue dapt, iv hep, loprerssor, lipitor, lhc Robbie Patterson MD Dec 26, 2016 11:05
[2016-12-26] MEDS ORDERED: RAMIPRIL 2.5 MG CAP PO ONE (11:15)
[2016-12-26 13:17] LABS: APTT (PATIENT) 35.1 SEC (24.3-30.1)
--- NOTE | 2016-12-26 13:47 | EKG ---
Date Performed: 12/25/2016 Time Performed: 09:16:38 PTAGE: 56 years EKG: Sinus rhythm Compared to prior tracing no significant change NORMAL ECG PREVIOUS TRACING : 11/30/2016 05.43 DOCTOR: Thong Aragon Interpretating Date/Time 12/26/2016 13:46:59
--- NOTE | 2016-12-26 13:48 | EKG ---
Date Performed: 12/25/2016 Time Performed: 20:57:52 PTAGE: 56 years EKG: SINUS BRADYCARDIA WITH SINUS ARRHYTHMIA Compared to previous tracing, sinus arrhythmia is n ew BORDERLINE ECG PREVIOUS TRACING : 12/25/2016 09.16 DOCTOR: Thong Aragon Interpretating Date/Time 12/26/2016 13:47:15
[2016-12-26] MEDS: ATORVASTATIN 20 MG TAB PO SCH (20:40)
[2016-12-26] MEDS: HEPARIN-D5W 25,000 U/250 ML 250 ML IV PRN (20:43)
[2016-12-26 21:29] LABS: APTT (PATIENT) 37.9 SEC (24.3-30.1)
[2016-12-27] VITALS (20 sets, daily range): BP systolic 108–168; BP diastolic 56–81; PULSE 45–85; RESP 14–48; TEMP 97.9–98.4; O2SAT 98–100
[2016-12-27 02:18] LABS: MEAN CELL VOLUME 101.5 FL (80.0-100.0); MEAN CORPUSCULAR HEMOGLOBIN 33.5 PG (27.0-34.0); PLATELET COUNT 199 TH/MM3 (150-450); RED BLOOD COUNT 3.55 MIL/MM3 (4.00-5.30); RED CELL DISTRIBUTION WIDTH 14.8 % (11.6-17.2); REVIEW FLAG FINAL; WHITE BLOOD COUNT 4.5 TH/MM3 (4.0-11.0)
[2016-12-27 02:27] LABS: APTT (PATIENT) 44.3 SEC (24.3-30.1)
[2016-12-27 02:39] LABS: BICARBONATE 28.6 MEQ/L (21.0-32.0); MAGNESIUM 1.9 MG/DL (1.5-2.5)
[2016-12-27] MEDS: METOPROLOL TARTRATE 25 MG TAB PO SCH ×3 (06:00→21:04)
[2016-12-27] MEDS: INSULIN ASPART SUPPLEMENTAL SCALE SQ SCH ×4 (08:00→21:00)
[2016-12-27] MEDS: DOCUSATE SODIUM 50 MG/SENNA 8.6 MG TAB PO SCH ×2 (08:46→21:00)
[2016-12-27] MEDS: RAMIPRIL 2.5 MG CAP PO SCH (08:46)
[2016-12-27] MEDS: CLOPIDOGREL 75 MG TAB PO SCH (08:46)
[2016-12-27] MEDS: ASPIRIN EC 81 MG TABEC PO SCH (08:46)
[2016-12-27] MEDS: MORPHINE SULFATE 4 MG/ML INJ IV PUSH PRN ×2 (08:47→17:39)
--- NOTE | 2016-12-27 09:53 | HHI.PR ---
Subjective Remarks Follow up NSTEMI. Scheduled for cath today. No chest pain, dyspnea. Hopes to go home soon. Objective Vitals Vital Signs Date Time Temp Pulse Resp B/P (MAP) Pulse Ox O2 Delivery O2 Flow Rate FiO2 12/27/16 09:00 85 48 12/27/16 09:00 85 12/27/16 08:00 98.4 52 16 108/56 (73) 98 12/27/16 08:00 50 12/27/16 07:00 55 12/27/16 07:00 55 16 126/61 (82) 98 12/27/16 04:00 98.0 52 16 108/56 (73) 98 12/27/16 04:00 52 12/27/16 00:00 98.2 62 19 116/60 (78) 98 12/27/16 00:00 62 12/26/16 20:00 98.5 60 20 123/60 (81) 98 12/26/16 20:00 60 12/26/16 16:00 98.1 79 24 131/69 (89) 99 12/26/16 16:00 79 12/26/16 12:00 98.5 64 18 127/58 (81) 99 12/26/16 12:00 64 12/26/16 10:00 64 I/O 12/26/16 12/26/16 12/26/16 12/27/16 12/27/16 12/27/16 07:00 15:00 23:00 07:00 15:00 23:00 Intake Total 1480 ml 700 ml 240 ml Output Total 400 ml 600 ml Balance 1080 ml 700 ml -360 ml Intake Oral 480 ml 450 ml 240 ml IV Total 1000 ml 250 ml Output Urine Total 400 ml 600 ml # Voids 2 5 # Bowel Movements 1 Result Diagram: 12/27/1614512/27/16 014 Imaging Last Impressions Chest X-Ray 12/25/16919 Signed Impressions: Service Date/Time: Sunday, December 25, 2016 10:34 - CONCLUSION: No acute cardiopulmonary abnormality is identified. Rik Claudio MD Objective Remarks General: No acute distress. Heart: Regular rate and rhythm. No murmur. Lungs: Clear to auscultation bilaterally. No wheezes, rales, or rhonchi. Breathing is nonlabored. Abdomen: Soft, nontender, nondistended. Extremities: No lower extremity edema. Psych: Alert and oriented. Procedures None Urinary Catheter: No Vascular Central Line Catheter: No A/P Problem List: (1) Non-STEMI (non-ST elevated myocardial infarction) ICD Code: I21.4 - Non-ST elevation (NSTEMI) myocardial infarction Status: Acute (2) Chest tightness ICD Code: R07.89 - Other chest pain Status: Acute (3) CAD (coronary artery disease) ICD Code: I25.10 - Atherosclerotic heart disease of [place] coronary artery without angina pectoris Status: Chronic (4) Hypertension ICD Code: I10 - Essential (primary) hypertension Status: Chronic (5) Hyperlipidemia ICD Code: E78.5 - Hyperlipidemia, unspecified Status: Chronic (6) Tobacco abuse ICD Code: Z72.0 - Tobacco use Status: Chronic Assessment and Plan 1. NSTEMI: Troponins are mildly elevated. Chest pain has resolved. Appreciate cardiology recommendations. Patient still on nitroglycerin and heparin drips. Planning for cardiac catheterization today. Continue aspirin, Plavix, beta vivian, statin. 2. Hypertension: Continue metoprolol. BP is controlled. Heart rate has been borderline low. 3. Tobacco abuse: Counseled quit smoking. 4. History of alcohol abuse: No signs of withdrawal at this time. 5. DVT prophylaxis: Heparin drip. Discharge Planning When cleared by cardiology. Kenan Haley MD Dec 27, 2016 09:53
[2016-12-27] MEDS ORDERED: HEPARIN-NS/PF INJ 1,000 ML ONE (14:56)
[2016-12-27] MEDS ORDERED: MIDAZOLAM HCL 2 MG/2 ML VIAL ONE (15:01)
[2016-12-27] MEDS ORDERED: SODIUM CHLORIDE 0.9% FLUSH 10 ML FLUSH PRN (15:30)
[2016-12-27] MEDS ORDERED: BACITRACIN OINT 0.9 GM PKT TOP ONE (15:30)
[2016-12-27] MEDS ORDERED: MISC INFORMATION XX ONE (15:30)
--- NOTE | 2016-12-27 15:50 | CATHPROC ---
[facility] HIS Report Study Information Study Number Admission Scheduled Start Study Start [id number] Dec 25 2016 11:36AM 12/27/2016 Dec 27 2016 2:48PM [place] [facility] Cardiac Catheterization Admit Source Facility Department Other [facility] - Dishwashing Machine Operator Physician and Clinical Staff Initial Robbie Elizabeth Pump Technicianrusty Shields RN, Jose Other cathlab, cathlab Other [place] [facility] RCIS(BS) Recorder Cristal Yarbrough RCIS TECH2 Scrub Mainor Bucio,RT(R) Procedures Performed Procedure Location (Site) Vessel Name Coronary Angiograms LCA Left Coronary Coronary Angiograms RCA Right Coronary LV Gram-hand inj. LV LV Ventricle Equipment Time Food Vendor Description Size Mfg Part Number Used/Scraped TRANSDUCER, [id number] [id number] 14:49 MULLINS GALLO * Used W/STOCKCOCK *[id number] *[id number] *[id number] 14:49 [employer] PACK, CCL CUSTOM * Used *[id number] 14:49 [employer] PACER PEN, SKIN DUAL W/ RULER * Used *[id number] 14:49 [employer] WIRE, 3MMJ .035 180CM 180CM Used *[id number] 14:49 NAMIC MANIFOLD, 4 PORT * Used *[id number] 14:49 [employer]COMED OMNIPAQUE, 350 MG, 150ML 150ML [id number] 14:49 [employer],WARM AIR CCL * Used *[id number] 14:49 [employer]UMO MED[employer] SHEATH, FR4 TERUMO (10CM) FR 4 Used *[id number] History: Current Medications Medication Dosage/Unit Route Frequency Last Date/Time Taken Statins (any) ASA PLAVIX History: Allergies Allergy Reaction No Known Allergies History: Risk Factors Family History of Hypertension Dyslipidemia Previous TN Previous Heart Failure Premature CAD No Yes No No No Prior Valve Prior PCI Prior PCIDate Prior CABG Surgery No Yes 11/29/2016 No Cerebrovascular Peripheral Artery Chronic Lung On Dialysis Diabetes Disease Disease Disease No No No No No History: Stress Tests Stress or Imaging Studies Performed No History: Other Disease Selection Items HTN History: TN/CV Data Previous Cath Date 11/29/2016 History: Other Current Smoker Packs a Day Years Used Pack Years Yes 1 37 37 Labs Hgb (g/dl) Hct (%) WBC (l/cumm) Platelets (thousands) 11.60-17.00 35.00-51.00 4.00-11.00 150.00-450.00 11.9 36 4.5 199 BUN (mg/dl) Creatinine (mg/dl) BUN:Creatinine (1:x) 7.00-18.00 0.50-1.30 10.00-20.00 10 0.6 16.7 Na (meq/l) K (meq/l) 136.00-145.00 3.50-5.10 140 4 INR (PTT:PT) 0.90-1.10 0.9 Troponin I (ng/ml) CPK (u/l) CPK-MB (ng/ML) 0.02-0.05 26.00-308.00 0.50-3.60 0.14 169 Not Drawn Medication Medication Total Dose (Bolus/Oral) Medication Total Dosage/Unit 1% XYLOCAINE 20 mL VERSED 2 mg Medications (Bolus/Oral) Medication Time Given Dosage/Unit Administered By Reason VERSED 12/27/2016 3:03:49 PM 1 mg Jose Shields RN 1 mg VERSED given in lab by Jose Shields RN in Left Antecubital via Peripheral IV. Ordered by Robbie Virgen. VERSED 12/27/2016 3:09:23 PM 1 mg Jose Shields RN 1 mg VERSED given in lab by Jose Shields RN in Left Antecubital via Peripheral IV. Ordered by Robbie Virgen. 1% XYLOCAINE 12/27/2016 3:11:04 PM 20 mL Jose Shields RN 20 mL 1% XYLOCAINE given in lab by Jose Shields RN via Subcutaneous. Ordered by Robbie Patterson. Medication (Drip) Medication Time Given Dosage/Unit Concentration/Unit Diluent (ml) Solution IV Solutions 12/27/2016 2:49:21 PM 0 mL (IV) 500 NaCl .9 IV Solutions given in lab by Jose Shields RN in Left Forearm via Peripheral IV. Pump/Drip Flow = 20 m l/hr using NaCl .9. Ordered by Robbie Patterson. NITROGLYCERIN DRIP 12/27/2016 2:50:18 PM 5 mcg/min 50 mg 250 D5W Patient arrived on 5 mcg/min NITROGLYCERIN DRIP in Left Antecubital via Peripheral IV. Pump/Drip Flow = 1.5 ml/hr using D5W with a concentration of 50 mg in 250 ml. NITROGLYCERIN DRIP 12/27/2016 3:20:57 PM 5 mcg/min 50 mg 250 D5W 5 mcg/min NITROGLYCERIN DRIP discontinued in lab by Jose Shields RN in Left Antecubital via Periphera l IV. Pump/Drip Flow = 1.5 ml/hr using D5W with a concentration of 50 mg in 250 ml. Ordered by Robbie Patterson. Reason: As per physicians chloe arnold order. drip discontinued Discontinued at 12/27/2016 15:42. Initial Case Assessment Cardiovascular HR Rhythm NIBP Chest Pain 46 sbrady 150/69 0 Edema Present Skin color Skin None Normal Warm Dry Circulatory - Right Pulses Dorsalis Pedis Femoral 2 2 Scale (0,1,2,3,4,d) Circulatory - Left Pulses Dorsalis Pedis Femoral 2 2 Scale (0,1,2,3,4,d) Neurological State Oriented to time-place- Alert Moves all extremities person Respiration - General Respiration Rate SpO2 (%) (B/min) 15 100 Final Case Assessment Cardiovascular HR Rhythm NIBP Chest Pain 69 sb 168/93 0 Circulatory - Right Pulses Dorsalis Pedis Femoral 2 2 Scale (0,1,2,3,4,d) Circulatory - Left Pulses Dorsalis Pedis Femoral 2 2 Scale (0,1,2,3,4,d) Neurological State Oriented to time-place- Alert Moves all extremities person Respiration - General Respiration Rate SpO2 (%) (B/min) 12 100 Chronological Log Time Study Chronological Log 14:49:15 Patient arrived via Bed. 14:49:15 Patient Name, D.O.B, / Armband Verified By R.N. 14:49:16 Consent signed by the physician and the patient and verified by the Dishwashing Machine Operator staff. 14:49:16 Pre-op and post- op instructions given; patient acknowledges understanding of instructions. 14:49:16 Verbal Stimulation=2 Physical Stimulation=2 Airway=2 Respiration=2 TOTAL=8. (0=absent, 1=li mited, 2=present) 14:49:17 Presedation assessment performed by Dishwashing Machine Operator RN. 14:49:18 Immediate Presedation assesment performed by physician. 14:49:18 Patient has been NPO for More than 6Hrs. 14:49:19 Skin Breakdown-scab noted on right elbow 14:49:20 Patient Warmer Placed on the Table. 14:49:20 Harriett Prominences Protected 14:49:21 A # 20 IV was noted in the Forearm (left). Grade = 0 IV Solutions given in lab by Jose Shields RN in Left Forearm via Peripheral IV. Pump/Drip Flow = 20 ml/hr using NaCl .9. 14:49:21 Ordered by Robbie Patterson. 14:49:21 History and physical on the chart or being dictated. Patient arrived on 5 mcg/min NITROGLYCERIN DRIP in Left Antecubital via Peripheral IV. Pump/Dri p Flow = 1.5 ml/hr 14:50:18 using D5W with a concentration of 50 mg in 250 ml. 14:56:53 Reference ECG taken Vitals capture started with the following parameters, Patient=Adult, Interval=5 min, Initial Pr cegyhf=423 mmHg, 14:56:58 Deflation Rate=5 mmHg Assessment: Initial Case, HR=46 BPM, Rhythm=sbrady, XOMA=551/69 mmhg, Chest Pain=0, Edema=None, Color=Normal, Skin = Warm, Dry Right Pulses: Abram Ped=2, Femoral=2 14:57:00 Left Pulses: Abram Ped=2, Femoral=2 Neurological: State=Alert, Ox3, MARIANO Respiration: Resp=15 B/min, SvB2=346 % 14:57:35 HR=48 bpm, EBXM=248/69 mmhg, KhS9=771.0 %, Resp=12 B/min, Pain=0, Hubert=10, Mckeon=2 14:59:29 MD arrived. 15:01:41 Bilateral groins prepped with 2% chlorhexidine, and draped after a 3 min. waiting time. 15:02:38 HR=47 bpm, ZZMO=933/73 mmhg, LsI9=669.0 %, Resp=10 B/min 15:03:49 1 mg VERSED given in lab by Jose Shields RN in Left Antecubital via Peripheral IV. Ordered by Robbie Patterson. 15:07:03 Pressure channel 1 zeroed. 15:07:37 HR=50 bpm, WTUE=873/73 mmhg, SpO2=98.0 %, Resp=12 B/min Time Out. Correct patient, correct procedure,correct physician,power injector not loaded with c ontrast with surgical 15:08:48 team present. Time Out Concurred by MD, individual staff and COMMERCIAL CARPENTER in procedure 15:09:23 1 mg VERSED given in lab by Jose Shields RN in Left Antecubital via Peripheral IV. Ordered by Robbie Patterson. 15:11:02 Case Start 15:11:04 20 mL 1% XYLOCAINE given in lab by Jose Shields RN via Subcutaneous. Ordered by Josefina Patterson [email or web address]. 15:11:05 Access site was Right Femoral Artery. 15:11:13 A SHEATH, FR4 TERUMO (10CM) FR 4 was advanced into the Fem Art (right) using the Percutaneo us technique. A JR 4.0 INFINITI CATHETER FR 4 was advanced over a wire. OMNIPAQUE, 350 MG, 150ML 150ML was us ed for 15:11:24 injections. Recorded Pressure: LV, HR=52, Condition=Condition 1 15:12:15 (Left Ventricle) LV 151/1/13 15:12:34 HR=51 bpm, NDVU=390/74 mmhg, SpO2=99.0 %, Resp=17 B/min 15:12:35 The LV was manually injected with 10 cc's and visualized. OMNIPAQUE, 350 MG, 150ML 150ML us ed. Recorded Pressure: LV, Ao, HR=51, Condition=Condition 1 15:12:50 (Left Ventricle) LV 148/3/18, (Aorta) Ao 153/56/96 15:13:06 The RCA was injected and visualized at various angles. OMNIPAQUE, 350 MG, 150ML 150ML used . 15:14:24 Catheter was removed A JL 4.0 INFINITI CATHETER FR 4 was advanced over a wire. OMNIPAQUE, 350 MG, 150ML 150ML was us ed for 15:14:25 injections. 15:15:00 The LCA was injected and visualized at various angles. OMNIPAQUE, 350 MG, 150ML 150ML used . 15:17:39 Catheter was removed 15:17:41 Case End 15:17:50 No case complications noted. 15:17:52 Cine recording checked. 15:18:15 Activated Clotting Time Drawn 15:18:18 HR=62 bpm, JAQA=930/89 mmhg, SpO2=99.0 %, Resp=10 B/min, Pain=0, Hubert=10, Mckeon=2 5 mcg/min NITROGLYCERIN DRIP discontinued in lab by Jose Shields RN in Left Antecubital via Per ipheral IV. Pump/Drip 15:20:57 Flow = 1.5 ml/hr using D5W with a concentration of 50 mg in 250 ml. Ordered by Mayur Patterson. Reason: As per physicians verbal order. drip discontinued Discontinued at 12/27/2016 15:42. 15:21:22 ACT (Normal Range 90-180) = 142 15:22:38 HR=67 bpm, GZBL=298/88 mmhg, RfR6=778.0 %, Resp=10 B/min Vitals capture started with the following parameters, Patient=Adult, Interval=5 min, Initial Pr wlyftw=933 mmHg, 15:30:13 Deflation Rate=5 mmHg 15:31:28 QGEK=826/85 mmhg 15:31:32 Sheath removed; pressure applied to access site. 15:35:51 HR=69 bpm, IZFB=145/93 mmhg, IfK6=830.0 %, Resp=12 B/min, Pain=0, Hubert=10, Mckeon=2 Assessment: Final Case, HR=69 BPM, Rhythm=sb, LHLQ=937/93 mmhg, Chest Pain=0 Right Pulses: Abram Ped=2, Femoral=2 15:40:39 Left Pulses: Abram Ped=2, Femoral=2 Neurological: State=Alert, Ox3, MARIANO Respiration: Resp=12 B/min, SoB2=275 % 15:40:50 HR=64 bpm, RBKK=317/94 mmhg, WfG1=394.0 %, Resp=23 B/min 15:43:01 Hemostasis obtained 15:44:33 Sterile dressing applied to site 15:45:22 Vitals capture stopped. 15:46:47 Patient moved to bed 15:47:20 [place] [facility] [place]:48:[place] Bedside Report will be given. End Study - Contrast Media Used In Study Contrast Total Opened (mL) Total Used (mL) Total Wasted (mL) Omnipaque 25 25 0 End Study - Maximum Contrast Load Max Contrast Load (mL) 463.3 End Study - Radiation Exposure Fluoro Time (minutes) 1.0 End Study - Sheaths Sheaths Pulled By Sheath Hold Time (min) Robbie Patterson End Study - Patient Disposition Complications Transferred To Interventional Outcome No Critical Care Bed No attempt made
[2016-12-27] MEDS ORDERED: IOHEXOL 350 MG/ML 50 ML BTL (for Cath Lab) OTHER ONE (16:15)
[2016-12-27] MEDS ORDERED: SODIUM CHLORIDE 0.9% FLUSH 10 ML FLUSH IV FLUSH PRN (16:45)
[2016-12-27] MEDS ORDERED: SODIUM CHLORIDE 0.9% FLUSH 10 ML FLUSH IV FLUSH SCH (21:00)
[2016-12-27] MEDS: ATORVASTATIN 20 MG TAB PO SCH (21:04)
[2016-12-28] VITALS (11 sets, daily range): BP systolic 116–138; BP diastolic 65–75; PULSE 50–56; RESP 16–23; TEMP 98–98.1; O2SAT 98–99
[2016-12-28] MEDS: METOPROLOL TARTRATE 25 MG TAB PO SCH (05:30)
[2016-12-28 06:27] LABS: HEMATOCRIT 35.1 % (35.0-46.0); MEAN CELL VOLUME 102.1 FL (80.0-100.0); MEAN CORPUSCULAR HEMOGLOBIN 34.3 PG (27.0-34.0); MEAN CORPUSCULAR HGB CONC 33.6 % (32.0-36.0); PLATELET COUNT 181 TH/MM3 (150-450); RED BLOOD COUNT 3.44 MIL/MM3 (4.00-5.30); RED CELL DISTRIBUTION WIDTH 14.6 % (11.6-17.2); REVIEW FLAG FINAL; WHITE BLOOD COUNT 5.6 TH/MM3 (4.0-11.0)
--- NOTE | 2016-12-28 07:52 | MA ---
cc: OLIVIA SALAS M.D. DATE: 12/27/2016 PROCEDURE PERFORMED Left heart catheterization, left ventriculography, coronary angiography. INDICATIONS Coronary artery disease, non-STEMI, [place] [employer] class IV angina. PROCEDURE The patient was brought to the cardiac catheterization laboratory, prepped and draped in the usual sterile fashion. 10 cc of 1% lidocaine was used to locally anesthetize the right common femoral artery. A 4 [place] sheath was placed in the right common femoral artery. A 0.014 catheter was used to perform left and right coronary angiography and left ventriculography. FINDINGS LV pressure is 100-8/9. Ejection fraction 60%. The right coronary is nondominant, has no significant disease angiographically. The left main coronary has no significant disease angiographically. The left circumflex vessel has mild disease in the proximal segment up to 20% angiographically. Also the midsegment 20% angiographically. The obtuse marginal vessel is a small vessel with a 75% stenosis. This is a 1.5 to 2 mm vessel. It has a 30 degree angulation off the left circumflex vessel which is a dominant vessel. The obtuse marginal vessel is a large vessel approaching the apex with mild diffuse disease, the proximal segment up to 20-30% angiographically. The LAD is transapical. The stent in the midsegment is widely patent. There is mild disease in the midsegment at the bifurcation with the first diagonal artery about 30-40% angiographically. The first diagonal artery has mild disease up to 20% angiographically. It is a small to medium size vessel. CONCLUSIONS 1. Angiographically severe one-vessel disease in a small ramus intermedius vessel as detailed above. 2. Otherwise mild three-vessel coronary artery disease in a left dominant system as detailed above. 3. There is a widely patent stent in the mid left anterior descending coronary artery as detailed above. 4. Normal LV systolic function, ejection fraction 60%. RECOMMENDATIONS Recommend continuing aspirin and Plavix. Strongly emphasized medical compliance with the patient and she understands. Strongly recommend tobacco cessation. Otherwise continue medical management for coronary artery disease. MD CASPER Courtney/SARA /3:24 PM /7:32 AM
--- NOTE | 2016-12-28 09:02 | HHI.PR ---
Subjective Remarks Follow up NSTEMI. Patient denies chest pain, dyspnea. She wants to go home. No complaints at this time. Objective Vitals Vital Signs Date Time Temp Pulse Resp B/P (MAP) Pulse Ox O2 Delivery O2 Flow Rate FiO2 12/28/16 08:10 98.1 51 16 116/65 (82) 99 12/28/16 07:00 54 12/28/16 06:00 50 12/28/16 05:00 56 12/28/16 04:46 98 12/28/16 04:44 98.0 55 23 138/75 (96) 98 12/28/16 04:00 56 12/28/16 03:00 56 12/28/16 02:00 56 12/28/16 01:00 54 12/28/16 00:00 54 12/27/16 23:12 98.2 56 23 114/64 (81) 98 12/27/16 23:00 58 12/27/16 22:00 54 12/27/16 21:00 54 12/27/16 20:00 56 12/27/16 19:44 98.2 60 23 130/64 (86) 98 12/27/16 19:00 59 12/27/16 16:15 97.9 61 23 168/81 (110) 99 12/27/16 16:15 61 12/27/16 14:15 47 12/27/16 14:00 46 12/27/16 13:00 45 12/27/16 12:25 99 12/27/16 12:00 98.3 47 25 122/62 (82) 98 12/27/16 12:00 47 12/27/16 11:00 57 12/27/16 11:00 57 21 117/69 (85) 100 12/27/16 10:00 47 14 129/61 (83) 98 12/27/16 10:00 47 12/27/16 09:00 85 48 12/27/16 09:00 85 I/O 12/27/16 12/27/16 12/27/16 12/28/16 12/28/16 12/28/16 07:00 15:00 23:00 07:00 15:00 23:00 Intake Total 240 ml 240 ml 240 ml Output Total 600 ml 800 ml 400 ml Balance -360 ml -560 ml -160 ml Intake Oral 240 ml 240 ml 240 ml Output Urine Total 600 ml 800 ml 400 ml # Voids 1 # Bowel Movements 0 Result Diagram: 12/28/16 0500 12/27/16 0146 Imaging Last Impressions Chest X-Ray 12/25/16 0920 Signed Impressions: Service Date/Time: Sunday, December 25, 2016 10:34 - CONCLUSION: No acute cardiopulmonary abnormality is identified. Rik Claudio MD Objective Remarks General: No acute distress. Heart: Regular rate and rhythm. No murmur. Lungs: Clear to auscultation bilaterally. No wheezes, rales, or rhonchi. Breathing is nonlabored. Abdomen: Soft, nontender, nondistended. Extremities: No lower extremity edema. Psych: Alert and oriented. Procedures 12/27/16 Cardiac catheterization Urinary Catheter: No Vascular Central Line Catheter: No A/P Problem List: (1) Non-STEMI (non-ST elevated myocardial infarction) ICD Code: I21.4 - Non-ST elevation (NSTEMI) myocardial infarction Status: Acute (2) Chest tightness ICD Code: R07.89 - Other chest pain Status: Acute (3) CAD (coronary artery disease) ICD Code: I25.10 - Atherosclerotic heart disease of [place] coronary artery without angina pectoris Status: Chronic (4) Hypertension ICD Code: I10 - Essential (primary) hypertension Status: Chronic (5) Hyperlipidemia ICD Code: E78.5 - Hyperlipidemia, unspecified Status: Chronic (6) Tobacco abuse ICD Code: Z72.0 - Tobacco use Status: Chronic Assessment and Plan 1. NSTEMI: Troponins are mildly elevated. Chest pain has resolved. Appreciate cardiology recommendations. S/P cardiac catheterization. Continue aspirin, Plavix, beta vivian, statin. 2. Hypertension: BP is controlled. Heart rate has been low. Change metoprolol to BID. 3. Tobacco abuse: Counseled quit smoking. 4. History of alcohol abuse: No signs of withdrawal at this time. 5. DVT prophylaxis: On aspirin and plavix. Heparin drip discontinued by cardiology. Discharge Planning When cleared by cardiology. Kenan Haley MD Dec 28, 2016 09:02
[2016-12-28] MEDS ORDERED: RAMI2.5C PO (09:06)
[2016-12-28] MEDS ORDERED: METO25TA3 PO (09:06)
[2016-12-28] MEDS ORDERED: NITR0.4S SL (09:06)
[2016-12-28] MEDS ORDERED: ATOR20TA15 PO (09:06)
[2016-12-28] MEDS ORDERED: FAMO20TA2 PO (09:06)
[2016-12-28] MEDS ORDERED: VENTAER INH (09:06)
[2016-12-28] MEDS ORDERED: GNP100TA3 PO (09:06)
[2016-12-28] MEDS ORDERED: THERM PO (09:06)
[2016-12-28] MEDS ORDERED: HYDR-3580 PO (09:06)
[2016-12-28] MEDS ORDERED: FOLI1TAB6 PO (09:06)
[2016-12-28] MEDS ORDERED: PLAV75TA29 PO (09:06)
[2016-12-28] MEDS ORDERED: ASPI81CH25 PO (09:06)
--- NOTE | 2016-12-28 09:06 | HHI.DCPOC ---
Discharge Care Plan Diagnosis: (1) CAD (coronary artery disease) (2) Hypertension (3) Tobacco abuse (4) Hyperlipidemia (5) Non-STEMI (non-ST elevated myocardial infarction) Goals to Promote Your Health * To prevent worsening of your condition and complications * To maintain your health at the optimal level Directions to Meet Your Goals Take your medications as prescribed Follow your dietary instruction Follow activity as directed Keep your appointments as scheduled Take your immunizations and boosters as scheduled If your symptoms worsen call your PCP, if no PCP go to Urgent Care Center or Emergency Room Smoking is Dangerous to Your Health. Avoid second hand smoke Call the 24-hour hour crisis hotline for domestic abuse at Kenan Haley MD Dec 28, 2016 09:06
[2016-12-28] MEDS: ASPIRIN EC 81 MG TABEC PO SCH (09:50)
[2016-12-28] MEDS: RAMIPRIL 2.5 MG CAP PO SCH (09:50)
[2016-12-28] MEDS: DOCUSATE SODIUM 50 MG/SENNA 8.6 MG TAB PO SCH (09:50)
[2016-12-28] MEDS: CLOPIDOGREL 75 MG TAB PO SCH (09:51)
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
== END 2016-12-28 10:51 | disposition home or self-care (01) | DRG 281 ==
LOC: NEPC 08:41 → NEDH 11:36 → HIMN 12:05 → HCIS 12-27 18:32
PROVIDERS: ADMIT Family Medicine; ATTEND Family Medicine
PROC: B2111ZZ Fluoroscopy of Multiple Coronary Arteries using Low Osmolar Contrast (ICD-10-PCS; 2016-12-27)
PROC: B2151ZZ Fluoroscopy of Left Heart using Low Osmolar Contrast (ICD-10-PCS; 2016-12-27)
PROC: 4A023N7 Measurement of Cardiac Sampling and Pressure, Left Heart, Percutaneous Approach (ICD-10-PCS; principal; 2016-12-27 13:30)
DX: I21.4 Non-ST elevation (NSTEMI) myocardial infarction (principal); E87.1 Hypo-osmolality and hyponatremia; I25.119 Atherosclerotic heart disease of native coronary artery with unspecified angina pectoris; Z91.14 Patient's other noncompliance with medication regimen; I10 Essential (primary) hypertension; F17.210 Nicotine dependence, cigarettes, uncomplicated; R00.0 Tachycardia, unspecified; M19.90 Unspecified osteoarthritis, unspecified site; F10.10 Alcohol abuse, uncomplicated; R73.9 Hyperglycemia, unspecified; Z80.1 Family history of malignant neoplasm of trachea, bronchus and lung; Z95.5 Presence of coronary angioplasty implant and graft; E78.5 Hyperlipidemia, unspecified
CPT/HCPCS: 71010; 80048; 80053; 82550; 82552; 82948; 83735; 83880; 84484; 85002; 85025; 85027; 85610; 85730; 87641; 93005; 93458; C1769; C1893; J1644; J2250; J2270; J7030; Q9967

== ENCOUNTER 2017-02-19 20:11 | Inpatient (IN) | payer SELFPAY ==
[~2017-02-19] VITALS: Ht 167.6 cm; Wt 56.3 kg
[~2017-02-19 20:11] MED LIST changes: -GNP100TA3 PO; +METO25TA3 PO; +RAMI2.5C PO; +THIA100 PO; -guaiFENesin ER PO
[2017-02-19 20:12] VITALS: BP 124/61; PULSE 116; RESP 18; TEMP 99.2; O2SAT 94
[2017-02-19 20:26] VITALS: BP 136/71; PULSE 109; RESP 20; TEMP 99.2; O2SAT 95
[2017-02-19] MEDS ORDERED: SODIUM CHLORIDE 0.9% FLUSH 10 ML FLUSH IVF PRN (20:30)
--- NOTE | 2017-02-19 20:38 | PD ---
HPI Chief Complaint: Chest Pain Time Seen by Provider: 20:20 Travel History International Travel<30 days: No Contact w/Intl Traveler<30days: No Traveled to known affect area: No History of Present Illness HPI The patient is a 56-year-old female that complains of both a sharp and pressure pain in the upper sternal area for 2 days. It hurts when she coughs. The patient was admitted several months ago to the hospital and she got 2 stents following a coronary angiogram approximately 2 months ago. She did not follow- up with any primary care physician and ran out of her medications 3 weeks ago. She does admit to drinking vodka tonight, she does have a history of alcohol abuse. She also smokes one pack a day. Her last stress test was about 3 months ago and her last angiogram was 2 months ago. She denies any fever, chills, hemoptysis, night sweats or weight loss. PFSH Past Medical History Arthritis: Yes (right side) Cancer: No Cardiac Catheterization: Yes (stents) Cardiovascular Problems: Yes (this admission) Chest Pain: Yes Diminished Hearing: No Endocrine: No Genitourinary: No Musculoskeletal: Yes Psychiatric: No Reproductive: No Respiratory: Yes (COPD) Immunizations Current: Yes Menopausal: Yes : 5 Para: 1 Miscarriage: 2 : 2 Ovarian Cysts: Yes Past Surgical History Appendectomy: Yes Social History Alcohol Use: Yes (1 [place] DAILY, was clean since stents, relapsed 3 days ago) Tobacco Use: Yes (1 PPD) Substance Use: No Allergies-Medications (Allergen,Severity, Reaction): Coded Allergies: No Known Allergies (Verified Adverse Reaction, Unknown, 02/19/17) Reported Meds & Prescriptions Reported Meds & Active Scripts Active Ramipril 2.5 Mg Cap 2.5 Mg PO DAILY Metoprolol Tartrate 25 Mg Tab 25 Mg PO BID Ventolin Hfa 18 GM Inh (Albuterol Sulfate) 90 Mcg/Act Aer 2 Puff INH Q4-6H PRN Hydrocodone-Acetaminophen 7.5-325 mg Tab 1 Tab PO Q4H PRN Nitrostat SL (Nitroglycerin) 0.4 Mg Subl 0.4 Mg SL Q5M PRN Folic Acid 1 Mg Tablet 1 Mg PO DAILY Aspirin Low Strength (Aspirin) 81 Mg Chew 162 Mg PO DAILY Atorvastatin (Atorvastatin Calcium) 20 Mg Tab 20 Mg PO HS Plavix (Clopidogrel Bisulfate) 75 Mg Tab 75 Mg PO DAILY Review of Systems Except as stated in HPI: all other systems reviewed are Neg Physical Exam Narrative GENERAL: The patient is alert, oriented 3, smells strongly of vodka, and minimal apparent distress with her chest discomfort. Her vital signs show heart rate of 116 and temperature 99.2 and oximetry 94% but otherwise normal. SKIN: Focused skin assessment warm/dry. HEAD: Atraumatic. Normocephalic. EYES: Pupils equal and round. No scleral icterus. No injection or drainage. ENT: No nasal bleeding or discharge. Mucous membranes pink and moist. NECK: Trachea midline. No JVD. CARDIOVASCULAR: Regular rate and rhythm. No murmur appreciated. I can completely reproduce the patient's chest pain by pressing on the upper sternal area where the patient perceives her pain. RESPIRATORY: No accessory muscle use. Clear to auscultation. Breath sounds equal bilaterally. GASTROINTESTINAL: Abdomen soft, non-tender, nondistended. Hepatic and splenic margins not palpable. No guarding or rebound is present. MUSCULOSKELETAL: No obvious deformities. No clubbing. No cyanosis. No edema. NEUROLOGICAL: Awake and alert. No obvious cranial nerve deficits. Motor grossly within normal limits. Normal speech. PSYCHIATRIC: The patient appears alcohol intoxicated slightly; insight and judgment fair. Data Data Last Documented VS Vital Signs Date Time Temp Pulse Resp B/P (MAP) Pulse Ox O2 Delivery O2 Flow Rate FiO2 02/19/17 20:42 95 02/19/17 20:26 99.2 109 20 Room Air Orders Orders Alcohol (Ethanol) (02/19/17 20:28) Electrocardiogram (02/19/17 20:28) Complete Blood Count With Diff (02/19/17 20:28) Comprehensive Metabolic Panel (02/19/17 20:28) Magnesium (Mg) (02/19/17 20:28) Troponin I (02/19/17 20:28) Ecg Monitoring (02/19/17 20:28) Bilateral Bp Monitoring (02/19/17 20:28) Iv Access Insert/Monitor (02/19/17 20:28) Oximetry (02/19/17 20:28) Oxygen Administration (02/19/17 20:28) Sodium Chloride 0.9% Flush (Ns Flush) (11/18/17 20:30) Chest, Pa & Lat (02/19/17 20:28) Ct Thorax/ Chest W Iv Contrast (02/19/17 21:55) Labs Laboratory Tests Test 02/19/17 20:30 White Blood Count 9.1 TH/MM3 Red Blood Count 4.54 MIL/MM3 Hemoglobin 14.5 GM/DL Hematocrit 43.4 % Mean Corpuscular Volume 95.8 FL Mean Corpuscular Hemoglobin 32.0 PG Mean Corpuscular Hemoglobin Concent 33.4 % Red Cell Distribution Width 13.8 % Platelet Count 384 TH/MM3 Mean Platelet Volume 7.3 FL Neutrophils (%) (Auto) 49.2 % Lymphocytes (%) (Auto) 40.7 % Monocytes (%) (Auto) 6.3 % Eosinophils (%) (Auto) 1.8 % Basophils (%) (Auto) 2.0 % Neutrophils # (Auto) 4.4 TH/MM3 Lymphocytes # (Auto) 3.7 TH/MM3 Monocytes # (Auto) 0.6 TH/MM3 Eosinophils # (Auto) 0.2 TH/MM3 Basophils # (Auto) 0.2 TH/MM3 CBC Comment DIFF FINAL Differential Comment Blood Urea Nitrogen 25 MG/DL Creatinine 0.71 MG/DL Random Glucose 130 MG/DL Total Protein 7.8 GM/DL Albumin 3.8 GM/DL Calcium Level 8.4 MG/DL Magnesium Level 2.1 MG/DL Alkaline Phosphatase 62 U/L Aspartate Amino Transf (AST/SGOT) 45 U/L Alanine Aminotransferase (ALT/SGPT) 37 U/L Total Bilirubin 0.5 MG/DL Sodium Level 140 MEQ/L Potassium Level 3.9 MEQ/L Chloride Level 104 MEQ/L Carbon Dioxide Level 23.1 MEQ/L Anion Gap 13 MEQ/L Estimat Glomerular Filtration Rate 85 ML/MIN Troponin I LESS THAN 0.02 NG/ML Ethyl Alcohol Level 278 MG/DL MDM Medical Decision Making Medical Screen Exam Complete: Yes Emergency Medical Condition: Yes Medical Record Reviewed: Yes Interpretation(s) The EKG shows sinus rhythm with a rate of 90 and is completely normal. The CBC is normal. The complete metabolic profile shows a BUN of 25, GFR of 85, calcium 8.4, GOT of 45 but is otherwise unremarkable. The troponin I is normal. The alcohol level is 278. The chest x-ray shows a 3.5 cm cavitary mass in the left upper lobe. We are getting a CT of the thorax with IV contrast. Differential Diagnosis Acute coronary syndrome, alcohol intoxication, electrolyte disorder, chest wall pain, chest pain etiology undetermined, pancreatitis, pneumonia, tuberculosis Narrative Course The patient is unreliable. At this time she is intoxicated with alcohol, she is an alcohol abuser. She does not have any primary care physician. She has ran out of her medications 3 months ago and still does not have a primary care physician. She is unlikely to follow-up in a timely fashion regarding this cavitary mass in the left upper lobe. She denies any history of tuberculosis. At this time, the patient is admitted for chest pain for 23 hour observation. I discussed the patient with Dr. العلي. Physician Communication Physician Communication I discussed the patient with Dr. العلي: The patient will be admitted for 23 hour observation to her here at [place]. Diagnosis Primary Impression: Chest pain Additional Impressions: Cavitating mass of lung Alcohol abuse with intoxication Admitting Information Admitting Physician Requests: Observation Edward Carrillo MD Feb 19, 2017 20:38
[2017-02-19 20:42] VITALS: O2SAT 95
[2017-02-19 20:42] LABS: AUTOMATED NEUTROPHIL # 4.4 TH/MM3 (1.8-7.7); BASOPHIL # 0.2 TH/MM3 (0-0.2); EOSINOPHIL # 0.2 TH/MM3 (0-0.4); EOSINOPHIL % 1.8 % (0.0-4.0); HEMATOCRIT 43.4 % (35.0-46.0); HEMO FLAGS DIFF FINAL; LYMPH % 40.7 % (9.0-44.0); LYMPHOCYTE # 3.7 TH/MM3 (1.0-4.8); MEAN CELL VOLUME 95.8 FL (80.0-100.0); MEAN CORPUSCULAR HGB CONC 33.4 % (32.0-36.0); MONO % 6.3 % (0.0-8.0); NEUT % 49.2 % (16.0-70.0); PLATELET COUNT 384 TH/MM3 (150-450); RED BLOOD COUNT 4.54 MIL/MM3 (4.00-5.30); RED CELL DISTRIBUTION WIDTH 13.8 % (11.6-17.2); WHITE BLOOD COUNT 9.1 TH/MM3 (4.0-11.0)
[2017-02-19 20:53] LABS: CHLORIDE 104 MEQ/L (98-107); POTASSIUM 3.9 MEQ/L (3.5-5.1); SODIUM (NA) 140 MEQ/L (136-145)
[2017-02-19 20:57] LABS: ANION GAP 13 MEQ/L (5-15); BICARBONATE 23.1 MEQ/L (21.0-32.0); BLOOD UREA NITROGEN 25 MG/DL (7-18); MAGNESIUM 2.1 MG/DL (1.5-2.5)
[2017-02-19 21:00] LABS: ALT (GPT) 37 U/L (10-53); AST (GOT) 45 U/L (15-37); GLOMERULAR FILTRATION RATE 85 ML/MIN (>89)
[2017-02-19 21:01] LABS: TOTAL BILIRUBIN ADULT 0.5 MG/DL (0.2-1.0)
--- NOTE | 2017-02-19 21:02 | RADRPT ---
EXAM DATE/TIME: 02/19/2017 20:44 [facility] COMPARISON: No previous studies available for comparison. INDICATIONS : Chest pain. MEDICAL HISTORY : ETOH abuse. Smoker SURGICAL HISTORY : Appendectomy. Coronary artery stent. ENCOUNTER: Initial ACUITY: 2 days PAIN SCORE: 5/10 LOCATION: Bilateral chest FINDINGS: There is a cavitary mass in the left upper lobe measuring approximately 3.5 cm. This may be infectiou s or neoplastic. Lungs otherwise appear clear. No pleural effusion seen. No pneumothorax. There is pectus excavatum no orion. CONCLUSION: 3.5 cm cavitary mass of the left upper lobe. CT of the chest, preferably with intravenous contrast, i s recommended. Rik Kunz MD on February 19, 2017 at 20:59 Board Certified Radiologist. This report was verified electronically.
[2017-02-19 21:03] LABS: ALKALINE PHOSPHATASE 62 U/L (45-117)
[2017-02-19 21:27] LABS: ALCOHOL 278 MG/DL (0-5)
[2017-02-19] MEDS ORDERED: IOHEXOL 350 MG/ML 10 ML VIAL (for RAD DIAG) IVCONTRAST ONE (22:10)
[2017-02-19] MEDS ORDERED: LORazepam 2 MG/ML VIAL IV PUSH PRN ×4 (22:15)
[2017-02-19] MEDS ORDERED: BISACODYL 10 MG SUPP RECTAL PRN (22:15)
[2017-02-19] MEDS ORDERED: ONDANSETRON HCL 4 MG/2 ML VIAL IVP PRN (22:15)
[2017-02-19] MEDS ORDERED: SODIUM CHLORIDE 0.9% FLUSH 10 ML FLUSH IV FLUSH PRN (22:15)
[2017-02-19] MEDS ORDERED: LORazepam 2 MG TAB PO PRN (22:15)
[2017-02-19] MEDS ORDERED: HALOPERIDOL LACTATE 5 MG/ML AMP IM PRN (22:15)
[2017-02-19] MEDS ORDERED: MAGNESIUM HYDROXIDE SUSP 30 ML CUP PO PRN (22:15)
[2017-02-19] MEDS ORDERED: LACTULOSE SYRUP 20 GM/30 ML CUP PO PRN (22:15)
[2017-02-19] MEDS ORDERED: FLUMAZENIL 0.5 MG/5 ML VIAL IV PUSH PRN (22:15)
[2017-02-19] MEDS ORDERED: ACETAMINOPHEN 325 MG TAB PO PRN (22:15)
[2017-02-19] MEDS ORDERED: RESP: ALBUTEROL 2.5 MG/IPRATROPIUM 0.5 MG NEB (PRN) NEB (22:15)
[2017-02-19] MEDS ORDERED: SENNOSIDES 8.6 MG TAB PO PRN (22:15)
[2017-02-19 22:42] VITALS: BP 133/67
--- NOTE | 2017-02-19 22:42 | RADRPT ---
EXAM DATE/TIME: 02/19/2017 22:15 [facility] COMPARISON: No previous studies available for comparison. INDICATIONS : COPD. Chest pain for 2 days. Abnormal CXR IV CONTRAST: 71 cc Omnipaque 350 (iohexol) IV RADIATION DOSE: 4.97 CTDIvol (mGy) MEDICAL HISTORY : Chronic obstructive pulmonary disease. Cardiovascular disease SURGICAL HISTORY : cardiac stents ENCOUNTER: Initial ACUITY: 2 days PAIN SCALE: 7/10 LOCATION: chest TECHNIQUE: Volumetric scanning of the chest was performed. Using automated exposure control and adjustment of t he mA and/or kV according to patient size, radiation dose was kept as low as reasonably achievable to obtain optimal diagnostic quality images. DICOM format image data is available electronically for review and comparison. Follow-up recommendations for detected pulmonary nodules are based at a minimum on nodule size and pa tient risk factors according to Fleischner Society Guidelines. FINDINGS: There is a cavitary left upper lobe subpleural pulmonary mass that measures approximately 3.1 x 2.5 x 3.8 cm. Wall thickness is on the order of 3-6 mm. There is a surrounding area of mild parenchymal co nsolidation. A similar lesion measuring approximately 1.9 cm in size is seen in the left perihilar re gion. There is also a mildly nodular area of parenchymal consolidation, probably scarring, in the rig ht lower lobe and measures 1.5 x 1.8 cm. Mild emphysema noted. No pleural effusion. No pneumothorax. There is no mediastinal, hilar or axillary lymphadenopathy. Normal heart size. Coronary artery calcification noted, mostly left anterior descending. No acute bony abnormality demonstrated. CONCLUSION: 1. There is a cavitary mass in peripheral the left upper lobe. A smaller mass is seen more centrally in the left upper lobe adjacent to the hilum. Infectious etiologies would be most likely. Tuberculosi s is in the differential. Cavitary malignancy not excludable. 2. No lymphadenopathy. 3. Mild emphysema. Rik Kunz MD on February 19, 2017 at 22:37 Board Certified Radiologist. This report was verified electronically.
[2017-02-19 23:12] VITALS: BP 124/71; PULSE 96; RESP 20; TEMP 98.3; O2SAT 95
[2017-02-19 23:30] VITALS: O2SAT 96
[2017-02-19] MEDS: MORPHINE SULFATE 2 MG/ML INJ IV PRN (23:40)
[2017-02-20] VITALS (7 sets, daily range): BP systolic 133–147; BP diastolic 69–92; PULSE 69–93; RESP 15–20; TEMP 98.1–98.8; O2SAT 94–98
[2017-02-20 07:13] LABS: AUTOMATED NEUTROPHIL # 6.6 TH/MM3 (1.8-7.7); BASOPHIL # 0.1 TH/MM3 (0-0.2); BASOPHIL % 0.8 % (0.0-2.0); EOSINOPHIL # 0.2 TH/MM3 (0-0.4); EOSINOPHIL % 2.3 % (0.0-4.0); HEMATOCRIT 40.3 % (35.0-46.0); HEMO FLAGS DIFF FINAL; LYMPH % 27.6 % (9.0-44.0); LYMPHOCYTE # 2.8 TH/MM3 (1.0-4.8); MEAN CELL VOLUME 95.9 FL (80.0-100.0); MEAN CORPUSCULAR HEMOGLOBIN 32.9 PG (27.0-34.0); MEAN CORPUSCULAR HGB CONC 34.3 % (32.0-36.0); MONO % 5.7 % (0.0-8.0); NEUT % 63.6 % (16.0-70.0); PLATELET COUNT 314 TH/MM3 (150-450); RED BLOOD COUNT 4.21 MIL/MM3 (4.00-5.30); RED CELL DISTRIBUTION WIDTH 13.8 % (11.6-17.2); WHITE BLOOD COUNT 10.3 TH/MM3 (4.0-11.0)
[2017-02-20 07:23] LABS: CHLORIDE 104 MEQ/L (98-107); SODIUM (NA) 140 MEQ/L (136-145)
[2017-02-20 07:28] LABS: BLOOD UREA NITROGEN 21 MG/DL (7-18)
[2017-02-20 07:31] LABS: ALT (GPT) 46 U/L (10-53); ANION GAP 9 MEQ/L (5-15); AST (GOT) 62 U/L (15-37); BICARBONATE 26.6 MEQ/L (21.0-32.0); GLOMERULAR FILTRATION RATE 122 ML/MIN (>89)
[2017-02-20 07:32] LABS: TOTAL BILIRUBIN ADULT 0.8 MG/DL (0.2-1.0)
[2017-02-20 07:34] LABS: ALKALINE PHOSPHATASE 56 U/L (45-117)
[2017-02-20] MEDS: FOLIC ACID 1 MG TAB PO SCH ×2 (08:02→11:47)
[2017-02-20] MEDS: LORazepam 1 MG TAB PO PRN ×3 (08:02→17:20)
[2017-02-20] MEDS: THIAMINE HCL 100 MG TAB PO SCH (08:02)
[2017-02-20] MEDS: ACETAMINOPHEN/HYDROcodone 325 MG/5 MG TAB PO PRN ×3 (08:03→18:39)
[2017-02-20] MEDS: MULTIVITAMINS/MINERALS THERAPEUTIC TAB PO SCH (08:03)
[2017-02-20] MEDS: DOCUSATE SODIUM 50 MG/SENNA 8.6 MG TAB PO SCH ×2 (08:03→20:25)
[2017-02-20] MEDS ORDERED: ALBUTEROL SULFATE 90 MCG/ACT HFA 8 GM INHALER INH PRN (08:45)
[2017-02-20] MEDS: SODIUM CHLORIDE 0.9% FLUSH 10 ML FLUSH IV FLUSH SCH ×2 (09:00→20:24)
[2017-02-20] MEDS: METOPROLOL TARTRATE 25 MG TAB PO SCH ×2 (09:00→20:25)
--- NOTE | 2017-02-20 09:28 | HHI.HP ---
[facility] Service [facility] Primary Care Physician No Primary Care Physician Admission Diagnosis cavitating lung mass Diagnoses: (1) Cavitating mass of lung Diagnosis: Principal (2) Dyspnea Diagnosis: Secondary (3) Cough Diagnosis: Secondary (4) Chest tightness Diagnosis: Secondary (5) Tobacco abuse Diagnosis: Principal Chief Complaint: Worsening cough and chest tightness Travel History International Travel<30 Days: No Contact w/Intl Traveler <30 Da: No Traveled to Known Affected Are: No History of Present Illness Written by Cindy Malone, acting as scribe for Dr. Travis on 02/20/17 at 13: 43. Ms. Bhat is a 56-year-old female patient with a known medical history of CAD with stent placement, hyperlipidemia, alcohol abuse and tobacco abuse who presented to the ED with complaints of worsening cough and chest tightness. Patient states she has had a productive cough and worsening chest tightness the last 2 days. She states she was hospitalized a couple months ago with chest pain and underwent a cardiac catheterization with stent placement. Since her hospitalization patient has been feeling overall healthy until a few days ago when she developed a productive cough. She also states she has associate chest discomfort located in her midsternal chest, intermittent, squeezing and tight in nature, lasting a few minutes and then resolves. Patient has used Nitroglycerin SL several times with relief. Activity seems to makes the pain worse when present. Denies any recent fever, chills, hemoptysis, headache, abdominal pain, nausea, vomiting, diarrhea or dysuria. She does admit to increasing life stressors leading her to drink alcohol again after quitting three months ago. She does admit to current tobacco use. She does admit to compliance with medication until she ran out of them about 3 weeks ago. Does not have insurance and has not followed up PCP. Review of Systems Constitutional: DENIES: Fever, Chills Eyes: DENIES: Blurred vision Respiratory: COMPLAINS OF: Cough, Shortness of breath Cardiovascular: COMPLAINS OF: Chest pain Gastrointestinal: DENIES: Abdominal pain, Black stools, Bloody stools, Constipation, Diarrhea, Vomiting Musculoskeletal: DENIES: Joint pain Psychiatric: COMPLAINS OF: Anxiety Except as stated in HPI: all other systems reviewed are Neg Past Family Social History Past Medical History CAD with stent placement Tobacco abuse History of alcohol abuse Past Surgical History Appendectomy Reported Medications Active Ramipril 2.5 Mg Cap 2.5 Mg PO DAILY Metoprolol Tartrate 25 Mg Tab 25 Mg PO BID Ventolin Hfa 18 GM Inh (Albuterol Sulfate) 90 Mcg/Act Aer 2 Puff INH Q4-6H PRN Hydrocodone-Acetaminophen 7.5-325 mg Tab 1 Tab PO Q4H PRN Nitrostat SL (Nitroglycerin) 0.4 Mg Subl 0.4 Mg SL Q5M PRN Folic Acid 1 Mg Tablet 1 Mg PO DAILY Aspirin Low Strength (Aspirin) 81 Mg Chew 162 Mg PO DAILY Atorvastatin (Atorvastatin Calcium) 20 Mg Tab 20 Mg PO HS Plavix (Clopidogrel Bisulfate) 75 Mg Tab 75 Mg PO DAILY Allergies: Coded Allergies: No Known Allergies (Verified Adverse Reaction, Unknown, 02/19/17) Active Ordered Medications Current Medications Medications (Trade) Dose Ordered Sig/Conrad Route Start Time Stop Time Status Last Admin (Folate) 1 mg DAILY PO 02/20/17 09:00 02/25/17 08:59 02/20/17 08:02 (Vitamin B1) 100 mg DAILY PO 02/20/17 09:00 02/20/17 08:02 (Theragran M Tab) 1 tab DAILY PO 02/20/17 09:00 02/25/17 08:59 02/20/17 08:03 (Romazicon Inj) 0.2 mg Q1M PRN IV PUSH 02/19/17 22:15 (Ativan) 1 mg Q4H PRN PO 02/19/17 22:15 02/20/17 08:02 (Ativan Inj) 1 mg Q4H PRN IV PUSH 02/19/17 22:15 (Ativan) 2 mg Q2H PRN PO 02/19/17 22:15 (Ativan Inj) 2 mg Q2H PRN IV PUSH 02/19/17 22:15 (Ativan Inj) 2 mg Q1H PRN IV PUSH 02/19/17 22:15 (Ativan Inj) 2 mg Q15M PRN IV PUSH 02/19/17 22:15 (Haldol Inj) 2 mg Q15M PRN IM 02/19/17 22:15 (NS Flush) 2 ml UNSCH PRN IV FLUSH 02/19/17 22:15 02/19/17 23:40 (NS Flush) 2 ml BID IV FLUSH 02/20/17 09:00 (Zofran Inj) 4 mg Q6H PRN IVP 02/19/17 22:15 (Tylenol) 650 mg Q6H PRN PO 02/19/17 22:15 (Tower 5-325 Mg) 1 tab Q4H PRN PO 02/19/17 22:15 02/20/17 08:03 (Morphine Inj) 2 mg Q3H PRN IV 02/19/17 22:15 02/19/17 23:40 (Desiree-Colace) 1 tab BID PO 02/20/17 09:00 02/20/17 08:03 (Milk Of Magnesia Liq) 30 ml Q12H PRN PO 02/19/17 22:15 (Senokot) 17.2 mg Q12H PRN PO 02/19/17 22:15 (Dulcolax Supp) 10 mg DAILY PRN RECTAL 02/19/17 22:15 (Lactulose Liq) 30 ml DAILY PRN PO 02/19/17 22:15 (Duoneb Neb) 1 ampule Q4HR NEB PRN NEB 02/19/17 22:15 02/19/17 23:29 (Proair Hfa Inh) 2 puff BID PRN INH 02/20/17 08:45 UNV (Aspirin Chew) 162 mg DAILY PO 02/20/17 09:00 UNV (Lipitor) 20 mg HS PO 02/20/17 21:00 UNV (Plavix) 75 mg DAILY PO 02/20/17 09:00 UNV (Folate) 1 mg DAILY PO 02/20/17 09:00 UNV (Lopressor) 25 mg BID PO 02/20/17 09:00 UNV (Altace) 2.5 mg DAILY PO 02/20/17 09:00 UNV Family History Maternal family medical history significant for lung cancer. Social History Does admit to current tobacco use. States she used to drink alcohol daily and has now been doing better with that. Denies any illicit drug use. Physical Exam Vital Signs Vital Signs Date Time Temp Pulse Resp B/P (MAP) Pulse Ox O2 Delivery O2 Flow Rate FiO2 02/20/17 04:00 98.5 86 20 142/69 (93) 95 02/20/17 00:00 93 02/19/17 23:30 96 21 02/19/17 23:12 98.3 96 20 124/71 (88) 95 02/19/17 22:42 88 16 133/67 (89) 95 02/19/17 20:42 95 02/19/17 20:26 99.2 109 20 136/71 (92) 95 Room Air 02/19/17 20:23 109 18 95 Room Air 02/19/17 20:12 99.2 116 18 124/61 (82) 94 Physical Exam GENERAL: This is a well-nourished, well-developed female patient, sitting up in bed in no apparent distress. SKIN: No rashes, ecchymoses or lesions. Warm and dry. HEENT: Atraumatic. Normocephalic. Pupils equal round and reactive. Extraocular motions intact. No scleral icterus. No injection or drainage. Nose without bleeding, purulent drainage or septal hematoma. Throat without erythema, tonsillar hypertrophy or exudate. Uvula midline. Airway patent. NECK: Trachea midline. No JVD or lymphadenopathy. Supple, nontender, no meningeal signs. CARDIOVASCULAR: Regular rate and rhythm without murmurs, gallops, or rubs. RESPIRATORY: Clear to auscultation. Breath sounds equal bilaterally. No wheezes , rales, or rhonchi. GASTROINTESTINAL: Abdomen soft, non-tender, nondistended. No guarding. MUSCULOSKELETAL: Extremities without clubbing, cyanosis, or edema. No joint tenderness, effusion, or edema noted. NEUROLOGICAL: Awake and alert. Cranial nerves II through XII intact. Motor and sensory grossly within normal limits. Five out of 5 muscle strength in all muscle groups. Normal speech. Laboratory Laboratory Tests Test 02/19/17 20:30 02/20/17 01:00 02/20/17 06:30 White Blood Count 9.1 10.3 Red Blood Count 4.54 4.21 Hemoglobin 14.5 13.8 Hematocrit 43.4 40.3 Mean Corpuscular Volume 95.8 95.9 Mean Corpuscular Hemoglobin 32.0 32.9 Mean Corpuscular Hemoglobin Concent 33.4 34.3 Red Cell Distribution Width 13.8 13.8 Platelet Count 384 314 Mean Platelet Volume 7.3 7.4 Neutrophils (%) (Auto) 49.2 63.6 Lymphocytes (%) (Auto) 40.7 27.6 Monocytes (%) (Auto) 6.3 5.7 Eosinophils (%) (Auto) 1.8 2.3 Basophils (%) (Auto) 2.0 0.8 Neutrophils # (Auto) 4.4 6.6 Lymphocytes # (Auto) 3.7 2.8 Monocytes # (Auto) 0.6 0.6 Eosinophils # (Auto) 0.2 0.2 Basophils # (Auto) 0.2 0.1 CBC Comment DIFF FINAL DIFF FINAL Differential Comment Blood Urea Nitrogen 25 21 Creatinine 0.71 0.52 Random Glucose 130 93 Total Protein 7.8 7.4 Albumin 3.8 3.7 Calcium Level 8.4 8.7 Magnesium Level 2.1 Alkaline Phosphatase 62 56 Aspartate Amino Transf (AST/SGOT) 45 62 Alanine Aminotransferase (ALT/SGPT) 37 46 Total Bilirubin 0.5 0.8 Sodium Level 140 140 Potassium Level 3.9 4.0 Chloride Level 104 104 Carbon Dioxide Level 23.1 26.6 Anion Gap 13 9 Estimat Glomerular Filtration Rate 85 122 Troponin I LESS THAN 0.02 LESS THAN 0.02 LESS THAN 0.02 Ethyl Alcohol Level 278 Result Diagram: 02/20/1762902/20/17629 Imaging Last Impressions Chest CT 02/19/172154 Signed Impressions: Service Date/Time: Sunday, February 19, 2017 22:15 - CONCLUSION: 1. There is a cavitary mass in peripheral the left upper lobe. A smaller mass is seen more centrally in the left upper lobe adjacent to the hilum. Infectious etiologies would be most likely. Tuberculosis is in the differential. Cavitary malignancy not excludable. 2. No lymphadenopathy. 3. Mild emphysema. Rik Kunz MD Chest X-Ray 02/19/172027 Signed Impressions: Service Date/Time: Sunday, February 19, 2017 20:44 - CONCLUSION: 3.5 cm cavitary mass of the left upper lobe. CT of the chest, preferably with intravenous contrast, is recommended. Rik Kunz MD Caprini VTE Risk Assessment Caprini VTE Risk Assessment: No/Low Risk (score <= 1) Caprini Risk Assessment Model Point Value = 1 Point Value = 2 Point Value = 3 Point Value = 5 Age 41-60 Minor surgery BMI > 25 kg/m2 Swollen legs Varicose veins or History of unexplained or recurrent spontaneous Oral contraceptives or hormone replacement Sepsis (< 1 month) Serious lung disease, including pneumonia (< 1 month) Abnormal pulmonary function Acute myocardial infarction Congestive heart failure (< 1 month) History of inflammatory bowel disease Medical patient at bed rest Age 61-74 Arthroscopic surgery Major open surgery (> 45 min) Laparoscopic surgery (> 45 min) Malignancy Confined to bed (> 72 hours) Immobilizing plaster cast Central venous access Age >= 75 History of VTE Family history of VTE Factor V Leiden Prothrombin [id number] Lupus anticoagulant Anticardiolipin antibodies Elevated serum homocysteine Heparin-induced thrombocytopenia Other congenital or acquired thrombophilia Stroke (< 1 month) Elective arthroplasty Hip, pelvis, or leg fracture Acute spinal cord injury (< 1 month) Prophylaxis Regimen Total Risk Factor Score Risk Level Prophylaxis Regimen 0-1 Low Early ambulation 2 Moderate Order ONE of the following: *Sequential Compression Device (SCD) *Heparin 5000 units SQ BID 3-4 Higher Order ONE of the following medications: *Heparin 5000 units SQ TID *Enoxaparin/Lovenox 40 mg SQ daily (WT < 150 kg, CrCl > 30 mL/min) *Enoxaparin/Lovenox 30 mg SQ daily (WT < 150 kg, CrCl > 10-29 mL/min) *Enoxaparin/Lovenox 30 mg SQ BID (WT < 150 kg, CrCl > 30 mL/min) AND/OR *Sequential Compression Device (SCD) 5 or more Highest Order ONE of the following medications: *Heparin 5000 units SQ TID (Preferred with Epidurals) *Enoxaparin/Lovenox 40 mg SQ daily (WT < 150 kg, CrCl > 30 mL/min) *Enoxaparin/Lovenox 30 mg SQ daily (WT < 150 kg, CrCl > 10-29 mL/min) *Enoxaparin/Lovenox 30 mg SQ BID (WT < 150 kg, CrCl > 30 mL/min) AND *Sequential Compression Device (SCD) Assessment and Plan Assessment and Plan Ms. Bhat is a 56-year-old female patient with a known medical history of CAD with stent placement, hyperlipidemia, alcohol abuse and tobacco abuse who presented to the ED with complaints of worsening cough and chest tightness. Patient states she has had a productive cough and worsening chest tightness the last 2 days. New cavitary mass in left upper lobe with presence of productive cough and chest tightness rule out TB vs infectious process vs PNA vs malignancy CXR reviewed showing 3.5 cm cavitary mass of the left upper lobe. CT chest reviewed showing cavitary mass in peripheral left upper lobe. A smaller mass seen more centrally in the left upper lobe adjacent to the hilum. No lymphadenopathy. Mild emphysema. CBC and BMP reviewed essentially unremarkable. WBC WNL. Afebrile. Start unasyn sputum culture and AFB pending. QFT pending. consult ID, consider pulm consult Duonebs available PRN. Continue home inhaler. Chest tightness Serial troponins and serial EKGs have been ordered for ruling out ACS purposes. Troponins flat. EKG reviewed showing NSR HR controlled, no arrhythmias or ST changes to indicate ischemia Control pain, Tower PO PRN as need per pain scale. Morphine IV PRN as needed per pain scale. History of CAD with stent placement: Continue home Plavix. Continue home Ramipril, metoprolol and aspirin. Dyslipidemia: Continue home Atorvastatin. Alcohol abuse: Ethyl alcohol level 278 on presentation. Patient counselled on cessation. Monitor for withdrawals. CIWA protocol initiated. Continue multivitamin, folic acid and thiamine. Tobacco abuse: Counselled on cessation. DVT prophylaxis: SCDs. This note was transcribed by scribe. Summers, Dr. Shayna Travis personally performed the history, physical exam, and medical decision making; and confirmed the accuracy of the information in the transcribed note. Authenticated by Dr. Shayna Travis on 02/20/17 at 13:51. Code Status Full code. Discussed Condition With Patient. Ean Malonesschilo ISIDRO Feb 20, 2017 09:28 Shayna Travis MD Feb 20, 2017 13:52
[2017-02-20] MEDS: RAMIPRIL 2.5 MG CAP PO SCH (11:46)
[2017-02-20] MEDS: CLOPIDOGREL 75 MG TAB PO SCH (11:46)
[2017-02-20] MEDS: ASPIRIN 81 MG CHEW TAB PO SCH (11:46)
[2017-02-20] MEDS: AMPICILLIN-SULBACTAM INJ 3 GM in SODIUM CHLORIDE 0.9% INJ 100 ML IV SCH ×2 (11:47→17:20)
--- NOTE | 2017-02-20 12:56 | EKG ---
Date Performed: 02/19/2017 Time Performed: 20:34:37 PTAGE: 56 years EKG: Sinus rhythm Compared to prior tracing no significant change NORMAL ECG PREVIOUS TRACING : 12/25/2016 20.57 DOCTOR: Johann Dillon Interpretating Date/Time 02/20/2017 12:54:34
[2017-02-20] MEDS: MORPHINE SULFATE 2 MG/ML INJ IV PRN ×2 (14:46→20:26)
[2017-02-20 20:47] LABS: M. TUBERCULOSIS PCR NOT DETECTED (NOT DETECT)
[2017-02-20] MEDS ORDERED: ATORVASTATIN 20 MG TAB PO SCH (21:00)
[2017-02-21] VITALS: BP 130/80; PULSE 88; RESP 17; TEMP 98; O2SAT 98
[2017-02-21] MEDS: LORazepam 1 MG TAB PO PRN ×2 (00:51→12:17)
[2017-02-21 04:00] VITALS: BP 131/79; PULSE 79; RESP 18; TEMP 97.7; O2SAT 96
[2017-02-21] MEDS: AMPICILLIN-SULBACTAM INJ 3 GM in SODIUM CHLORIDE 0.9% INJ 100 ML IV SCH ×4 (06:54→11:38)
[2017-02-21 08:00] VITALS: BP 149/91; PULSE 76; RESP 16; TEMP 97.6; O2SAT 98
[2017-02-21] MEDS: DOCUSATE SODIUM 50 MG/SENNA 8.6 MG TAB PO SCH (08:08)
[2017-02-21] MEDS: FOLIC ACID 1 MG TAB PO SCH ×2 (08:08→09:00)
[2017-02-21] MEDS: THIAMINE HCL 100 MG TAB PO SCH (08:08)
[2017-02-21] MEDS: MULTIVITAMINS/MINERALS THERAPEUTIC TAB PO SCH (08:09)
[2017-02-21] MEDS: ASPIRIN 81 MG CHEW TAB PO SCH (08:09)
[2017-02-21] MEDS: METOPROLOL TARTRATE 25 MG TAB PO SCH (08:09)
[2017-02-21] MEDS: CLOPIDOGREL 75 MG TAB PO SCH (08:09)
[2017-02-21] MEDS: SODIUM CHLORIDE 0.9% FLUSH 10 ML FLUSH IV FLUSH SCH (08:10)
[2017-02-21] MEDS: RAMIPRIL 2.5 MG CAP PO SCH (09:00)
[2017-02-21] MEDS: MORPHINE SULFATE 2 MG/ML INJ IV PRN (11:38)
[2017-02-21 12:00] VITALS: BP 128/84; PULSE 88; RESP 16; TEMP 97.8; O2SAT 96
--- NOTE | 2017-02-21 15:07 | HHI.PR ---
Subjective Remarks Follow-up New cavitary mass in left upper lobe 02/21/17-patient seen and examined, denies any cough production production or febrile episode.. M tuberculosis PCR negative. She would like to leave AMA who states she has to take care of her family members as well as go back to work tomorrow Objective Vitals Vital Signs Date Time Temp Pulse Resp B/P (MAP) Pulse Ox O2 Delivery O2 Flow Rate FiO2 02/21/17 12:00 97.8 88 16 128/84 (99) 96 02/21/17 08:00 97.6 76 16 149/91 (110) 98 02/21/17 04:00 97.7 79 18 131/79 (96) 96 02/21/17 00:00 98.0 88 17 130/80 (97) 98 02/20/17 20:00 98.2 70 16 141/83 (102) 96 02/20/17 19:35 98 21 02/20/17 16:00 98.1 74 16 133/80 (97) 95 I/O 02/20/17 02/20/17 02/20/17 02/21/17 02/21/17 02/21/17 06:59 14:59 22:59 06:59 14:59 22:59 Intake Total 961 ml 100 ml 100 ml Balance 961 ml 100 ml 100 ml Intake Oral 960 ml IV Total 1 ml 100 ml 100 ml # Voids 2 3 3 Result Diagram: 02/20/1730 02/20/17 0630 Imaging Last Impressions Chest CT 02/19/172154 Signed Impressions: Service Date/Time: Sunday, February 19, 2017 22:15 - CONCLUSION: 1. There is a cavitary mass in peripheral the left upper lobe. A smaller mass is seen more centrally in the left upper lobe adjacent to the hilum. Infectious etiologies would be most likely. Tuberculosis is in the differential. Cavitary malignancy not excludable. 2. No lymphadenopathy. 3. Mild emphysema. Rik Kunz MD Chest X-Ray 02/19/172027 Signed Impressions: Service Date/Time: Sunday, February 19, 2017 20:44 - CONCLUSION: 3.5 cm cavitary mass of the left upper lobe. CT of the chest, preferably with intravenous contrast, is recommended. Rik Kunz MD Objective Remarks GENERAL: NAD SKIN: Warm and dry. HEAD: Normocephalic. EYES: No scleral icterus. No injection or drainage. NECK: Supple, trachea midline. No JVD or lymphadenopathy. CARDIOVASCULAR: Regular rate and rhythm without murmurs, gallops, or rubs. RESPIRATORY: Breath sounds Decrease L>R . No accessory muscle use. GASTROINTESTINAL: Abdomen soft, non-tender, nondistended. MUSCULOSKELETAL: No cyanosis, or edema. BACK: Nontender without obvious deformity. No CVA tenderness. A/P Problem List: (1) Cavitating mass of lung ICD Code: J98.4 - Other disorders of lung Status: Acute (2) Dyspnea ICD Code: R06.00 - Dyspnea, unspecified (3) Cough ICD Code: R05 - Cough (4) Chest tightness ICD Code: R07.89 - Other chest pain Status: Acute (5) Tobacco abuse ICD Code: Z72.0 - Tobacco use Status: Chronic Assessment and Plan 56-year-old female with New cavitary mass in left upper lobe with presence of productive cough and chest tightness rule out TB vs infectious process vs PNA vs malignancy CXR reviewed showing 3.5 cm cavitary mass of the left upper lobe. CT chest reviewed showing cavitary mass in peripheral left upper lobe. A smaller mass seen more centrally in the left upper lobe adjacent to the hilum. CBC and BMP reviewed essentially unremarkable. WBC WNL. Afebrile. Currently on Unasyn pending evaluation from infectious disease specialist and may consider pulmonary medicine for evaluation for possible bronchoscopy M tuberculosis PCR negative sputum culture and AFB pending. QFT pending. Duonebs available PRN. Continue home inhaler. Atypical chest pain Resolved ACS ruled out per protocol with serial cardiac enzyme and EKG Control pain, Morton PO PRN as need per pain scale. Morphine IV PRN as needed per pain scale. History of CAD with stent placement: Continue home Plavix. Continue home Ramipril, metoprolol and aspirin. Dyslipidemia: Continue home Atorvastatin. Alcohol abuse: Patient counselled on cessation. Monitor for withdrawals. CIWA protocol initiated. Continue multivitamin, folic acid and thiamine. Tobacco abuse: Counselled on cessation. DVT prophylaxis: SCDs. Jaosn Macario MD Feb 21, 2017 15:07
--- NOTE | 2017-02-21 15:12 | HHI.DS ---
Discharge Summary Admission Date Feb 20, 2017 at 11:09 Discharge Date: Feb 21, 2017 Admitting Diagnosis cavitating lung mass (1) Cavitating mass of lung ICD Code: J98.4 - Other disorders of lung Diagnosis: Principal Status: Acute (2) Dyspnea ICD Code: R06.00 - Dyspnea, unspecified Diagnosis: Secondary (3) Cough ICD Code: R05 - Cough Diagnosis: Secondary (4) Chest tightness ICD Code: R07.89 - Other chest pain Diagnosis: Secondary Status: Acute (5) Tobacco abuse ICD Code: Z72.0 - Tobacco use Diagnosis: Principal Status: Chronic Procedures none Brief History - From Admission Ms. Bhat is a 56-year-old female patient with a known medical history of CAD with stent placement, hyperlipidemia, alcohol abuse and tobacco abuse who presented to the ED with complaints of worsening cough and chest tightness. Patient states she has had a productive cough and worsening chest tightness the last 2 days. She states she was hospitalized a couple months ago with chest pain and underwent a cardiac catheterization with stent placement. Since her hospitalization patient has been feeling overall healthy until a few days ago when she developed a productive cough. She also states she has associate chest discomfort located in her midsternal chest, intermittent, squeezing and tight in nature, lasting a few minutes and then resolves. Patient has used Nitroglycerin SL several times with relief. Activity seems to makes the pain worse when present. Denies any recent fever, chills, hemoptysis, headache, abdominal pain, nausea, vomiting, diarrhea or dysuria. She does admit to increasing life stressors leading her to drink alcohol again after quitting three months ago. She does admit to current tobacco use. She does admit to compliance with medication until she ran out of them about 3 weeks ago. Does not have insurance and has not followed up PCP. CBC/BMP: 02/20/17 0630 02/20/17 0630 Significant Findings Laboratory Tests Test 02/19/17 20:30 02/20/17 01:00 02/20/17 06:30 02/20/17 14:30 Blood Urea Nitrogen 25 MG/DL (7-18) 21 MG/DL (7-18) Random Glucose 130 MG/DL (74-106) Calcium Level 8.4 MG/DL (8.5-10.1) Aspartate Amino Transf (AST/SGOT) 45 U/L (15-37) 62 U/L (15-37) Estimat Glomerular Filtration Rate 85 ML/MIN (>89) Troponin I LESS THAN 0.02 NG/ML LESS THAN 0.02 NG/ML LESS THAN 0.02 NG/ML Ethyl Alcohol Level 278 MG/DL (0-5) Test 02/20/17 14:58 PE at Discharge GENERAL: NAD SKIN: Warm and dry. HEAD: Normocephalic. EYES: No scleral icterus. No injection or drainage. NECK: Supple, trachea midline. No JVD or lymphadenopathy. CARDIOVASCULAR: Regular rate and rhythm without murmurs, gallops, or rubs. RESPIRATORY: Breath sounds Decrease L>R . No accessory muscle use. GASTROINTESTINAL: Abdomen soft, non-tender, nondistended. MUSCULOSKELETAL: No cyanosis, or edema. BACK: Nontender without obvious deformity. No CVA tenderness. Hospital Course Patient signed AMA on 02/21/17, however prior to leaving she was treated for; New cavitary mass in left upper lobe for which she was started on IV antibiotic including Unasyn with consultation to infectious disease specialist. M tuberculosis PCR was negative however for QFT and sputum culture pending. Treatment for other chronic medical conditions were resumed. Pt Condition on Discharge: Stable Discharge Disposition: Discharge Home Discharge Time: <= 30 minutes Jason Macario MD Feb 21, 2017 15:11
[2017-02-22 19:30] LABS: MITOGEN MINUS NIL RESULT 9.84 IU/mL; NIL RESULT 0.03 IU/mL; QUANTIFERON TB GOLD RESULT Negative (Negative)
== END 2017-02-21 15:08 | disposition left against medical advice (07) | DRG 206 ==
LOC: PHED 20:11 → PHEDA 22:09 → PH3B 22:49 → OBSVTOIN 02-20 11:09
PROVIDERS: ADMIT Hospitalist; ATTEND Hospitalist
DX: J98.4 Other disorders of lung (principal); E78.5 Hyperlipidemia, unspecified; F10.120 Alcohol abuse with intoxication, uncomplicated; Y90.8 Blood alcohol level of 240 mg/100 ml or more; I25.10 Atherosclerotic heart disease of native coronary artery without angina pectoris; F17.210 Nicotine dependence, cigarettes, uncomplicated; R06.00 Dyspnea, unspecified; Z95.5 Presence of coronary angioplasty implant and graft
CPT/HCPCS: 71020; 71260; 80053; 80307; 82948; 83735; 84484; 85025; 86480; 87015; 87070; 87102; 87116; 87205; 87206; 87556; 87798; 87804; 93005; 94150; 94664; 96374; G0378; J0295; J2270; Q9967